=== PATIENT | male | born 1955 | race Caucasian/White ===

== ENCOUNTER 2017-06-29 06:58 | Inpatient (IN) | payer MEDICARE ==
[~2017-06-29] VITALS: Ht 180.3 cm; Wt 75.4 kg
[~2017-06-29 06:58] MED LIST: cholesterol med; htn med; thyroid med
[2017-06-29] MEDS ORDERED: SODIUM CHLORIDE FLUSH 10ML SYR IVF ONE (07:30)
[2017-06-29] MEDS ORDERED: MORPHINE SULFATE 4 MG/ML, 1ML IV PRN (07:30)
[2017-06-29] MEDS ORDERED: ONDANSETRON 2MG/ML, 2ML IVPush ONE (07:30)
[2017-06-29] MEDS ORDERED: SODIUM CHLORIDE 0.9% 1,000ML IVBOLUS ONE (07:30)
[2017-06-29 07:49] LABS: BASOPHILS # (AUTO) 0.04 x10^3/uL (0-0.1); BASOPHILS % (AUTO) 0 % (0-1); EOSINOPHILS # (AUTO) 0.16 x10^3/uL (0-0.4); EOSINOPHILS % (AUTO) 2 % (1-7); LYMPHOCYTES # (AUTO) 1.53 x10^3/uL (1-3.4); LYMPHOCYTES % (AUTO) 16 % (22-44); MD NO; MEAN CORPUSCULAR HEMOGLOBIN 30.2 pg (27.5-34.5); MEAN CORPUSCULAR HGB CONC 33.2 g/dL (33.2-36.2); MEAN CORPUSCULAR VOLUME 90.9 fL (81-97); MEAN PLATELET VOLUME 6.8 fL (7.4-10.4); MONOCYTES # (AUTO) 0.85 x10^3/uL (0.2-0.8); MONOCYTES % (AUTO) 9 % (2-9); NEUTROPHILS # (AUTO) 7.03 x10^3/uL (1.8-6.8); NEUTROPHILS % (AUTO) 73 % (42-75); PLATELET COUNT 304 x10^3/uL (130-400); RED BLOOD COUNT 4.79 x10^6/uL (4.38-5.82); RED CELL DISTRIBUTION WIDTH 15.2 % (9.4-14.8)
[2017-06-29] MEDS ORDERED: ONDANSETRON 2MG/ML, 2ML ONE (07:57)
[2017-06-29] MEDS ORDERED: CLINDAMYCIN PMX 900MG/50ML 50 ML ONE (07:57)
[2017-06-29] MEDS ORDERED: morphine SULFATE 10 MG/ML, 1ML ONE (07:57)
[2017-06-29 07:59] LABS: CHLORIDE 107 mmol/L (98-107)
[2017-06-29 08:00] LABS: ALANINE AMINOTRANSFERASE 58 U/L (12-78); ALBUMIN 3.1 g/dL (3.4-5.0); ANION GAP 4 mmol/L (5-15); CALCIUM 8.8 mg/dL (8.5-10.1)
[2017-06-29] MEDS ORDERED: CLINDAMYCIN PMX 900MG/50ML 50 ML IV ONE (08:00)
[2017-06-29 08:02] LABS: ALKALINE PHOSPHATASE 185 U/L (45-117); BILIRUBIN,TOTAL 1.2 mg/dL (0.2-1.0); CREATININE 1.11 mg/dL (0.7-1.3); TOTAL PROTEIN 8.3 g/dL (6.4-8.2)
[2017-06-29] MEDS ORDERED: SODIUM CHLORIDE 0.9% 1,000 ML IV ONE (09:06)
[2017-06-29] MEDS ORDERED: SODIUM CHLORIDE FLUSH 10ML SYR IVF PRN (09:30)
[2017-06-29] MEDS ORDERED: OXYcodone/APAP 5/325MG TABLET ONE (11:18)
[2017-06-29] MEDS ORDERED: OXYcodone/APAP 5/325MG TABLET PO ONE (11:30)
[2017-06-29] MEDS: morphine SULFATE 10 MG/ML, 1ML IVPush PRN ×4 (13:42→23:07)
[2017-06-29 14:00] VITALS: BP 124/74
[2017-06-29] MEDS ORDERED: VANCOMYCIN PMX 1GM/200ML 200 ML IV ONE (17:00)
[2017-06-29] MEDS ORDERED: BISACODYL 10 MG SUPP PR PRN (17:00)
[2017-06-29] MEDS ORDERED: hydrALAzine 20 MG/ML, 1ML IVPush PRN (17:00)
[2017-06-29] MEDS ORDERED: POLYETHYLENE GLYCOL 17 GM PACKET PO PRN (17:00)
[2017-06-29] MEDS ORDERED: ACETAMINOPHEN 325 MG TABLET PO PRN (17:00)
[2017-06-29] MEDS ORDERED: ENALAPRILAT 1.25 MG/ML, 2ML IVPush PRN (17:00)
[2017-06-29] MEDS ORDERED: VANCOMYCIN PER PHARMACY MC PRN (17:00)
[2017-06-29] MEDS ORDERED: PHARMACOKINETIC CONSULTATION MC ONE (17:30)
[2017-06-29] MEDS ORDERED: VANCOMYCIN 1,400 MG in SODIUM CHLORIDE 0.9% 250 ML IV SCH (17:30)
[2017-06-29] MEDS ORDERED: PHARMACOKINETIC MONITORING MC PRN (17:30)
[2017-06-29 17:32] LABS: HCT (SEDRATE) 44.9 % (39.2-51.8)
[2017-06-29 17:54] LABS: C-REACTIVE PROTEIN, QUANT 2.4 mg/dL (0.02-0.49); FREE T4 (FREE THYROXINE) 0.77 ng/dL (0.76-1.46); HEMOGLOBIN A1C 6.1 % (4.2-6.3); THYROID STIMULATING HORMONE 30.9 mIU/L (0.358-3.740)
[2017-06-29] MEDS: SODIUM CHLORIDE 0.9% 1,000 ML IV SCH (19:44)
[2017-06-29] MEDS: ERTAPENEM 1 GM in SODIUM CHLORIDE 0.9% 50 ML IV SCH (19:44)
[2017-06-29] MEDS: HEPARIN 5,000 UNITS/ML, 1ML SQ SCH (19:45)
[2017-06-29 19:56] VITALS: BP 129/75
[2017-06-29] MEDS: LORazepam 0.5MG TABLET PO PRN (22:55)
[2017-06-30 04:44] VITALS: BP 138/75
[2017-06-30] MEDS: morphine SULFATE 10 MG/ML, 1ML IVPush PRN ×6 (04:50→23:51)
[2017-06-30] MEDS: HEPARIN 5,000 UNITS/ML, 1ML SQ SCH ×3 (04:53→21:10)
[2017-06-30 05:37] LABS: ALBUMIN 2.4 g/dL (3.4-5.0); ANION GAP 4 mmol/L (5-15); CALCIUM 8.2 mg/dL (8.5-10.1); CHLORIDE 110 mmol/L (98-107)
[2017-06-30 05:41] LABS: ALANINE AMINOTRANSFERASE 46 U/L (12-78); ALKALINE PHOSPHATASE 144 U/L (45-117); BILIRUBIN,TOTAL 0.3 mg/dL (0.2-1.0); CHOL/HDL RATIO 3.4; CHOLESTEROL, TOTAL 100 mg/dL (140-239); CREATININE 0.98 mg/dL (0.7-1.3); HDL CHOL % 29 % (26-37); HDL CHOLESTEROL (DIRECT) 29 mg/dL (40-60); LDL CHOLESTEROL,CALCULATED 42 mg/dL (54-169); LDL/HDL RATIO 1.4 (0.5-3.0); TOTAL PROTEIN 6.9 g/dL (6.4-8.2); TRIGLYCERIDES 143 mg/dL (50-200); VLDL CHOLESTEROL 29 mg/dL (0-25)
[2017-06-30 05:43] LABS: BASOPHILS # (AUTO) 0.07 x10^3/uL (0-0.1); BASOPHILS % (AUTO) 1 % (0-1); EOSINOPHILS # (AUTO) 0.17 x10^3/uL (0-0.4); EOSINOPHILS % (AUTO) 3 % (1-7); LYMPHOCYTES # (AUTO) 1.52 x10^3/uL (1-3.4); LYMPHOCYTES % (AUTO) 23 % (22-44); MD NO; MEAN CORPUSCULAR HEMOGLOBIN 30.4 pg (27.5-34.5); MEAN CORPUSCULAR HGB CONC 33.5 g/dL (33.2-36.2); MEAN CORPUSCULAR VOLUME 90.8 fL (81-97); MEAN PLATELET VOLUME 7.2 fL (7.4-10.4); MONOCYTES % (AUTO) 11 % (2-9); NEUTROPHILS # (AUTO) 4.11 x10^3/uL (1.8-6.8); NEUTROPHILS % (AUTO) 63 % (42-75); PLATELET COUNT 231 x10^3/uL (130-400); RED BLOOD COUNT 4.16 x10^6/uL (4.38-5.82); RED CELL DISTRIBUTION WIDTH 15.2 % (9.4-14.8)
[2017-06-30] MEDS: SODIUM CHLORIDE 0.9% 1,000 ML IV SCH (06:03)
[2017-06-30 06:42] VITALS: BP 139/79
[2017-06-30 07:34] VITALS: BP 127/74
[2017-06-30 08:00] LABS: MICROSCOPIC NOT IND
[2017-06-30] MEDS: SENNA/DOCUSATE TABLET PO SCH (08:08)
[2017-06-30 08:15] LABS: CULTURE INDICATED? NO
[2017-06-30 15:38] VITALS: BP 144/75
[2017-06-30] MEDS: VANCOMYCIN 1,400 MG in SODIUM CHLORIDE 0.9% 250 ML IV SCH (17:10)
[2017-06-30 19:58] VITALS: BP 139/72
[2017-06-30] MEDS: ERTAPENEM 1 GM in SODIUM CHLORIDE 0.9% 50 ML IV SCH (20:21)
[2017-06-30] MEDS: ATORVASTATIN 20 MG TABLET PO SCH (21:10)
[2017-06-30] MEDS: LORazepam 0.5MG TABLET PO PRN (21:11)
[2017-07-01] MEDS: morphine SULFATE 10 MG/ML, 1ML IVPush PRN ×6 (02:46→20:42)
[2017-07-01 03:14] VITALS: BP 122/66
[2017-07-01] MEDS: LEVOTHYROXINE 100 MCG TABLET PO SCH (05:46)
[2017-07-01] MEDS: HEPARIN 5,000 UNITS/ML, 1ML SQ SCH ×3 (05:47→19:22)
[2017-07-01 05:51] LABS: ALBUMIN 2.6 g/dL (3.4-5.0); ANION GAP 3 mmol/L (5-15); CALCIUM 8.4 mg/dL (8.5-10.1); CHLORIDE 110 mmol/L (98-107)
[2017-07-01 05:54] LABS: ALANINE AMINOTRANSFERASE 51 U/L (12-78); ALKALINE PHOSPHATASE 166 U/L (45-117); BILIRUBIN,TOTAL 0.7 mg/dL (0.2-1.0); CREATININE 1.03 mg/dL (0.7-1.3); TOTAL PROTEIN 7.3 g/dL (6.4-8.2)
[2017-07-01 08:30] VITALS: BP 170/84
[2017-07-01] MEDS: SENNA/DOCUSATE TABLET PO SCH (08:55)
[2017-07-01] MEDS: VANCOMYCIN 1,400 MG in SODIUM CHLORIDE 0.9% 250 ML IV SCH (11:29)
[2017-07-01] MEDS: OXYcodone IR 5MG TABLET PO PRN ×2 (11:29→19:21)
[2017-07-01] MEDS: LOSARTAN 50MG TABLET PO SCH (13:13)
[2017-07-01 15:37] VITALS: BP 148/69
[2017-07-01] MEDS: ATORVASTATIN 20 MG TABLET PO SCH (19:21)
[2017-07-01] MEDS: ERTAPENEM 1 GM in SODIUM CHLORIDE 0.9% 50 ML IV SCH (19:22)
[2017-07-01 20:59] VITALS: BP 152/76
[2017-07-02] MEDS: OXYcodone IR 5MG TABLET PO PRN ×6 (01:04→21:06)
[2017-07-02 01:48] VITALS: BP 148/72
[2017-07-02] MEDS: LEVOTHYROXINE 100 MCG TABLET PO SCH (04:59)
[2017-07-02] MEDS: HEPARIN 5,000 UNITS/ML, 1ML SQ SCH ×3 (04:59→20:08)
[2017-07-02] MEDS: VANCOMYCIN 1,400 MG in SODIUM CHLORIDE 0.9% 250 ML IV SCH ×2 (05:00→23:55)
[2017-07-02 07:40] VITALS: BP 143/74
[2017-07-02] MEDS: SENNA/DOCUSATE TABLET PO SCH (08:16)
[2017-07-02] MEDS: LOSARTAN 50MG TABLET PO SCH (08:17)
[2017-07-02] MEDS: ONDANSETRON 2MG/ML, 2ML IVPush PRN (14:00)
[2017-07-02 14:52] VITALS: BP 139/81
[2017-07-02 19:12] VITALS: BP 152/78
[2017-07-02] MEDS: LORazepam 0.5MG TABLET PO PRN (20:08)
[2017-07-02] MEDS: ATORVASTATIN 20 MG TABLET PO SCH (20:08)
[2017-07-02] MEDS: ERTAPENEM 1 GM in SODIUM CHLORIDE 0.9% 50 ML IV SCH (20:08)
[2017-07-03] MEDS: morphine SULFATE 10 MG/ML, 1ML IVPush PRN (00:43)
[2017-07-03 01:22] VITALS: BP 98/56
[2017-07-03] MEDS: OXYcodone IR 5MG TABLET PO PRN ×6 (01:44→22:00)
[2017-07-03] MEDS: HEPARIN 5,000 UNITS/ML, 1ML SQ SCH ×3 (05:53→21:34)
[2017-07-03] MEDS: LEVOTHYROXINE 100 MCG TABLET PO SCH (05:53)
[2017-07-03 07:50] VITALS: BP 114/64
[2017-07-03] MEDS: LOSARTAN 50MG TABLET PO SCH (08:30)
[2017-07-03] MEDS: SENNA/DOCUSATE TABLET PO SCH (08:31)
[2017-07-03 09:54] VITALS: BP 104/59
[2017-07-03 13:45] VITALS: BP 115/68
[2017-07-03] MEDS: ONDANSETRON 2MG/ML, 2ML IVPush PRN (14:01)
[2017-07-03] MEDS: VANCOMYCIN 1,400 MG in SODIUM CHLORIDE 0.9% 250 ML IV SCH (17:14)
[2017-07-03 19:32] VITALS: BP 138/70
[2017-07-03] MEDS: ERTAPENEM 1 GM in SODIUM CHLORIDE 0.9% 50 ML IV SCH (20:10)
[2017-07-03] MEDS: LORazepam 0.5MG TABLET PO PRN (20:10)
[2017-07-03] MEDS: ATORVASTATIN 20 MG TABLET PO SCH (20:10)
[2017-07-04 02:38] VITALS: BP 119/67
[2017-07-04] MEDS: OXYcodone IR 5MG TABLET PO PRN ×4 (02:39→19:10)
[2017-07-04] MEDS: LEVOTHYROXINE 100 MCG TABLET PO SCH (05:49)
[2017-07-04] MEDS: HEPARIN 5,000 UNITS/ML, 1ML SQ SCH ×3 (05:49→21:48)
[2017-07-04 06:19] LABS: ANION GAP 6 mmol/L (5-15); BASOPHILS # (AUTO) 0.07 x10^3/uL (0-0.1); BASOPHILS % (AUTO) 1 % (0-1); CALCIUM 8.6 mg/dL (8.5-10.1); CHLORIDE 107 mmol/L (98-107); CREATININE 1.09 mg/dL (0.7-1.3); EOSINOPHILS # (AUTO) 0.24 x10^3/uL (0-0.4); EOSINOPHILS % (AUTO) 3 % (1-7); LYMPHOCYTES # (AUTO) 1.52 x10^3/uL (1-3.4); LYMPHOCYTES % (AUTO) 18 % (22-44); MD NO; MEAN CORPUSCULAR HEMOGLOBIN 30.3 pg (27.5-34.5); MEAN PLATELET VOLUME 7.1 fL (7.4-10.4); MONOCYTES # (AUTO) 0.85 x10^3/uL (0.2-0.8); MONOCYTES % (AUTO) 10 % (2-9); NEUTROPHILS # (AUTO) 5.75 x10^3/uL (1.8-6.8); NEUTROPHILS % (AUTO) 68 % (42-75); PLATELET COUNT 278 x10^3/uL (130-400); RED BLOOD COUNT 4.68 x10^6/uL (4.38-5.82); RED CELL DISTRIBUTION WIDTH 15.3 % (9.4-14.8)
[2017-07-04 07:33] VITALS: BP 130/71
[2017-07-04] MEDS: LOSARTAN 50MG TABLET PO SCH (08:10)
[2017-07-04] MEDS: SENNA/DOCUSATE TABLET PO SCH (08:10)
[2017-07-04] MEDS: VANCOMYCIN 1,400 MG in SODIUM CHLORIDE 0.9% 250 ML IV SCH (11:00)
[2017-07-04] MEDS: GABAPENTIN 100 MG CAPSULE PO SCH ×2 (19:10→20:08)
[2017-07-04] MEDS: METHOCARBAMOL 500 MG TABLET PO SCH ×2 (19:11→20:08)
[2017-07-04 19:41] VITALS: BP 118/67
[2017-07-04] MEDS: ATORVASTATIN 20 MG TABLET PO SCH (20:07)
[2017-07-04] MEDS: ERTAPENEM 1 GM in SODIUM CHLORIDE 0.9% 50 ML IV SCH (20:08)
[2017-07-04] MEDS: LORazepam 0.5MG TABLET PO PRN (21:48)
[2017-07-04 22:41] LABS: AMPHETAMINE SCREEN, URINE Negative (Negative); BARBITURATE SCREEN, URINE Negative (Negative); BENZODIAZEPINE SCREEN, URINE Negative (Negative); CANNABINOID SCREEN, URINE Negative (Negative); COCAINE SCREEN, URINE Negative (Negative); METHADONE SCREEN, URINE Negative (Negative); OPIATE SCREEN, URINE Positive (Negative)
[2017-07-05 01:17] VITALS: BP 117/67
[2017-07-05] MEDS: LEVOTHYROXINE 100 MCG TABLET PO SCH (06:01)
[2017-07-05] MEDS: HEPARIN 5,000 UNITS/ML, 1ML SQ SCH ×2 (06:01→18:10)
[2017-07-05] MEDS: METHOCARBAMOL 500 MG TABLET PO SCH ×4 (06:01→22:34)
[2017-07-05 07:42] VITALS: BP 113/62
[2017-07-05] MEDS: SENNA/DOCUSATE TABLET PO SCH (09:00)
[2017-07-05] MEDS: GABAPENTIN 100 MG CAPSULE PO SCH ×3 (09:09→22:34)
[2017-07-05] MEDS: OXYcodone IR 5MG TABLET PO PRN ×4 (09:10→22:35)
[2017-07-05] MEDS: LOSARTAN 50MG TABLET PO SCH (09:10)
[2017-07-05 13:25] VITALS: BP 102/62
[2017-07-05] MEDS: ERTAPENEM 1 GM in SODIUM CHLORIDE 0.9% 50 ML IV SCH (19:38)
[2017-07-05 19:59] VITALS: BP 102/57
[2017-07-05] MEDS: ATORVASTATIN 20 MG TABLET PO SCH (22:34)
[2017-07-05] MEDS: LORazepam 0.5MG TABLET PO PRN (22:34)
[2017-07-06 01:37] VITALS: BP 112/60
[2017-07-06] MEDS: HEPARIN 5,000 UNITS/ML, 1ML SQ SCH ×3 (02:58→18:23)
[2017-07-06] MEDS: ERTAPENEM 1 GM in SODIUM CHLORIDE 0.9% 50 ML IV SCH (03:14)
[2017-07-06] MEDS: LEVOTHYROXINE 100 MCG TABLET PO SCH (06:21)
[2017-07-06] MEDS: METHOCARBAMOL 500 MG TABLET PO SCH ×4 (06:21→21:41)
[2017-07-06] MEDS: OXYcodone IR 5MG TABLET PO PRN ×5 (06:22→23:32)
[2017-07-06 07:52] VITALS: BP 120/68
[2017-07-06] MEDS: SENNA/DOCUSATE TABLET PO SCH (09:00)
[2017-07-06] MEDS: LOSARTAN 50MG TABLET PO SCH (10:18)
[2017-07-06] MEDS: GABAPENTIN 100 MG CAPSULE PO SCH ×3 (10:18→21:41)
[2017-07-06 13:49] VITALS: BP 120/73
[2017-07-06 19:57] VITALS: BP 126/69
[2017-07-06] MEDS: ATORVASTATIN 20 MG TABLET PO SCH (21:41)
[2017-07-07] MEDS: LORazepam 0.5MG TABLET PO PRN (00:41)
[2017-07-07 01:52] VITALS: BP 148/74
[2017-07-07] MEDS: ERTAPENEM 1 GM in SODIUM CHLORIDE 0.9% 50 ML IV SCH (02:54)
[2017-07-07] MEDS: HEPARIN 5,000 UNITS/ML, 1ML SQ SCH ×3 (02:56→17:34)
[2017-07-07] MEDS: METHOCARBAMOL 500 MG TABLET PO SCH ×4 (05:53→19:59)
[2017-07-07] MEDS: LEVOTHYROXINE 100 MCG TABLET PO SCH (05:54)
[2017-07-07] MEDS: OXYcodone IR 5MG TABLET PO PRN ×3 (05:54→20:00)
[2017-07-07 07:26] VITALS: BP 112/66
[2017-07-07] MEDS: SENNA/DOCUSATE TABLET PO SCH (09:00)
[2017-07-07] MEDS: GABAPENTIN 100 MG CAPSULE PO SCH ×3 (09:22→19:59)
[2017-07-07] MEDS: LOSARTAN 50MG TABLET PO SCH (09:22)
[2017-07-07 13:40] VITALS: BP 123/69
[2017-07-07 19:35] VITALS: BP 112/61
[2017-07-07] MEDS: ATORVASTATIN 20 MG TABLET PO SCH (19:59)
[2017-07-08 00:20] VITALS: BP 119/69
[2017-07-08] MEDS: OXYcodone IR 5MG TABLET PO PRN ×4 (00:28→18:21)
[2017-07-08] MEDS: HEPARIN 5,000 UNITS/ML, 1ML SQ SCH ×3 (01:46→18:16)
[2017-07-08] MEDS: ERTAPENEM 1 GM in SODIUM CHLORIDE 0.9% 50 ML IV SCH (02:44)
[2017-07-08] MEDS: LEVOTHYROXINE 100 MCG TABLET PO SCH (05:36)
[2017-07-08] MEDS: METHOCARBAMOL 500 MG TABLET PO SCH ×4 (05:36→21:37)
[2017-07-08 07:35] VITALS: BP 108/60
[2017-07-08] MEDS: SENNA/DOCUSATE TABLET PO SCH (09:00)
[2017-07-08] MEDS: GABAPENTIN 100 MG CAPSULE PO SCH (09:19)
[2017-07-08] MEDS: LOSARTAN 50MG TABLET PO SCH (09:19)
[2017-07-08 12:48] VITALS: BP 108/63
[2017-07-08] MEDS ORDERED: methylPREDNISolone 4mg DOSE PACK PO SCH ×2 (13:00)
[2017-07-08] MEDS: GABAPENTIN 300 MG CAPSULE PO SCH ×2 (16:34→21:37)
[2017-07-08] MEDS: ATORVASTATIN 20 MG TABLET PO SCH (21:37)
[2017-07-08 21:53] VITALS: BP 128/76
[2017-07-09 01:00] VITALS: BP 110/60
[2017-07-09] MEDS: LORazepam 0.5MG TABLET PO PRN ×2 (01:15→20:42)
[2017-07-09] MEDS: OXYcodone IR 5MG TABLET PO PRN ×3 (01:15→21:58)
[2017-07-09] MEDS: ERTAPENEM 1 GM in SODIUM CHLORIDE 0.9% 50 ML IV SCH (02:42)
[2017-07-09] MEDS: HEPARIN 5,000 UNITS/ML, 1ML SQ SCH ×3 (02:42→16:51)
[2017-07-09] MEDS: LEVOTHYROXINE 100 MCG TABLET PO SCH (05:45)
[2017-07-09] MEDS: METHOCARBAMOL 500 MG TABLET PO SCH ×4 (05:45→20:43)
[2017-07-09 07:54] VITALS: BP 123/64
[2017-07-09] MEDS: SENNA/DOCUSATE TABLET PO SCH (09:00)
[2017-07-09] MEDS: GABAPENTIN 300 MG CAPSULE PO SCH ×3 (09:02→20:43)
[2017-07-09] MEDS: LOSARTAN 50MG TABLET PO SCH (09:02)
[2017-07-09 13:58] VITALS: BP 136/65
[2017-07-09] MEDS: ATORVASTATIN 20 MG TABLET PO SCH (20:43)
[2017-07-09 21:34] VITALS: BP 125/67
[2017-07-10] MEDS: HEPARIN 5,000 UNITS/ML, 1ML SQ SCH ×3 (02:29→17:38)
[2017-07-10] MEDS: OXYcodone IR 5MG TABLET PO PRN ×5 (02:29→22:00)
[2017-07-10] MEDS: ERTAPENEM 1 GM in SODIUM CHLORIDE 0.9% 50 ML IV SCH (02:29)
[2017-07-10 03:52] VITALS: BP 128/67
[2017-07-10] MEDS: LEVOTHYROXINE 100 MCG TABLET PO SCH (05:29)
[2017-07-10] MEDS: METHOCARBAMOL 500 MG TABLET PO SCH ×4 (05:29→22:00)
[2017-07-10 07:01] VITALS: BP 133/76
[2017-07-10] MEDS ORDERED: FLU VACC QS2017-18 (36MOS+) UP/PF 0.5 ML IM-VACC ONE (08:30)
[2017-07-10] MEDS: LOSARTAN 50MG TABLET PO SCH (09:20)
[2017-07-10] MEDS: GABAPENTIN 300 MG CAPSULE PO SCH ×3 (09:20→22:00)
[2017-07-10] MEDS: SENNA/DOCUSATE TABLET PO SCH (09:20)
[2017-07-10] MEDS ORDERED: GABA300C10 PO (10:55)
[2017-07-10] MEDS ORDERED: OXYC5TAB3 PO (10:55)
[2017-07-10] MEDS ORDERED: ACET325T14 PO (10:55)
[2017-07-10] MEDS ORDERED: METH4TAB2 PO (10:55)
[2017-07-10] MEDS ORDERED: CEPH-368 PO (10:55)
[2017-07-10] MEDS ORDERED: SENN1TAB7 PO (10:55)
[2017-07-10] MEDS ORDERED: METH500T7 PO (10:55)
[2017-07-10] MEDS ORDERED: ATOR20TA9 PO (10:55)
[2017-07-10] MEDS ORDERED: LEVO100T PO (10:55)
[2017-07-10] MEDS ORDERED: LOSA50TA2 PO (10:55)
[2017-07-10 13:43] VITALS: BP 130/72
[2017-07-10 21:11] VITALS: BP 108/61
[2017-07-10] MEDS: ATORVASTATIN 20 MG TABLET PO SCH (22:00)
[2017-07-10] MEDS: LORazepam 0.5MG TABLET PO PRN (22:00)
[2017-07-11] MEDS: HEPARIN 5,000 UNITS/ML, 1ML SQ SCH ×2 (02:00→08:54)
[2017-07-11 02:45] VITALS: BP 136/68
[2017-07-11] MEDS: ERTAPENEM 1 GM in SODIUM CHLORIDE 0.9% 50 ML IV SCH ×2 (02:51→02:59)
[2017-07-11 06:42] VITALS: BP 130/63
[2017-07-11] MEDS: METHOCARBAMOL 500 MG TABLET PO SCH ×2 (06:45→12:53)
[2017-07-11] MEDS: LEVOTHYROXINE 100 MCG TABLET PO SCH (06:45)
[2017-07-11] MEDS: OXYcodone IR 5MG TABLET PO PRN ×2 (08:53→15:28)
[2017-07-11] MEDS: GABAPENTIN 300 MG CAPSULE PO SCH (08:54)
[2017-07-11] MEDS: SENNA/DOCUSATE TABLET PO SCH (08:55)
[2017-07-11] MEDS: LOSARTAN 50MG TABLET PO SCH (08:55)
[2017-07-11] MEDS: CEPHALEXIN 500 MG CAPSULE PO SCH ×2 (12:52→15:28)
[2017-07-11 12:56] VITALS: BP 153/76
== END 2017-07-11 16:15 | disposition home or self-care (01) | DRG 300 ==
LOC: ED 09:05 → EDIP 09:06 → ED 09:17 → 3NW 12:30 → 3NE 14:50
PROVIDERS: ADMIT Hospitalist; ATTEND Hospitalist
DX: E11.51 Type 2 diabetes mellitus with diabetic peripheral angiopathy without gangrene (principal); L03.116 Cellulitis of left lower limb; E44.0 Moderate protein-calorie malnutrition; E03.9 Hypothyroidism, unspecified; E78.5 Hyperlipidemia, unspecified; F10.21 Alcohol dependence, in remission; I10 Essential (primary) hypertension; M25.78 Osteophyte, vertebrae; M54.16 Radiculopathy, lumbar region; Z59.0 Homelessness; Z86.73 Personal history of transient ischemic attack (TIA), and cerebral infarction without residual deficits; Z87.891 Personal history of nicotine dependence; Z88.0 Allergy status to penicillin; Z88.2 Allergy status to sulfonamides; Z68.23 Body mass index [BMI] 23.0-23.9, adult; Z23 Encounter for immunization
CPT/HCPCS: 36415; 70450; 72148; 80048; 80053; 80061; 80202; 80307; 81003; 83036; 83605; 83735; 84100; 84439; 84443; 85025; 85651; 86140; 87040; 87070; 87077; 87147; 87186; 87205; 90686; 93005; 93922; 93970; J1335; J1644; J2405; J3370; J7509; 29580-50; G0479; J2270; J7030; J7050

== ENCOUNTER 2017-08-31 10:35 | Emergency (ER) | payer MEDICARE ==
[~2017-08-31] VITALS: Ht 180.3 cm; Wt 78.3 kg
[~2017-08-31 10:35] MED LIST changes: +ACET325T14 PO; +ATOR20TA9 PO; +CEPH-368 PO; +GABA300C10 PO; +LEVO100T PO; +LOSA50TA2 PO; +METH4TAB2 PO; +METH500T7 PO; +OXYC5TAB3 PO; +SENN1TAB7 PO
[2017-08-31] MEDS ORDERED: ALBUTEROL/IPRATROPIUM 2.5MG/0.5MG, 3 ML ONE (11:15)
[2017-08-31 11:16] LABS: BASOPHILS # (AUTO) 0.04 x10^3/uL (0-0.1); BASOPHILS % (AUTO) 0 % (0-1); EOSINOPHILS # (AUTO) 0.19 x10^3/uL (0-0.4); EOSINOPHILS % (AUTO) 2 % (1-7); LYMPHOCYTES # (AUTO) 1.65 x10^3/uL (1-3.4); LYMPHOCYTES % (AUTO) 14 % (22-44); MD NO; MEAN CORPUSCULAR HEMOGLOBIN 29.5 pg (27.5-34.5); MEAN CORPUSCULAR HGB CONC 33.1 g/dL (33.2-36.2); MEAN CORPUSCULAR VOLUME 89.2 fL (81-97); MEAN PLATELET VOLUME 7.2 fL (7.4-10.4); MONOCYTES # (AUTO) 0.96 x10^3/uL (0.2-0.8); MONOCYTES % (AUTO) 8 % (2-9); NEUTROPHILS # (AUTO) 9.08 x10^3/uL (1.8-6.8); NEUTROPHILS % (AUTO) 76 % (42-75); PLATELET COUNT 307 x10^3/uL (130-400); RED BLOOD COUNT 4.36 x10^6/uL (4.38-5.82); RED CELL DISTRIBUTION WIDTH 16.6 % (9.4-14.8)
[2017-08-31 11:27] LABS: ANION GAP 6 mmol/L (5-15); CALCIUM 8.3 mg/dL (8.5-10.1); CHLORIDE 110 mmol/L (98-107); CREATININE 1.01 mg/dL (0.7-1.3)
[2017-08-31] MEDS ORDERED: ALBUTEROL/IPRATROPIUM 2.5MG/0.5MG, 3 ML NPPB ONE (11:30)
[2017-08-31 11:31] LABS: TROPONIN I < 0.015 ng/mL (0.000-0.045)
[2017-08-31] MEDS ORDERED: BENZONATATE 100 MG CAPSULE PO ONE (12:00)
[2017-08-31 12:27] VITALS: BP 136/67
== END 2017-08-31 13:01 | disposition home or self-care (01) ==
LOC: ED 11:48
DX: J44.1 Chronic obstructive pulmonary disease with (acute) exacerbation (principal); E11.9 Type 2 diabetes mellitus without complications; I10 Essential (primary) hypertension; Z86.718 Personal history of other venous thrombosis and embolism; Z87.891 Personal history of nicotine dependence
CPT/HCPCS: 36415; 71046; 80048; 82040; 84484; 85025; 93005; 94640; 99285; J7512; J7620

== ENCOUNTER 2018-05-02 19:01 | Inpatient (IN) | payer MEDICARE ==
[~2018-05-02] VITALS: Ht 162.6 cm; Wt 87.1 kg
[~2018-05-02 19:01] MED LIST changes: -SENN1TAB7 PO; +SENN1TAB8 PO
[2018-05-02] MEDS ORDERED: BISACODYL 10 MG SUPP PR PRN (23:30)
[2018-05-02] MEDS ORDERED: ONDANSETRON ODT 4 MG PO PRN (23:30)
[2018-05-02] MEDS ORDERED: CEFTRIAXONE 1,000 MG in SODIUM CHLORIDE 0.9% 50 ML IV SCH (23:30)
[2018-05-02] MEDS ORDERED: POLYETHYLENE GLYCOL 17 GM PACKET PO PRN (23:30)
[2018-05-02] MEDS: GUAIFENESIN/DM 200-20MG, 10ML UDC PO PRN (23:56)
[2018-05-02] MEDS: BUTALB/APAP/CAFFEINE 50MG/325MG/40MG PO PRN (23:56)
[2018-05-02] MEDS: ATORVASTATIN 20 MG TABLET PO SCH (23:56)
[2018-05-02] MEDS: GABAPENTIN 300 MG CAPSULE PO SCH (23:56)
[2018-05-02] MEDS: SODIUM CHLORIDE 0.9% 1,000 ML IV SCH (23:57)
[2018-05-02] MEDS: methylPREDNISolone SOD SUCC 125 MG/2 ML IVPush SCH (23:57)
[2018-05-02] MEDS: HEPARIN 5,000 UNITS/ML, 1ML SQ SCH (23:57)
[2018-05-03] MEDS: AZITHROMYCIN 500 MG in SODIUM CHLORIDE 0.9% 250 ML IV SCH (00:22)
[2018-05-03] MEDS: TEMAZEPAM 15 MG CAPSULE PO PRN ×2 (00:22→20:03)
[2018-05-03 01:00] VITALS: BP 135/70
[2018-05-03] MEDS: BUTALB/APAP/CAFFEINE 50MG/325MG/40MG PO PRN ×2 (05:10→20:03)
[2018-05-03] MEDS: LEVOTHYROXINE 100 MCG TABLET PO SCH (05:10)
[2018-05-03 05:51] LABS: MEAN CORPUSCULAR HEMOGLOBIN 29.7 pg (27.5-34.5); MEAN CORPUSCULAR HGB CONC 33.1 g/dL (33.2-36.2); MEAN CORPUSCULAR VOLUME 89.9 fL (81-97); MEAN PLATELET VOLUME 8.1 fL (7.4-10.4); PLATELET COUNT 221 x10^3/uL (130-400); RED BLOOD COUNT 4.53 x10^6/uL (4.38-5.82); RED CELL DISTRIBUTION WIDTH 15.4 % (9.4-14.8)
[2018-05-03 05:56] LABS: CULTURE INDICATED? NO; MICROSCOPIC NOT IND
[2018-05-03 05:59] LABS: CALCIUM 8.6 mg/dL (8.5-10.1); CHLORIDE 110 mmol/L (98-107)
[2018-05-03 06:05] VITALS: BP 135/70
[2018-05-03 06:05] LABS: ALANINE AMINOTRANSFERASE 24 U/L (12-78); ALBUMIN 2.8 g/dL (3.4-5.0); ALKALINE PHOSPHATASE 170 U/L (45-117); ANION GAP 11 mmol/L (5-15); BILIRUBIN,TOTAL 0.4 mg/dL (0.2-1.0); CREATININE 1.13 mg/dL (0.7-1.3); TOTAL PROTEIN 6.9 g/dL (6.4-8.2)
[2018-05-03 07:14] VITALS: BP 150/76
[2018-05-03 07:49] LABS: BASOPHILS # (AUTO) 0.02 x10^3/uL (0-0.1); BASOPHILS % (AUTO) 0 % (0-1); EOSINOPHILS % (AUTO) 0 % (1-7); LYMPHOCYTES # (AUTO) 0.84 x10^3/uL (1-3.4); LYMPHOCYTES % (AUTO) 4 % (22-44); MD SCAN; MONOCYTES # (AUTO) 0.12 x10^3/uL (0.2-0.8); MONOCYTES % (AUTO) 1 % (2-9); NEUTROPHILS # (AUTO) 17.96 x10^3/uL (1.8-6.8); NEUTROPHILS % (AUTO) 95 % (42-75)
[2018-05-03] MEDS: LOSARTAN 50MG TABLET PO SCH (09:20)
[2018-05-03] MEDS: ACETAMINOPHEN 325 MG TABLET PO PRN ×2 (09:20→21:46)
[2018-05-03] MEDS: SENNA/DOCUSATE TABLET PO SCH (09:21)
[2018-05-03] MEDS: GABAPENTIN 300 MG CAPSULE PO SCH ×3 (09:21→20:02)
[2018-05-03] MEDS: methylPREDNISolone SOD SUCC 125 MG/2 ML IVPush SCH ×3 (09:21→23:34)
[2018-05-03] MEDS: HEPARIN 5,000 UNITS/ML, 1ML SQ SCH ×3 (09:21→23:34)
[2018-05-03] MEDS: SODIUM CHLORIDE 0.9% 1,000 ML IV SCH ×2 (09:30→20:02)
[2018-05-03] MEDS: ALBUTEROL/IPRATROPIUM 2.5MG/0.5MG, 3 ML NPPB PRN ×2 (10:31→22:56)
[2018-05-03] MEDS: GUAIFENESIN/DM 200-20MG, 10ML UDC PO PRN ×2 (10:42→21:44)
[2018-05-03 12:02] VITALS: BP 143/78
[2018-05-03] MEDS: ALBUTEROL/IPRATROPIUM 2.5MG/0.5MG, 3 ML NPPB SCH ×2 (14:20→19:05)
[2018-05-03 19:30] VITALS: BP 135/62
[2018-05-03] MEDS: ATORVASTATIN 20 MG TABLET PO SCH (20:02)
[2018-05-03] MEDS: BENZONATATE 100 MG CAPSULE PO PRN (22:59)
[2018-05-03] MEDS: CEFTRIAXONE PMX 1GM/50ML 50 ML IV SCH (23:22)
[2018-05-04] MEDS: AZITHROMYCIN 500 MG in SODIUM CHLORIDE 0.9% 250 ML IV SCH (00:25)
[2018-05-04 02:12] VITALS: BP 143/74
[2018-05-04] MEDS: BUTALB/APAP/CAFFEINE 50MG/325MG/40MG PO PRN (03:19)
[2018-05-04 05:18] LABS: BASOPHILS # (AUTO) 0.01 x10^3/uL (0-0.1); BASOPHILS % (AUTO) 0 % (0-1); EOSINOPHILS % (AUTO) 0 % (1-7); LYMPHOCYTES # (AUTO) 0.52 x10^3/uL (1-3.4); LYMPHOCYTES % (AUTO) 3 % (22-44); MD NO; MEAN CORPUSCULAR HEMOGLOBIN 29.8 pg (27.5-34.5); MEAN CORPUSCULAR VOLUME 90.4 fL (81-97); MEAN PLATELET VOLUME 7.9 fL (7.4-10.4); MONOCYTES # (AUTO) 0.45 x10^3/uL (0.2-0.8); MONOCYTES % (AUTO) 3 % (2-9); NEUTROPHILS # (AUTO) 15.07 x10^3/uL (1.8-6.8); NEUTROPHILS % (AUTO) 94 % (42-75); PLATELET COUNT 220 x10^3/uL (130-400); RED BLOOD COUNT 4.06 x10^6/uL (4.38-5.82); RED CELL DISTRIBUTION WIDTH 15.6 % (9.4-14.8)
[2018-05-04 05:36] LABS: ALBUMIN 2.6 g/dL (3.4-5.0); ANION GAP 9 mmol/L (5-15); CALCIUM 8.9 mg/dL (8.5-10.1); CHLORIDE 108 mmol/L (98-107); CREATININE 1.41 mg/dL (0.7-1.3)
[2018-05-04] MEDS ORDERED: DEXTROSE 50%, 50ML SYRINGE IVPush PRN (06:00)
[2018-05-04] MEDS ORDERED: DEXTROSE 4 GM TAB.CHEW PO PRN (06:00)
[2018-05-04] MEDS ORDERED: GLUCAGON 1 MG IM PRN (06:00)
[2018-05-04] MEDS ORDERED: SODIUM CHLORIDE 0.9%, 500ML IVBOLUS ONE (06:00)
[2018-05-04] MEDS ORDERED: INSULIN REGULAR 100 UNITS/ML, 3ML VIAL SQ-INSULIN SCH ×2 (06:30)
[2018-05-04] MEDS: BENZONATATE 100 MG CAPSULE PO PRN ×2 (06:33→14:43)
[2018-05-04] MEDS: LEVOTHYROXINE 100 MCG TABLET PO SCH (06:33)
[2018-05-04 06:34] LABS: HEMOGLOBIN A1C 6.2 % (4.2-6.3)
[2018-05-04] MEDS: INSULIN LISPRO 100 UNITS/ML, PEN SQ-INSULIN SCH ×4 (07:00→20:49)
[2018-05-04 07:08] VITALS: BP 163/86
[2018-05-04] MEDS: ALBUTEROL/IPRATROPIUM 2.5MG/0.5MG, 3 ML NPPB SCH ×4 (07:28→18:35)
[2018-05-04] MEDS: methylPREDNISolone SOD SUCC 125 MG/2 ML IVPush SCH ×2 (07:47→16:31)
[2018-05-04] MEDS: HEPARIN 5,000 UNITS/ML, 1ML SQ SCH ×2 (07:48→16:31)
[2018-05-04] MEDS ORDERED: INSULIN LISPRO 100 UNITS/ML, PEN SQ-INSULIN ONE (08:00)
[2018-05-04] MEDS: GABAPENTIN 300 MG CAPSULE PO SCH ×3 (08:52→20:29)
[2018-05-04] MEDS: SENNA/DOCUSATE TABLET PO SCH (08:52)
[2018-05-04] MEDS: LOSARTAN 50MG TABLET PO SCH (08:53)
[2018-05-04] MEDS: SODIUM CHLORIDE FLUSH 10ML SYR IVF SCH ×2 (08:53→20:31)
[2018-05-04 12:57] LABS: ANION GAP 13 mmol/L (5-15); CALCIUM 8.4 mg/dL (8.5-10.1); CHLORIDE 111 mmol/L (98-107); CREATININE 1.17 mg/dL (0.7-1.3)
[2018-05-04 13:37] VITALS: BP 149/76
[2018-05-04] MEDS: SODIUM CHLORIDE 0.9% 1,000 ML IV SCH (16:31)
[2018-05-04] MEDS: GUAIFENESIN/DM 200-20MG, 10ML UDC PO PRN (18:10)
[2018-05-04 19:06] VITALS: BP 157/76
[2018-05-04] MEDS: ATORVASTATIN 20 MG TABLET PO SCH (20:29)
[2018-05-04] MEDS: TEMAZEPAM 15 MG CAPSULE PO PRN (20:30)
[2018-05-04] MEDS: CEFTRIAXONE PMX 1GM/50ML 50 ML IV SCH (23:16)
[2018-05-05] MEDS: methylPREDNISolone SOD SUCC 125 MG/2 ML IVPush SCH ×3 (00:04→17:06)
[2018-05-05] MEDS: AZITHROMYCIN 500 MG in SODIUM CHLORIDE 0.9% 250 ML IV SCH (00:04)
[2018-05-05] MEDS: HEPARIN 5,000 UNITS/ML, 1ML SQ SCH ×3 (00:04→17:06)
[2018-05-05] MEDS: BENZONATATE 100 MG CAPSULE PO PRN ×3 (00:18→19:57)
[2018-05-05] MEDS: ACETAMINOPHEN 325 MG TABLET PO PRN ×2 (00:18→10:47)
[2018-05-05 01:17] VITALS: BP 153/84
[2018-05-05 05:15] LABS: BASOPHILS # (AUTO) 0.01 x10^3/uL (0-0.1); BASOPHILS % (AUTO) 0 % (0-1); EOSINOPHILS % (AUTO) 0 % (1-7); LYMPHOCYTES # (AUTO) 0.75 x10^3/uL (1-3.4); LYMPHOCYTES % (AUTO) 5 % (22-44); MD NO; MEAN CORPUSCULAR HEMOGLOBIN 30.2 pg (27.5-34.5); MEAN CORPUSCULAR HGB CONC 33.5 g/dL (33.2-36.2); MEAN CORPUSCULAR VOLUME 90.1 fL (81-97); MEAN PLATELET VOLUME 7.7 fL (7.4-10.4); MONOCYTES % (AUTO) 4 % (2-9); NEUTROPHILS # (AUTO) 13.04 x10^3/uL (1.8-6.8); NEUTROPHILS % (AUTO) 91 % (42-75); PLATELET COUNT 218 x10^3/uL (130-400); RED BLOOD COUNT 4.13 x10^6/uL (4.38-5.82); RED CELL DISTRIBUTION WIDTH 16.1 % (9.4-14.8)
[2018-05-05 05:27] LABS: ALBUMIN 2.4 g/dL (3.4-5.0); ANION GAP 9 mmol/L (5-15); CALCIUM 8.4 mg/dL (8.5-10.1); CHLORIDE 112 mmol/L (98-107)
[2018-05-05 05:28] LABS: CREATININE 1.02 mg/dL (0.7-1.3)
[2018-05-05] MEDS: LEVOTHYROXINE 100 MCG TABLET PO SCH ×2 (05:38→05:56)
[2018-05-05] MEDS: GUAIFENESIN/DM 200-20MG, 10ML UDC PO PRN (05:56)
[2018-05-05] MEDS: ALBUTEROL/IPRATROPIUM 2.5MG/0.5MG, 3 ML NPPB SCH ×4 (07:00→18:40)
[2018-05-05 07:15] VITALS: BP 164/92
[2018-05-05] MEDS: SENNA/DOCUSATE TABLET PO SCH (07:52)
[2018-05-05] MEDS: INSULIN LISPRO 100 UNITS/ML, PEN SQ-INSULIN SCH ×4 (08:04→19:56)
[2018-05-05] MEDS: GABAPENTIN 300 MG CAPSULE PO SCH ×3 (08:06→19:57)
[2018-05-05] MEDS: SODIUM CHLORIDE FLUSH 10ML SYR IVF SCH ×2 (08:06→19:56)
[2018-05-05] MEDS: LOSARTAN 50MG TABLET PO SCH (08:06)
[2018-05-05 10:23] VITALS: BP 188/124
[2018-05-05] MEDS ORDERED: ENALAPRILAT 1.25 MG/ML, 2ML IV PRN (10:30)
[2018-05-05] MEDS ORDERED: LABETALOL 5MG/ML, 20ML IVPush PRN (10:30)
[2018-05-05] MEDS ORDERED: hydrALAzine 20 MG/ML, 1ML IV PRN (10:30)
[2018-05-05 10:40] VITALS: BP 167/87
[2018-05-05 16:45] VITALS: BP 162/86
[2018-05-05 18:48] VITALS: BP 144/74
[2018-05-05] MEDS: ATORVASTATIN 20 MG TABLET PO SCH (19:57)
[2018-05-05] MEDS: CEFTRIAXONE PMX 1GM/50ML 50 ML IV SCH (23:12)
[2018-05-06] MEDS: AZITHROMYCIN 500 MG in SODIUM CHLORIDE 0.9% 250 ML IV SCH (00:38)
[2018-05-06] MEDS: methylPREDNISolone SOD SUCC 125 MG/2 ML IVPush SCH ×3 (00:39→15:18)
[2018-05-06] MEDS: HEPARIN 5,000 UNITS/ML, 1ML SQ SCH ×3 (00:39→15:18)
[2018-05-06 02:55] VITALS: BP 147/88
[2018-05-06] MEDS: ALBUTEROL/IPRATROPIUM 2.5MG/0.5MG, 3 ML NPPB SCH ×5 (03:06→19:35)
[2018-05-06] MEDS: GUAIFENESIN/DM 200-20MG, 10ML UDC PO PRN ×2 (03:20→21:29)
[2018-05-06] MEDS: LEVOTHYROXINE 100 MCG TABLET PO SCH (05:14)
[2018-05-06 05:15] LABS: BASOPHILS # (AUTO) 0.01 x10^3/uL (0-0.1); BASOPHILS % (AUTO) 0 % (0-1); EOSINOPHILS % (AUTO) 0 % (1-7); LYMPHOCYTES # (AUTO) 0.82 x10^3/uL (1-3.4); LYMPHOCYTES % (AUTO) 8 % (22-44); MD NO; MEAN CORPUSCULAR HGB CONC 33.3 g/dL (33.2-36.2); MEAN CORPUSCULAR VOLUME 89.9 fL (81-97); MEAN PLATELET VOLUME 7.4 fL (7.4-10.4); MONOCYTES # (AUTO) 0.33 x10^3/uL (0.2-0.8); MONOCYTES % (AUTO) 3 % (2-9); NEUTROPHILS # (AUTO) 9.87 x10^3/uL (1.8-6.8); NEUTROPHILS % (AUTO) 90 % (42-75); PLATELET COUNT 211 x10^3/uL (130-400); RED BLOOD COUNT 4.18 x10^6/uL (4.38-5.82)
[2018-05-06] MEDS: ACETAMINOPHEN 325 MG TABLET PO PRN (05:18)
[2018-05-06] MEDS: BENZONATATE 100 MG CAPSULE PO PRN ×2 (05:42→15:19)
[2018-05-06 07:29] VITALS: BP 147/87
[2018-05-06] MEDS: INSULIN LISPRO 100 UNITS/ML, PEN SQ-INSULIN SCH ×4 (07:49→21:00)
[2018-05-06] MEDS: SODIUM CHLORIDE FLUSH 10ML SYR IVF SCH ×2 (07:53→21:29)
[2018-05-06] MEDS: LOSARTAN 50MG TABLET PO SCH (07:54)
[2018-05-06] MEDS: SENNA/DOCUSATE TABLET PO SCH (07:54)
[2018-05-06] MEDS: GABAPENTIN 300 MG CAPSULE PO SCH ×3 (07:54→21:28)
[2018-05-06] MEDS: BUTALB/APAP/CAFFEINE 50MG/325MG/40MG PO PRN ×2 (08:15→15:19)
[2018-05-06 14:52] VITALS: BP 137/73
[2018-05-06 19:31] VITALS: BP 164/91
[2018-05-06] MEDS: ATORVASTATIN 20 MG TABLET PO SCH (21:28)
[2018-05-06] MEDS: CEFTRIAXONE PMX 1GM/50ML 50 ML IV SCH (23:28)
[2018-05-07] MEDS: HEPARIN 5,000 UNITS/ML, 1ML SQ SCH ×3 (00:05→16:59)
[2018-05-07] MEDS: methylPREDNISolone SOD SUCC 125 MG/2 ML IVPush SCH ×3 (00:05→17:00)
[2018-05-07] MEDS: BENZONATATE 100 MG CAPSULE PO PRN (00:05)
[2018-05-07] MEDS: AZITHROMYCIN 500 MG in SODIUM CHLORIDE 0.9% 250 ML IV SCH (00:06)
[2018-05-07] MEDS: TEMAZEPAM 15 MG CAPSULE PO PRN ×2 (01:15→21:52)
[2018-05-07] MEDS: ACETAMINOPHEN 325 MG TABLET PO PRN ×2 (01:27→06:03)
[2018-05-07 02:10] VITALS: BP 153/83
[2018-05-07] MEDS: DIPHENHYDRAMINE 25 MG CAPSULE PO PRN (02:12)
[2018-05-07] MEDS ORDERED: FAMOTIDINE 20 MG TABLET PO ONE (05:30)
[2018-05-07] MEDS: LEVOTHYROXINE 100 MCG TABLET PO SCH (05:55)
[2018-05-07 07:15] VITALS: BP 153/80
[2018-05-07] MEDS: ALBUTEROL/IPRATROPIUM 2.5MG/0.5MG, 3 ML NPPB SCH ×4 (07:15→18:51)
[2018-05-07] MEDS: INSULIN LISPRO 100 UNITS/ML, PEN SQ-INSULIN SCH ×4 (07:36→21:00)
[2018-05-07] MEDS: SODIUM CHLORIDE FLUSH 10ML SYR IVF SCH ×2 (07:38→21:53)
[2018-05-07] MEDS: GABAPENTIN 300 MG CAPSULE PO SCH ×3 (08:30→21:52)
[2018-05-07] MEDS: LOSARTAN 50MG TABLET PO SCH (08:31)
[2018-05-07] MEDS: SENNA/DOCUSATE TABLET PO SCH (08:31)
[2018-05-07] MEDS: GUAIFENESIN/DM 200-20MG, 10ML UDC PO PRN (08:38)
[2018-05-07] MEDS: BUTALB/APAP/CAFFEINE 50MG/325MG/40MG PO PRN ×3 (08:49→21:52)
[2018-05-07 12:50] VITALS: BP 168/90
[2018-05-07] MEDS ORDERED: AZIT500T PO (13:46)
[2018-05-07] MEDS ORDERED: IPRA3AMP30 NPPB (13:46)
[2018-05-07] MEDS ORDERED: CEFD300C37 PO (13:46)
[2018-05-07] MEDS ORDERED: PRED5TAB PO (13:46)
[2018-05-07] MEDS ORDERED: BENZ-17 PO (13:46)
[2018-05-07] MEDS: ATORVASTATIN 20 MG TABLET PO SCH (21:52)
[2018-05-07 21:59] VITALS: BP 155/88
[2018-05-07] MEDS: CEFTRIAXONE PMX 1GM/50ML 50 ML IV SCH (22:43)
[2018-05-08] MEDS: methylPREDNISolone SOD SUCC 125 MG/2 ML IVPush SCH ×2 (00:07→07:44)
[2018-05-08] MEDS: AZITHROMYCIN 500 MG in SODIUM CHLORIDE 0.9% 250 ML IV SCH (00:07)
[2018-05-08] MEDS: HEPARIN 5,000 UNITS/ML, 1ML SQ SCH ×4 (00:07→23:41)
[2018-05-08] MEDS: GUAIFENESIN/DM 200-20MG, 10ML UDC PO PRN ×2 (00:14→07:45)
[2018-05-08 02:08] VITALS: BP 165/86
[2018-05-08] MEDS: LEVOTHYROXINE 100 MCG TABLET PO SCH (06:01)
[2018-05-08] MEDS: BUTALB/APAP/CAFFEINE 50MG/325MG/40MG PO PRN ×4 (06:01→23:41)
[2018-05-08 06:58] VITALS: BP 172/93
[2018-05-08] MEDS: ALBUTEROL/IPRATROPIUM 2.5MG/0.5MG, 3 ML NPPB SCH ×4 (07:20→19:38)
[2018-05-08] MEDS: INSULIN LISPRO 100 UNITS/ML, PEN SQ-INSULIN SCH (07:42)
[2018-05-08] MEDS: SODIUM CHLORIDE FLUSH 10ML SYR IVF SCH ×2 (07:44→20:36)
[2018-05-08] MEDS: BENZONATATE 100 MG CAPSULE PO PRN ×2 (07:44→17:22)
[2018-05-08] MEDS: GABAPENTIN 300 MG CAPSULE PO SCH ×3 (07:45→20:36)
[2018-05-08] MEDS: SENNA/DOCUSATE TABLET PO SCH (07:46)
[2018-05-08] MEDS: LOSARTAN 50MG TABLET PO SCH (07:46)
[2018-05-08 15:38] VITALS: BP 147/66
[2018-05-08 18:49] VITALS: BP 159/82
[2018-05-08] MEDS: DIPHENHYDRAMINE 25 MG CAPSULE PO PRN (20:36)
[2018-05-08] MEDS: TEMAZEPAM 15 MG CAPSULE PO PRN (20:36)
[2018-05-08] MEDS: ATORVASTATIN 20 MG TABLET PO SCH (20:36)
[2018-05-08] MEDS: CEFTRIAXONE PMX 1GM/50ML 50 ML IV SCH (23:41)
[2018-05-09 00:22] VITALS: BP 197/97
[2018-05-09 00:24] VITALS: BP 166/85
[2018-05-09] MEDS: AZITHROMYCIN 500 MG in SODIUM CHLORIDE 0.9% 250 ML IV SCH (00:32)
[2018-05-09] MEDS: GUAIFENESIN/DM 200-20MG, 10ML UDC PO PRN (00:39)
[2018-05-09 02:53] VITALS: BP 155/85
[2018-05-09] MEDS: DIPHENHYDRAMINE 25 MG CAPSULE PO PRN (03:02)
[2018-05-09] MEDS: BENZONATATE 100 MG CAPSULE PO PRN (03:02)
[2018-05-09] MEDS: BUTALB/APAP/CAFFEINE 50MG/325MG/40MG PO PRN (06:14)
[2018-05-09] MEDS: LEVOTHYROXINE 100 MCG TABLET PO SCH (06:14)
== END 2018-05-09 12:55 | disposition home or self-care (01) | DRG 871 ==
LOC: 3NE 22:51
PROVIDERS: ADMIT Family Medicine; ATTEND Family Medicine
DX: A41.9 Sepsis, unspecified organism (principal); J18.9 Pneumonia, unspecified organism; J96.00 Acute respiratory failure, unspecified whether with hypoxia or hypercapnia; J44.1 Chronic obstructive pulmonary disease with (acute) exacerbation; D68.69 Other thrombophilia; J44.0 Chronic obstructive pulmonary disease with (acute) lower respiratory infection; I10 Essential (primary) hypertension; E78.5 Hyperlipidemia, unspecified; I48.2 Chronic atrial fibrillation; S81.802A Unspecified open wound, left lower leg, initial encounter; E03.9 Hypothyroidism, unspecified; X58.XXXA Exposure to other specified factors, initial encounter; T38.0X5A Adverse effect of glucocorticoids and synthetic analogues, initial encounter; R73.9 Hyperglycemia, unspecified; F41.9 Anxiety disorder, unspecified; K59.00 Constipation, unspecified; Z87.891 Personal history of nicotine dependence; Z88.0 Allergy status to penicillin; Z88.2 Allergy status to sulfonamides; Y93.89 Activity, other specified; Y92.89 Other specified places as the place of occurrence of the external cause; Y99.8 Other external cause status
CPT/HCPCS: 36415; 71045; 80048; 80053; 81003; 82040; 82962; 83036; 85025; 87040; 87070; 87081; 87205; 87880; 90656; 93970; 94640; G0378; J0456; J0696; J1644; J1815; J7620; J0360; J2930; J7030; J7040; J7050; J7512; Q0163

== ENCOUNTER 2018-06-21 22:21 | Emergency (ER) | payer MEDICARE ==
[~2018-06-21] VITALS: Ht 180.3 cm; Wt 80.3 kg
[~2018-06-21 22:21] MED LIST changes: +ATOR20TA37 PO; -ATOR20TA9 PO; +AZIT500T PO; +BENZ-17 PO; +CEFD300C37 PO; +IPRA3AMP30 NPPB; +PRED5TAB PO
[2018-06-21] MEDS ORDERED: ACETAMINOPHEN 325 MG TABLET ONE (22:42)
[2018-06-21 23:00] LABS: BASOPHILS % (AUTO) 0 % (0-1); EOSINOPHILS # (AUTO) 0.03 x10^3/uL (0-0.4); EOSINOPHILS % (AUTO) 0 % (1-7); LYMPHOCYTES # (AUTO) 0.77 x10^3/uL (1-3.4); LYMPHOCYTES % (AUTO) 6 % (22-44); MD NO; MEAN CORPUSCULAR HEMOGLOBIN 29.8 pg (27.5-34.5); MEAN CORPUSCULAR HGB CONC 33.5 g/dL (33.2-36.2); MEAN CORPUSCULAR VOLUME 89.1 fL (81-97); MEAN PLATELET VOLUME 7.4 fL (7.4-10.4); MONOCYTES # (AUTO) 0.76 x10^3/uL (0.2-0.8); MONOCYTES % (AUTO) 6 % (2-9); NEUTROPHILS # (AUTO) 11.43 x10^3/uL (1.8-6.8); NEUTROPHILS % (AUTO) 88 % (42-75); PLATELET COUNT 256 x10^3/uL (130-400); RED BLOOD COUNT 4.71 x10^6/uL (4.38-5.82); RED CELL DISTRIBUTION WIDTH 16.5 % (9.4-14.8)
[2018-06-21] MEDS ORDERED: ACETAMINOPHEN 325 MG TABLET PO ONE (23:00)
[2018-06-21 23:12] LABS: ALANINE AMINOTRANSFERASE 38 U/L (12-78); ALBUMIN 3.3 g/dL (3.4-5.0); ANION GAP 9 mmol/L (5-15); CALCIUM 8.5 mg/dL (8.5-10.1); CHLORIDE 109 mmol/L (98-107); CREATININE 1.02 mg/dL (0.7-1.3)
[2018-06-21 23:14] LABS: ALKALINE PHOSPHATASE 213 U/L (45-117); BILIRUBIN,TOTAL 0.5 mg/dL (0.2-1.0); TOTAL PROTEIN 7.7 g/dL (6.4-8.2)
[2018-06-22 00:14] VITALS: BP 124/58
== END 2018-06-22 00:16 | disposition home or self-care (01) ==
LOC: ED 23:21
DX: J06.9 Acute upper respiratory infection, unspecified (principal); J18.9 Pneumonia, unspecified organism; M54.2 Cervicalgia; I10 Essential (primary) hypertension; E11.9 Type 2 diabetes mellitus without complications; J44.9 Chronic obstructive pulmonary disease, unspecified; R51 Headache; G89.29 Other chronic pain; Z59.0 Homelessness; Z86.73 Personal history of transient ischemic attack (TIA), and cerebral infarction without residual deficits
CPT/HCPCS: 36415; 71045; 80053; 85025; 99284

== ENCOUNTER 2018-06-27 23:27 | Inpatient (IN) | payer MEDICARE ==
[~2018-06-27] VITALS: Ht 180.3 cm; Wt 78.1 kg
[~2018-06-27 23:27] MED LIST changes: +FLUT1AER INH; +GUAI600T31 PO; +LEVO50TA PO; +LEVO750T26 PO; +PRED20TA PO
[2018-06-28] MEDS ORDERED: LEVOFLOXACIN/PMX 750MG/150ML 150 ML IV ONE
[2018-06-28] MEDS ORDERED: LEVOFLOXACIN/PMX 750MG/150ML 150 ML ONE (00:08)
[2018-06-28] MEDS ORDERED: MORPHINE SULFATE 4 MG/ML, 1ML ONE ×2 (00:08→02:40)
[2018-06-28 00:15] LABS: BASOPHILS # (AUTO) 0.06 x10^3/uL (0-0.1); BASOPHILS % (AUTO) 0 % (0-1); EOSINOPHILS # (AUTO) 0.25 x10^3/uL (0-0.4); EOSINOPHILS % (AUTO) 2 % (1-7); LYMPHOCYTES # (AUTO) 1.72 x10^3/uL (1-3.4); LYMPHOCYTES % (AUTO) 13 % (22-44); MD NO; MEAN CORPUSCULAR HEMOGLOBIN 29.1 pg (27.5-34.5); MEAN CORPUSCULAR HGB CONC 33.1 g/dL (33.2-36.2); MEAN CORPUSCULAR VOLUME 88.1 fL (81-97); MEAN PLATELET VOLUME 7.2 fL (7.4-10.4); MONOCYTES # (AUTO) 1.12 x10^3/uL (0.2-0.8); MONOCYTES % (AUTO) 8 % (2-9); NEUTROPHILS # (AUTO) 10.31 x10^3/uL (1.8-6.8); NEUTROPHILS % (AUTO) 77 % (42-75); PLATELET COUNT 293 x10^3/uL (130-400); RED BLOOD COUNT 4.04 x10^6/uL (4.38-5.82); RED CELL DISTRIBUTION WIDTH 16.4 % (9.4-14.8)
[2018-06-28] MEDS ORDERED: ALBUTEROL/IPRATROPIUM 2.5MG/0.5MG, 3 ML ONE (00:21)
[2018-06-28 00:24] LABS: ALBUMIN 2.4 g/dL (3.4-5.0); ANION GAP 8 mmol/L (5-15); CALCIUM 8.5 mg/dL (8.5-10.1); CHLORIDE 113 mmol/L (98-107); CREATININE 0.91 mg/dL (0.7-1.3)
[2018-06-28] MEDS ORDERED: ALBUTEROL/IPRATROPIUM 2.5MG/0.5MG, 3 ML NPPB ONE (00:30)
[2018-06-28] MEDS: MORPHINE SULFATE 4 MG/ML, 1ML IVPush PRN ×2 (00:30→02:46)
[2018-06-28] MEDS ORDERED: VANCOMYCIN PER PHARMACY MC PRN ×2 (01:00→04:00)
[2018-06-28] MEDS ORDERED: ACETAMINOPHEN 500 MG TABLET PO ONE (02:00)
[2018-06-28] MEDS ORDERED: ACETAMINOPHEN 500 MG TABLET ONE (02:03)
[2018-06-28] MEDS ORDERED: BISACODYL 10 MG SUPP PR PRN (04:00)
[2018-06-28] MEDS ORDERED: DOCUSATE 100 MG CAPSULE PO PRN (04:00)
[2018-06-28] MEDS ORDERED: LABETALOL 5MG/ML, 20ML IVPush PRN (04:00)
[2018-06-28] MEDS ORDERED: ONDANSETRON 2MG/ML, 2ML IVPush PRN (04:00)
[2018-06-28] MEDS ORDERED: VANCOMYCIN PMX 1GM/200ML 200 ML IV ONE (04:00)
[2018-06-28] MEDS ORDERED: ONDANSETRON ODT 4 MG PO PRN (04:00)
[2018-06-28] MEDS ORDERED: POLYETHYLENE GLYCOL 17 GM PACKET PO PRN (04:00)
[2018-06-28] MEDS ORDERED: GABAPENTIN 300 MG CAPSULE PO PRN (04:00)
[2018-06-28] MEDS: NEED HEIGHT AND WEIGHT FOR VANCO DOSING MC SCH ×2 (04:00→05:00)
[2018-06-28] MEDS ORDERED: hydrALAzine 20 MG/ML, 1ML IVPush PRN (04:00)
[2018-06-28] MEDS ORDERED: morphine SULFATE 10 MG/ML, 1ML IVPush PRN (04:00)
[2018-06-28] MEDS ORDERED: PROMETHAZINE 25 MG/ML, 1ML IM PRN (04:00)
[2018-06-28 04:20] VITALS: BP 132/84
[2018-06-28] MEDS ORDERED: PHARMACOKINETIC CONSULTATION MC ONE (05:00)
[2018-06-28] MEDS ORDERED: PHARMACOKINETIC MONITORING MC PRN (05:00)
[2018-06-28] MEDS: HEPARIN 5,000 UNITS/ML, 1ML SQ SCH ×3 (05:56→20:53)
[2018-06-28] MEDS: ERTAPENEM 1 GM in SODIUM CHLORIDE 0.9% 50 ML IV SCH (05:56)
[2018-06-28] MEDS: LEVOTHYROXINE 50 MCG TABLET PO SCH (05:57)
[2018-06-28] MEDS: ALBUTEROL SULFATE 2.5 MG/3 ML NPPB SCH ×3 (06:00→13:35)
[2018-06-28] MEDS: OXYcodone IR 5MG TABLET PO PRN ×3 (06:04→16:06)
[2018-06-28] MEDS: BUDESONIDE 0.5 MG/2 ML INHA NPPB SCH ×2 (06:41→20:31)
[2018-06-28 06:59] LABS: HCT (SEDRATE) 33.6 % (39.2-51.8)
[2018-06-28] MEDS: VANCOMYCIN 1,400 MG in SODIUM CHLORIDE 0.9% 250 ML IV SCH (07:00)
[2018-06-28 07:15] VITALS: BP 127/71
[2018-06-28 07:20] LABS: C-REACTIVE PROTEIN, QUANT 4.9 mg/dL (0.02-0.49); FREE T4 (FREE THYROXINE) 0.72 ng/dL (0.76-1.46); THYROID STIMULATING HORMONE 35.6 mIU/L (0.358-3.740)
[2018-06-28 07:34] LABS: HEMOGLOBIN A1C 6.8 % (4.2-6.3)
[2018-06-28] MEDS ORDERED: FLUTICASONE/VILANTEROL 100-25MCG/INH INH SCH (09:00)
[2018-06-28] MEDS ORDERED: OMNIPAQUE 350 MG/ML, 75ML BOTTLE ONE (10:24)
[2018-06-28 13:20] VITALS: BP 143/70
[2018-06-28 19:26] VITALS: BP 161/83
[2018-06-28] MEDS: ALBUTEROL SULFATE 2.5 MG/3 ML NPPB PRN (20:30)
[2018-06-28] MEDS: GUAIFENESIN ER 600 MG TABLET PO SCH (20:53)
[2018-06-29] MEDS: VANCOMYCIN 1,400 MG in SODIUM CHLORIDE 0.9% 250 ML IV SCH (01:15)
[2018-06-29 01:24] VITALS: BP 149/71
[2018-06-29 05:18] LABS: BASOPHILS # (AUTO) 0.11 x10^3/uL (0-0.1); BASOPHILS % (AUTO) 1 % (0-1); EOSINOPHILS % (AUTO) 0 % (1-7); LYMPHOCYTES # (AUTO) 0.95 x10^3/uL (1-3.4); LYMPHOCYTES % (AUTO) 7 % (22-44); MD NO; MEAN CORPUSCULAR HEMOGLOBIN 28.9 pg (27.5-34.5); MEAN CORPUSCULAR HGB CONC 32.4 g/dL (33.2-36.2); MEAN CORPUSCULAR VOLUME 89.3 fL (81-97); MEAN PLATELET VOLUME 7.6 fL (7.4-10.4); MONOCYTES # (AUTO) 0.67 x10^3/uL (0.2-0.8); MONOCYTES % (AUTO) 5 % (2-9); NEUTROPHILS % (AUTO) 87 % (42-75); PLATELET COUNT 271 x10^3/uL (130-400); RED BLOOD COUNT 3.81 x10^6/uL (4.38-5.82); RED CELL DISTRIBUTION WIDTH 16.5 % (9.4-14.8)
[2018-06-29] MEDS: HEPARIN 5,000 UNITS/ML, 1ML SQ SCH ×3 (05:18→22:09)
[2018-06-29] MEDS: ERTAPENEM 1 GM in SODIUM CHLORIDE 0.9% 50 ML IV SCH (05:18)
[2018-06-29] MEDS: LEVOTHYROXINE 50 MCG TABLET PO SCH (05:18)
[2018-06-29 05:30] LABS: ALANINE AMINOTRANSFERASE 22 U/L (12-78); ALBUMIN 2.6 g/dL (3.4-5.0); ANION GAP 8 mmol/L (5-15); CALCIUM 8.3 mg/dL (8.5-10.1); CHLORIDE 108 mmol/L (98-107)
[2018-06-29 05:33] LABS: ALKALINE PHOSPHATASE 145 U/L (45-117); BILIRUBIN,TOTAL 0.3 mg/dL (0.2-1.0); CHOL/HDL RATIO 2.8; CHOLESTEROL, TOTAL 113 mg/dL (140-239); CREATININE 1.06 mg/dL (0.7-1.3); HDL CHOL % 36 % (26-37); HDL CHOLESTEROL (DIRECT) 41 mg/dL (40-60); LDL CHOLESTEROL,CALCULATED 49 mg/dL (54-169); LDL/HDL RATIO 1.2 (0.5-3.0); TOTAL PROTEIN 7.1 g/dL (6.4-8.2); TRIGLYCERIDES 115 mg/dL (50-200); VLDL CHOLESTEROL 23 mg/dL (0-25)
[2018-06-29 08:00] VITALS: BP 139/78
[2018-06-29] MEDS: GUAIFENESIN ER 600 MG TABLET PO SCH ×2 (09:17→19:49)
[2018-06-29] MEDS: BUDESONIDE 0.5 MG/2 ML INHA NPPB SCH ×2 (10:33→20:02)
[2018-06-29] MEDS ORDERED: CEFTRIAXONE PMX 1GM/50ML 50 ML IV SCH (11:00)
[2018-06-29] MEDS: DOXYCYCLINE 100 MG in DEXTROSE 5% 250 ML IV SCH (12:37)
[2018-06-29 14:00] VITALS: BP 171/81
[2018-06-29 19:41] VITALS: BP 169/89
[2018-06-30] MEDS: DOXYCYCLINE 100 MG in DEXTROSE 5% 250 ML IV SCH (00:05)
[2018-06-30] MEDS: ALBUTEROL SULFATE 2.5 MG/3 ML NPPB PRN ×3 (00:28→19:53)
[2018-06-30 01:48] VITALS: BP 150/73
[2018-06-30 04:47] LABS: BASOPHILS # (AUTO) 0.03 x10^3/uL (0-0.1); BASOPHILS % (AUTO) 0 % (0-1); EOSINOPHILS # (AUTO) 0.01 x10^3/uL (0-0.4); EOSINOPHILS % (AUTO) 0 % (1-7); LYMPHOCYTES # (AUTO) 1.19 x10^3/uL (1-3.4); LYMPHOCYTES % (AUTO) 8 % (22-44); MD NO; MEAN CORPUSCULAR HEMOGLOBIN 29.1 pg (27.5-34.5); MEAN CORPUSCULAR HGB CONC 32.5 g/dL (33.2-36.2); MEAN CORPUSCULAR VOLUME 89.5 fL (81-97); MEAN PLATELET VOLUME 7.2 fL (7.4-10.4); MONOCYTES # (AUTO) 0.87 x10^3/uL (0.2-0.8); MONOCYTES % (AUTO) 6 % (2-9); NEUTROPHILS # (AUTO) 12.82 x10^3/uL (1.8-6.8); NEUTROPHILS % (AUTO) 86 % (42-75); PLATELET COUNT 284 x10^3/uL (130-400); RED BLOOD COUNT 3.85 x10^6/uL (4.38-5.82); RED CELL DISTRIBUTION WIDTH 16.5 % (9.4-14.8)
[2018-06-30 05:00] LABS: ANION GAP 8 mmol/L (5-15); CALCIUM 8.3 mg/dL (8.5-10.1); CHLORIDE 104 mmol/L (98-107)
[2018-06-30 05:03] LABS: CREATININE 1.07 mg/dL (0.7-1.3)
[2018-06-30] MEDS: LEVOTHYROXINE 50 MCG TABLET PO SCH (06:10)
[2018-06-30] MEDS: HEPARIN 5,000 UNITS/ML, 1ML SQ SCH ×3 (06:11→20:21)
[2018-06-30 07:00] VITALS: BP 175/94
[2018-06-30] MEDS: BUDESONIDE 0.5 MG/2 ML INHA NPPB SCH ×2 (08:44→19:53)
[2018-06-30] MEDS ORDERED: PRED20TA PO (09:07)
[2018-06-30] MEDS ORDERED: DOXY100T PO (09:07)
[2018-06-30] MEDS ORDERED: CEFD300C37 PO (09:07)
[2018-06-30] MEDS: GUAIFENESIN ER 600 MG TABLET PO SCH ×2 (09:14→20:17)
[2018-06-30] MEDS: KETOROLAC 30 MG/1 ML IM PRN ×2 (12:47→20:19)
[2018-06-30 14:53] VITALS: BP 157/86
[2018-06-30 20:12] VITALS: BP 148/78
[2018-06-30] MEDS: DOXYCYCLINE 100MG CAP PO SCH (20:17)
[2018-06-30] MEDS: CEFDINIR 300 MG CAPSULE PO SCH (20:17)
[2018-06-30] MEDS: ACETAMINOPHEN 325 MG TABLET PO PRN (20:18)
[2018-07-01 03:13] VITALS: BP 167/86
[2018-07-01] MEDS: KETOROLAC 30 MG/1 ML IM PRN (03:17)
[2018-07-01] MEDS: ACETAMINOPHEN 325 MG TABLET PO PRN (03:17)
[2018-07-01] MEDS: ALBUTEROL SULFATE 2.5 MG/3 ML NPPB PRN (04:12)
[2018-07-01] MEDS: LEVOTHYROXINE 50 MCG TABLET PO SCH (04:58)
[2018-07-01] MEDS: HEPARIN 5,000 UNITS/ML, 1ML SQ SCH (05:38)
[2018-07-01] MEDS: BUDESONIDE 0.5 MG/2 ML INHA NPPB SCH (06:40)
[2018-07-01 06:49] VITALS: BP 163/89
[2018-07-01] MEDS: DOXYCYCLINE 100MG CAP PO SCH (07:47)
[2018-07-01] MEDS: GUAIFENESIN ER 600 MG TABLET PO SCH (07:48)
[2018-07-01] MEDS: CEFDINIR 300 MG CAPSULE PO SCH (07:48)
== END 2018-07-01 10:41 | disposition home or self-care (01) | DRG 872 ==
LOC: ED 23:43 → EDIP 06-28 01:45 → 4NOR 06-28 03:03
PROVIDERS: ADMIT Internal Medicine; ATTEND Internal Medicine
DX: A41.9 Sepsis, unspecified organism (principal); L03.116 Cellulitis of left lower limb; E44.0 Moderate protein-calorie malnutrition; R65.20 Severe sepsis without septic shock; D64.9 Anemia, unspecified; E03.9 Hypothyroidism, unspecified; E11.9 Type 2 diabetes mellitus without complications; E78.5 Hyperlipidemia, unspecified; I10 Essential (primary) hypertension; J43.9 Emphysema, unspecified; J40 Bronchitis, not specified as acute or chronic; T38.0X5A Adverse effect of glucocorticoids and synthetic analogues, initial encounter; Y92.89 Other specified places as the place of occurrence of the external cause; Z86.73 Personal history of transient ischemic attack (TIA), and cerebral infarction without residual deficits; Z87.891 Personal history of nicotine dependence; Z91.19 Patient's noncompliance with other medical treatment and regimen; Z88.0 Allergy status to penicillin; Z68.24 Body mass index [BMI] 24.0-24.9, adult
CPT/HCPCS: 36415; 71045; 71260; 80048; 80053; 80061; 82040; 82962; 83036; 83605; 83735; 84439; 84443; 85025; 85651; 86140; 87040; 87070; 87205; 94640; 96365; 96375; G0378; J0696; J1335; J1644; J1885; J1956; J3370; J7060; J7613; J7620; J7626; Q9967; J7050; J7512

== ENCOUNTER 2018-09-14 11:13 | Emergency (ER) | payer MEDICARE ==
[~2018-09-14] VITALS: Ht 180.3 cm; Wt 73.0 kg
[~2018-09-14 11:13] MED LIST changes: +ALBU18HF INH; +ALBU2.5V NPPB; +DOXY100T PO; +SENN-177 PO; -SENN1TAB8 PO
[2018-09-14 11:58] VITALS: BP 129/79
--- NOTE | 2018-09-14 11:59 | NUR ---
pt to ed for fatigue. pt states "couldn't keep my eyes open while sitting at [employer] today." md to bedside for assessment. awaiting orders at this time. connected to all monitoers. vss. no needs at this time.
[2018-09-14] MEDS ORDERED: ALBUTEROL/IPRATROPIUM 2.5MG/0.5MG, 3 ML NPPB ONE (12:00)
--- NOTE | 2018-09-14 12:04 | NUR ---
lab and xray at bedside
[2018-09-14 12:18] LABS: BASOPHILS # (AUTO) 0.03 x10^3/uL (0-0.1); BASOPHILS % (AUTO) 0 % (0-1); EOSINOPHILS # (AUTO) 0.27 x10^3/uL (0-0.4); EOSINOPHILS % (AUTO) 2 % (1-7); LYMPHOCYTES # (AUTO) 1.22 x10^3/uL (1-3.4); LYMPHOCYTES % (AUTO) 10 % (22-44); MD NO; MEAN CORPUSCULAR HEMOGLOBIN 27.5 pg (27.5-34.5); MEAN CORPUSCULAR HGB CONC 31.9 g/dL (33.2-36.2); MEAN CORPUSCULAR VOLUME 86.2 fL (81-97); MEAN PLATELET VOLUME 7.1 fL (7.4-10.4); MONOCYTES # (AUTO) 1.36 x10^3/uL (0.2-0.8); MONOCYTES % (AUTO) 12 % (2-9); NEUTROPHILS # (AUTO) 8.98 x10^3/uL (1.8-6.8); NEUTROPHILS % (AUTO) 76 % (42-75); PLATELET COUNT 266 x10^3/uL (130-400); RED BLOOD COUNT 4.38 x10^6/uL (4.38-5.82); RED CELL DISTRIBUTION WIDTH 17.7 % (9.4-14.8)
[2018-09-14] MEDS ORDERED: ALBUTEROL/IPRATROPIUM 2.5MG/0.5MG, 3 ML ONE (12:23)
--- NOTE | 2018-09-14 12:27 | NUR ---
rt to bedside for tx.
[2018-09-14 12:30] LABS: ALANINE AMINOTRANSFERASE 28 U/L (12-78); ALBUMIN 2.4 g/dL (3.4-5.0); ANION GAP 6 mmol/L (5-15); CALCIUM 7.6 mg/dL (8.5-10.1); CHLORIDE 107 mmol/L (98-107); CREATININE 0.91 mg/dL (0.7-1.3)
[2018-09-14 12:35] LABS: ALKALINE PHOSPHATASE 166 U/L (45-117); BILIRUBIN,TOTAL 0.3 mg/dL (0.2-1.0); TOTAL PROTEIN 6.7 g/dL (6.4-8.2); TROPONIN I < 0.015 ng/mL (0.000-0.045)
== END 2018-09-14 13:40 | disposition home or self-care (01) ==
LOC: ED 12:10
DX: J43.9 Emphysema, unspecified (principal); E11.9 Type 2 diabetes mellitus without complications; I11.0 Hypertensive heart disease with heart failure; I50.9 Heart failure, unspecified; I48.91 Unspecified atrial fibrillation; Z86.73 Personal history of transient ischemic attack (TIA), and cerebral infarction without residual deficits; Z72.9 Problem related to lifestyle, unspecified
CPT/HCPCS: 36415; 71045; 80053; 84484; 85025; 93005; 94640; 99284; J7512; J7620

== ENCOUNTER 2019-03-02 21:28 | Emergency (ER) | payer MEDICARE ==
[~2019-03-02] VITALS: Ht 180.3 cm; Wt 75.0 kg
[2019-03-03 01:37] VITALS: BP 130/65
== END 2019-03-03 01:41 | disposition home or self-care (01) ==
LOC: ED 23:59
DX: G89.29 Other chronic pain (principal); M54.2 Cervicalgia; R42 Dizziness and giddiness; R07.9 Chest pain, unspecified; R05 Cough; I11.0 Hypertensive heart disease with heart failure; I50.9 Heart failure, unspecified; E11.9 Type 2 diabetes mellitus without complications; E07.9 Disorder of thyroid, unspecified; I48.91 Unspecified atrial fibrillation; Z72.9 Problem related to lifestyle, unspecified; Z86.73 Personal history of transient ischemic attack (TIA), and cerebral infarction without residual deficits; Z87.891 Personal history of nicotine dependence
CPT/HCPCS: 36415; 80048; 82040; 84484; 85025; 99283

== ENCOUNTER 2019-05-11 09:41 | Outpatient (CLI) | payer MEDICARE | END 2019-05-11 23:59 | disposition home or self-care (01) | LOC: WOUND 09:41 | PROVIDERS: ATTEND Internal Medicine | DX: E11.622 Type 2 diabetes mellitus with other skin ulcer (principal); L97.222 Non-pressure chronic ulcer of left calf with fat layer exposed; I10 Essential (primary) hypertension; E78.5 Hyperlipidemia, unspecified; E03.9 Hypothyroidism, unspecified; Z86.73 Personal history of transient ischemic attack (TIA), and cerebral infarction without residual deficits; J44.9 Chronic obstructive pulmonary disease, unspecified; B19.20 Unspecified viral hepatitis C without hepatic coma; Z87.891 Personal history of nicotine dependence | CPT/HCPCS: 97597; 97598; G0463 ==

== ENCOUNTER 2019-08-03 16:35 | Emergency (ER) | payer MEDICARE ==
[~2019-08-03] VITALS: Ht 180.3 cm; Wt 79.5 kg
[2019-08-03 16:42] VITALS: BP 107/62
[2019-08-03 17:10] LABS: BASOPHILS # (AUTO) 0.06 x10^3/uL (0-0.1); BASOPHILS % (AUTO) 1 % (0-1); EOSINOPHILS # (AUTO) 0.44 x10^3/uL (0-0.4); EOSINOPHILS % (AUTO) 4 % (1-7); LYMPHOCYTES # (AUTO) 1.92 x10^3/uL (1-3.4); LYMPHOCYTES % (AUTO) 17 % (22-44); MD NO; MEAN CORPUSCULAR HEMOGLOBIN 28.5 pg (27.5-34.5); MEAN CORPUSCULAR HGB CONC 32.4 g/dL (33.2-36.2); MEAN CORPUSCULAR VOLUME 87.9 fL (81-97); MONOCYTES # (AUTO) 1.12 x10^3/uL (0.2-0.8); MONOCYTES % (AUTO) 10 % (2-9); NEUTROPHILS # (AUTO) 8.06 x10^3/uL (1.8-6.8); NEUTROPHILS % (AUTO) 70 % (42-75); PLATELET COUNT 346 x10^3/uL (130-400); RED CELL DISTRIBUTION WIDTH 16.5 % (9.4-14.8)
[2019-08-03 17:21] LABS: ALBUMIN 3.8 g/dL (3.4-5.0); ANION GAP 7 mmol/L (5-15); CALCIUM 9.5 mg/dL (8.5-10.1); CHLORIDE 107 mmol/L (98-107)
[2019-08-03 17:24] LABS: ALANINE AMINOTRANSFERASE 35 U/L (12-78); ALKALINE PHOSPHATASE 200 U/L (45-117); BILIRUBIN,TOTAL 0.5 mg/dL (0.2-1.0); CREATININE 1.35 mg/dL (0.7-1.3); TOTAL PROTEIN 8.7 g/dL (6.4-8.2)
[2019-08-03] MEDS ORDERED: CEPHALEXIN 500 MG CAPSULE PO ONE (19:30)
[2019-08-03] MEDS ORDERED: CEPHALEXIN 500 MG CAPSULE ONE (19:32)
[2019-08-03] MEDS ORDERED: NEOSPORIN OINT. PKT 1 PACKET ONE (19:32)
== END 2019-08-03 19:56 | disposition home or self-care (01) ==
LOC: ED 19:35
DX: L03.116 Cellulitis of left lower limb (principal); I10 Essential (primary) hypertension; I48.91 Unspecified atrial fibrillation; J43.9 Emphysema, unspecified; Z86.39 Personal history of other endocrine, nutritional and metabolic disease
CPT/HCPCS: 36415; 80053; 85025; 87040; 99283

== ENCOUNTER 2019-08-18 13:43 | Emergency (ER) | payer MEDICARE ==
[~2019-08-18] VITALS: Ht 180.3 cm; Wt 75.0 kg
--- NOTE | 2019-08-18 13:58 | NUR ---
BIB EMS [facility], PT C/O PAIN AT LISA SITE OF HEAD LAC. (LISA PLACED 08/17 2/ HEAD TRAUMA) PT C/O COUGH X 1 WEEK AND EPIGASTRIC PAIN WHEN COUGHING. MASK PLACED ON PT AND MONITORS BP, SP02 IN PLACE. CALL LIGHT W/I REACH. PROVIDER EVAL PENDING
[2019-08-18] MEDS ORDERED: LORazepam 1MG TABLET PO ONE (14:30)
[2019-08-18] MEDS ORDERED: LORazepam 1MG TABLET ONE (14:48)
[2019-08-18 14:59] VITALS: BP 139/73
--- NOTE | 2019-08-18 15:02 | NUR ---
LUNCH RN: PT SLEEPING IN ROOM, VSS. BEJARANO. PT EASILY AROUSABLE TO VERBAL STIMULI. AWAITING CT AT THIS TIME. CALL LIGHT WITHIN REACH.
--- NOTE | 2019-08-18 15:12 | NUR ---
LUNCH RN: PT TAKEN TO CT
[2019-08-18] MEDS ORDERED: L.E.T SOLUTION TP ONE ×2 (16:00→16:21)
--- NOTE | 2019-08-18 17:19 | NUR ---
Patient/Caregiver given discharge instructions and they have confirmed that they understand the instructions. PATIENT REFUSED TEACHING FOR INCENTIVE SPIROMETER. VERBALIZED, "YOU THINK THIS IS MY FIRST FUCKING RODEO" SECURITY CALLED TO ASSIST PT OUT OF THE ED. Patient ambulatory with steady gait.
[2019-08-19] MEDS ORDERED: OMEP-110 PO (08:59)
[2019-08-19] MEDS ORDERED: TRAZ50TA66 PO (08:59)
[2019-08-19] MEDS ORDERED: LISI-167 PO (08:59)
== END 2019-08-18 17:55 | disposition home or self-care (01) ==
LOC: ED 14:56
DX: S09.90XA Unspecified injury of head, initial encounter (principal); J42 Unspecified chronic bronchitis; I10 Essential (primary) hypertension; E11.9 Type 2 diabetes mellitus without complications; X58.XXXA Exposure to other specified factors, initial encounter; Y93.89 Activity, other specified; Y92.89 Other specified places as the place of occurrence of the external cause; Y99.8 Other external cause status
CPT/HCPCS: 70450; 71045; 99284

== ENCOUNTER 2019-08-19 07:17 | Emergency (ER) | payer MEDICARE ==
[~2019-08-19] VITALS: Ht 180.3 cm; Wt 77.0 kg
--- NOTE | 2019-08-19 07:52 | NUR ---
assumed care of pt. pt here c/o productive cough that makes his chest hurt for a few days. pt is coughing intermittently, but not coughing anything up. speaking full sentences without difficulty. no respiratory distress. no family at bedside. lab has been to bedside to draw, EKG at bedside
[2019-08-19 08:10] LABS: INTERNATIONAL NORMALIZED RATIO 0.92 (0.93-1.1); PROTHROMBIN TIME 9.7 Seconds (9.6-11.5)
--- NOTE | 2019-08-19 08:23 | NUR ---
pt placed on equipment monitor phototypesetting. lab at bedside for additional draw
[2019-08-19] MEDS ORDERED: ALBUTEROL SULFATE 2.5 MG/3 ML NPPB ONE (08:30)
[2019-08-19] MEDS ORDERED: SODIUM CHLORIDE FLUSH 10ML SYR IVF ONE (08:30)
[2019-08-19] MEDS ORDERED: IPRATROPIUM 0.5 MG/2.5 ML INHA NPPB ONE (08:30)
--- NOTE | 2019-08-19 08:41 | NUR ---
lab at bedside again for redraw
[2019-08-19 08:46] LABS: BASOPHILS # (AUTO) 0.07 x10^3/uL (0-0.1); BASOPHILS % (AUTO) 1 % (0-1); EOSINOPHILS # (AUTO) 0.46 x10^3/uL (0-0.4); EOSINOPHILS % (AUTO) 5 % (1-7); LYMPHOCYTES # (AUTO) 1.12 x10^3/uL (1-3.4); LYMPHOCYTES % (AUTO) 12 % (22-44); MD NO; MEAN CORPUSCULAR HGB CONC 32.7 g/dL (33.2-36.2); MEAN CORPUSCULAR VOLUME 88.7 fL (81-97); MEAN PLATELET VOLUME 7.3 fL (7.4-10.4); MONOCYTES # (AUTO) 1.26 x10^3/uL (0.2-0.8); MONOCYTES % (AUTO) 13 % (2-9); NEUTROPHILS # (AUTO) 6.54 x10^3/uL (1.8-6.8); NEUTROPHILS % (AUTO) 69 % (42-75); PLATELET COUNT 284 x10^3/uL (130-400); RED CELL DISTRIBUTION WIDTH 17.3 % (9.4-14.8)
--- NOTE | 2019-08-19 08:48 | NUR ---
CXR has been to bedside
[2019-08-19 08:53] LABS: ALANINE AMINOTRANSFERASE 36 U/L (12-78); ALBUMIN 3.3 g/dL (3.4-5.0); ANION GAP 5 mmol/L (5-15); CALCIUM 8.5 mg/dL (8.5-10.1); CHLORIDE 112 mmol/L (98-107)
[2019-08-19 08:57] LABS: ALKALINE PHOSPHATASE 168 U/L (45-117); BILIRUBIN,TOTAL 0.5 mg/dL (0.2-1.0); TOTAL PROTEIN 7.8 g/dL (6.4-8.2); TROPONIN I < 0.015 ng/mL (0.000-0.045)
[2019-08-19] MEDS ORDERED: ALBUTEROL/IPRATROPIUM 2.5MG/0.5MG, 3 ML ONE (08:57)
[2019-08-19] MEDS ORDERED: OMEP-110 PO (08:59)
[2019-08-19] MEDS ORDERED: TRAZ50TA66 PO (08:59)
[2019-08-19] MEDS ORDERED: LISI-167 PO (08:59)
--- NOTE | 2019-08-19 09:00 | NUR ---
RT at bedside for breathing tx. med rec completed
--- NOTE | 2019-08-19 09:12 | NUR ---
pt reports minimal improvement after breathing tx
--- NOTE | 2019-08-19 09:27 | NUR ---
pt positioning lights dimmed and warm blankets given for comfort. no family at bedside. awatiting test results. updated on POC
--- NOTE | 2019-08-19 09:50 | NUR ---
Dr Zarate at bedside for recheck
--- NOTE | 2019-08-19 10:24 | NUR ---
PO snacks fluids and cab voucher given per pt request. pt to be D/C
--- NOTE | 2019-08-19 10:35 | NUR ---
attempted to enter room to complete D/C, pt in BR
[2019-08-19 11:17] VITALS: BP 140/79
== END 2019-08-19 11:21 | disposition home or self-care (01) ==
LOC: ED 10:40
DX: J45.41 Moderate persistent asthma with (acute) exacerbation (principal); J00 Acute nasopharyngitis [common cold]; E11.9 Type 2 diabetes mellitus without complications; I48.91 Unspecified atrial fibrillation; I11.0 Hypertensive heart disease with heart failure; I50.9 Heart failure, unspecified; Z86.73 Personal history of transient ischemic attack (TIA), and cerebral infarction without residual deficits; Z87.891 Personal history of nicotine dependence
CPT/HCPCS: 36415; 71045; 80053; 83605; 83880; 84484; 85025; 85610; 93005; 99284; J7512; J7613; J7644

== ENCOUNTER 2019-08-20 18:07 | Emergency (ER) | payer MEDICARE ==
[~2019-08-20] VITALS: Ht 180.3 cm; Wt 78.2 kg
[~2019-08-20 18:07] MED LIST changes: +LISI-167 PO; +OMEP-110 PO; +TRAZ50TA66 PO
[2019-08-20 18:10] VITALS: BP 140/74
--- NOTE | 2019-08-20 18:42 | NUR ---
PT HERE WITH C/O COUGH, SEEN DAILY X 3 DAYS. PT STATES HE WANTS TO BE ADMITTED BUT REFUSES BREATHING TX.
[2019-08-20] MEDS ORDERED: DEXAMETHASONE 4 MG TABLET PO ONE (19:00)
[2019-08-20] MEDS ORDERED: ALBUTEROL/IPRATROPIUM 2.5MG/0.5MG, 3 ML NPPB ONE (19:00)
--- NOTE | 2019-08-20 19:00 | NUR ---
EKG COMPLETED. RT AT BEDSIDE.
[2019-08-20] MEDS ORDERED: DEXAMETHASONE 4 MG TABLET ONE ×3 (19:03)
--- NOTE | 2019-08-20 19:05 | NUR ---
PT MEDICATED PER ORDERS.
[2019-08-20] MEDS ORDERED: ALBUTEROL/IPRATROPIUM 2.5MG/0.5MG, 3 ML ONE (19:07)
--- NOTE | 2019-08-20 19:31 | NUR ---
Patient/Caregiver given discharge instructions and they have confirmed that they understand the instructions. Patient ambulatory with steady gait.
== END 2019-08-20 19:44 | disposition home or self-care (01) ==
LOC: ED 18:42
DX: J45.41 Moderate persistent asthma with (acute) exacerbation (principal); B34.9 Viral infection, unspecified; I11.0 Hypertensive heart disease with heart failure; I50.9 Heart failure, unspecified; E11.9 Type 2 diabetes mellitus without complications; I48.91 Unspecified atrial fibrillation; J44.9 Chronic obstructive pulmonary disease, unspecified; F17.200 Nicotine dependence, unspecified, uncomplicated; Z87.01 Personal history of pneumonia (recurrent); Z86.73 Personal history of transient ischemic attack (TIA), and cerebral infarction without residual deficits; Z86.19 Personal history of other infectious and parasitic diseases
CPT/HCPCS: 93005; 94640; 99283; J7620

== ENCOUNTER 2019-09-26 06:09 | Emergency (ER) | payer MEDICARE ==
[~2019-09-26] VITALS: Ht 177.8 cm; Wt 80.0 kg
[2019-09-26 06:10] VITALS: BP 115/80
--- NOTE | 2019-09-26 06:15 | NUR ---
ASSESSMENT MADE. ERP AT BEDSIDE.
--- NOTE | 2019-09-26 06:20 | NUR ---
PATIENT DISCHARGED WITH INSTRUCTION. UPSET AND WALKED OUT.
== END 2019-09-26 06:23 | disposition home or self-care (01) ==
LOC: ED 06:15
DX: L30.9 Dermatitis, unspecified (principal); I11.0 Hypertensive heart disease with heart failure; I50.9 Heart failure, unspecified; E11.9 Type 2 diabetes mellitus without complications; I48.91 Unspecified atrial fibrillation; Z86.73 Personal history of transient ischemic attack (TIA), and cerebral infarction without residual deficits; J44.9 Chronic obstructive pulmonary disease, unspecified; Z87.891 Personal history of nicotine dependence
CPT/HCPCS: 99283

== ENCOUNTER 2019-10-03 13:53 | Emergency (ER) | payer MEDICARE ==
[~2019-10-03] VITALS: Ht 180.3 cm; Wt 75.0 kg
[2019-10-03] MEDS ORDERED: SODIUM CHLORIDE FLUSH 10ML SYR IVF ONE (14:00)
[2019-10-03] MEDS ORDERED: SODIUM CHLORIDE 0.9% 1,000ML IVBOLUS ONE (14:00)
[2019-10-03] MEDS ORDERED: ONDANSETRON 2MG/ML, 2ML IVPush ONE (14:00)
--- NOTE | 2019-10-03 14:26 | NUR ---
THIS IS A 64 YO M BIB EMS W/ C/O PRODUCTIVE [id number], SOB, DIARRHEA SINCE THIS MORNING, N/V, ABD PAIN, AND ITCHY RASH COVERING NECK, BACK, CHEST AND ARMS. RESP EVEN AND UNLABORED. VS STABLE. PT CONVERSING IN FULL SENTENCES W/O DIFFICULTY. PT RESTING ON GURNEY W/ CALL LIGHT IN REACH. PIV STARTED, LABS DRAWN AND 1L NS BOLUS STARTED.
[2019-10-03] MEDS ORDERED: PLEASE ENTER HEIGHT AND WEIGHT MC SCH (14:30)
[2019-10-03 14:32] LABS: MEAN CORPUSCULAR HEMOGLOBIN 28.2 pg (27.5-34.5); MEAN CORPUSCULAR HGB CONC 32.6 g/dL (33.2-36.2); MEAN CORPUSCULAR VOLUME 86.5 fL (81-97); MEAN PLATELET VOLUME 7.2 fL (7.4-10.4); PLATELET COUNT 330 x10^3/uL (130-400); RED BLOOD COUNT 4.88 x10^6/uL (4.38-5.82)
[2019-10-03 14:38] LABS: ALANINE AMINOTRANSFERASE 53 U/L (12-78); ALBUMIN 3.5 g/dL (3.4-5.0); ANION GAP 6 mmol/L (5-15); CALCIUM 9.2 mg/dL (8.5-10.1); CHLORIDE 102 mmol/L (98-107); CREATININE 1.31 mg/dL (0.7-1.3)
[2019-10-03 14:40] LABS: ALKALINE PHOSPHATASE 232 U/L (45-117); BILIRUBIN,TOTAL 0.8 mg/dL (0.2-1.0); TOTAL PROTEIN 8.3 g/dL (6.4-8.2)
[2019-10-03] MEDS ORDERED: ONDANSETRON 2MG/ML, 2ML ONE (14:51)
[2019-10-03 14:55] VITALS: BP 131/62
--- NOTE | 2019-10-03 15:11 | NUR ---
PT REPORTS LT LEG PAIN, REDNESS AND SWELLING. NOTIFIED.
[2019-10-03 15:21] LABS: BASOPHILS # (AUTO) 0.03 x10^3/uL (0-0.1); BASOPHILS % (AUTO) 0 % (0-1); EOSINOPHILS # (AUTO) 0.16 x10^3/uL (0-0.4); EOSINOPHILS % (AUTO) 1 % (1-7); LYMPHOCYTES # (AUTO) 1.17 x10^3/uL (1-3.4); LYMPHOCYTES % (AUTO) 7 % (22-44); MD SCAN; MONOCYTES # (AUTO) 1.12 x10^3/uL (0.2-0.8); MONOCYTES % (AUTO) 7 % (2-9); NEUTROPHILS # (AUTO) 13.26 x10^3/uL (1.8-6.8); NEUTROPHILS % (AUTO) 84 % (42-75)
--- NOTE | 2019-10-03 15:41 | NUR ---
PT AMBULATED TO THE BR W/ A STEADY GAIT.
--- NOTE | 2019-10-03 15:49 | NUR ---
Patient given discharge instructions and they have confirmed that they understand the instructions. Patient ambulatory with steady gait.
--- NOTE | 2019-10-03 15:57 | NUR ---
PT VERBALIZED UNDERSTANDING OF DC INSTRUCTIONS. PROVIDED W/ TAXI VOUCHER TO MEN'S RETIREMENT. AMBULATED TO DC DESK W/ A STEADY GAIT.
[2019-10-03] MEDS ORDERED: MUPIROCIN OINT 2%, 22GM TP SCH (18:00)
[2019-10-19] MEDS ORDERED: QUET25TA7 PO (10:16)
[2019-10-19] MEDS ORDERED: LOPE2CAP PO (10:17)
== END 2019-10-03 15:59 | disposition home or self-care (01) ==
LOC: ED 15:10
DX: L03.116 Cellulitis of left lower limb (principal); K52.9 Noninfective gastroenteritis and colitis, unspecified; E86.0 Dehydration; E11.9 Type 2 diabetes mellitus without complications; I11.0 Hypertensive heart disease with heart failure; I50.9 Heart failure, unspecified; J43.9 Emphysema, unspecified; I48.91 Unspecified atrial fibrillation; Z86.73 Personal history of transient ischemic attack (TIA), and cerebral infarction without residual deficits; Z87.891 Personal history of nicotine dependence
CPT/HCPCS: 36415; 71045; 80053; 85025; 96361; 96374; 99284; J2405; J7030; 86900

== ENCOUNTER 2019-10-04 17:57 | Inpatient (IN) | payer MEDICARE ==
[~2019-10-04] VITALS: Ht 180.3 cm; Wt 79.1 kg
--- NOTE | 2019-10-04 18:05 | NUR ---
PT STATES DIZZINESS AND PASSED BLOOD RECTALLY TODAY. STATES THE CREAM HE GOT YESTERDAY FOR RASH AND WOUND ON LLE FROM THE ER GOT STOLEN. CONTINUES TO HAVE A COUGH, STARTED TWO DAYS AGO
[2019-10-04 18:30] LABS: BASOPHILS # (AUTO) 0.01 x10^3/uL (0-0.1); BASOPHILS % (AUTO) 0 % (0-1); EOSINOPHILS # (AUTO) 0.01 x10^3/uL (0-0.4); EOSINOPHILS % (AUTO) 0 % (1-7); LYMPHOCYTES # (AUTO) 0.98 x10^3/uL (1-3.4); LYMPHOCYTES % (AUTO) 8 % (22-44); MD NO; MEAN CORPUSCULAR HEMOGLOBIN 28.4 pg (27.5-34.5); MEAN CORPUSCULAR HGB CONC 32.8 g/dL (33.2-36.2); MEAN CORPUSCULAR VOLUME 86.5 fL (81-97); MEAN PLATELET VOLUME 7.5 fL (7.4-10.4); MONOCYTES # (AUTO) 0.98 x10^3/uL (0.2-0.8); MONOCYTES % (AUTO) 8 % (2-9); NEUTROPHILS # (AUTO) 9.75 x10^3/uL (1.8-6.8); NEUTROPHILS % (AUTO) 83 % (42-75); PLATELET COUNT 261 x10^3/uL (130-400); RED BLOOD COUNT 3.82 x10^6/uL (4.38-5.82); RED CELL DISTRIBUTION WIDTH 16.4 % (9.4-14.8)
[2019-10-04 18:38] LABS: ALBUMIN 2.8 g/dL (3.4-5.0); ANION GAP 10 mmol/L (5-15); CALCIUM 8.1 mg/dL (8.5-10.1); CHLORIDE 109 mmol/L (98-107); CREATININE 1.45 mg/dL (0.7-1.3)
[2019-10-04 19:19] LABS: INTERNATIONAL NORMALIZED RATIO 0.86 (0.93-1.1); PROTHROMBIN TIME 9.1 Seconds (9.6-11.5)
--- NOTE | 2019-10-04 19:45 | NUR ---
PT RESTING CALMLY IN BED WATCHING TV. PT UNABLE TO RECALL HIS HOME MEDS AT THIS TIME. STATED HE, "TAKES 3 PILLS, A BLOOD PRESSURE ONE AND 2 OTHERS". UNABLE TO UPDATE MED REQ AT THIS TIME. CALL LIGHT WITHIN REACH. WILL CONTINUE TO MONITOR. PT AWARE HE WILL BE ADMITTED TO HOSPITAL. AWAITING ROOM ASSIGNMENT.
--- NOTE | 2019-10-04 21:27 | NUR ---
PT TO US VIA TrelliseJACQUI AT THIS TIME.
[2019-10-04] MEDS ORDERED: ONDANSETRON 2MG/ML, 2ML IVPush PRN (21:30)
[2019-10-04] MEDS ORDERED: PHARMACY MAY ADJ FOR RENAL FX MC PRN (21:30)
[2019-10-04] MEDS ORDERED: GLUCAGON 1 MG IM PRN (21:30)
[2019-10-04] MEDS ORDERED: DEXTROSE 4 GM TAB.CHEW PO PRN (21:30)
[2019-10-04] MEDS ORDERED: PROMETHAZINE 25 MG/ML, 1ML IM PRN (21:30)
[2019-10-04] MEDS ORDERED: CEFAZOLIN 2,000 MG in SODIUM CHLORIDE 0.9% 50 ML IV SCH (21:30)
[2019-10-04] MEDS ORDERED: DEXTROSE 50%, 50ML SYRINGE IVPush PRN (21:30)
[2019-10-04] MEDS ORDERED: CEFAZOLIN PMX 1GM/50ML 50 ML ONE (22:17)
[2019-10-04] MEDS ORDERED: PANTOPRAZOLE 40 MG IV ONE (22:18)
[2019-10-04] MEDS: PANTOPRAZOLE 40 MG IV IVPush SCH (22:22)
[2019-10-04] MEDS: D5%-0.45NACL+KCL 20MEQ 1,000 ML IV SCH (22:22)
[2019-10-04] MEDS: TRAZODONE 50MG TABLET PO PRN (23:31)
[2019-10-04] MEDS: morphine SULFATE 10 MG/ML, 1ML IVPush PRN (23:32)
[2019-10-04 23:39] VITALS: BP 156/78
[2019-10-05 00:18] VITALS: BP 150/78
[2019-10-05] MEDS: CEFAZOLIN PMX 2GM/50ML 50 ML IVPB SCH ×3 (00:51→19:35)
[2019-10-05] MEDS: morphine SULFATE 10 MG/ML, 1ML IVPush PRN (04:00)
[2019-10-05] MEDS: OXYcodone IR 5MG TABLET PO PRN ×4 (04:25→23:14)
[2019-10-05] MEDS: INSULIN LISPRO 100 UNITS/ML, PEN SQ-INSULIN SCH ×4 (07:00→20:52)
[2019-10-05 07:12] VITALS: BP 123/71
[2019-10-05 08:01] LABS: BASOPHILS # (AUTO) 0.06 x10^3/uL (0-0.1); BASOPHILS % (AUTO) 1 % (0-1); EOSINOPHILS # (AUTO) 0.14 x10^3/uL (0-0.4); EOSINOPHILS % (AUTO) 1 % (1-7); LYMPHOCYTES # (AUTO) 1.15 x10^3/uL (1-3.4); LYMPHOCYTES % (AUTO) 12 % (22-44); MD NO; MEAN CORPUSCULAR HEMOGLOBIN 28.5 pg (27.5-34.5); MEAN CORPUSCULAR HGB CONC 32.2 g/dL (33.2-36.2); MEAN CORPUSCULAR VOLUME 88.4 fL (81-97); MONOCYTES # (AUTO) 0.82 x10^3/uL (0.2-0.8); MONOCYTES % (AUTO) 8 % (2-9); NEUTROPHILS # (AUTO) 7.56 x10^3/uL (1.8-6.8); NEUTROPHILS % (AUTO) 78 % (42-75); PLATELET COUNT 240 x10^3/uL (130-400); RED BLOOD COUNT 4.22 x10^6/uL (4.38-5.82); RED CELL DISTRIBUTION WIDTH 16.8 % (9.4-14.8)
[2019-10-05 08:09] LABS: ALANINE AMINOTRANSFERASE 31 U/L (12-78); ALBUMIN 2.7 g/dL (3.4-5.0); CALCIUM 7.9 mg/dL (8.5-10.1); CREATININE 1.09 mg/dL (0.7-1.3)
[2019-10-05 08:19] LABS: ALKALINE PHOSPHATASE 169 U/L (45-117); BILIRUBIN,TOTAL 0.2 mg/dL (0.2-1.0); TOTAL PROTEIN 6.6 g/dL (6.4-8.2)
[2019-10-05 08:21] LABS: ANION GAP 8 mmol/L (5-15); CHLORIDE 116 mmol/L (98-107)
[2019-10-05] MEDS: AZITHROMYCIN 500 MG TABLET PO SCH (10:34)
[2019-10-05] MEDS: LISINOPRIL 10 MG TABLET PO SCH (10:35)
[2019-10-05] MEDS: LACTOBACILLUS CHEW TABLET PO SCH ×3 (10:35→20:24)
[2019-10-05] MEDS: SODIUM CHLORIDE FLUSH 10ML SYR IVF SCH ×2 (10:36→20:24)
[2019-10-05] MEDS: PANTOPRAZOLE 40 MG IV IVPush SCH ×2 (10:36→20:24)
[2019-10-05] MEDS: D5%-0.45NACL+KCL 20MEQ 1,000 ML IV SCH (12:00)
[2019-10-05] MEDS ORDERED: HYDROCORTISONE CRM 1%, 30GM TP PRN (12:30)
[2019-10-05 14:01] VITALS: BP 144/80
[2019-10-05] MEDS ORDERED: GOLYTELY 4,000ML ORAL.SOL PO ONE (18:00)
[2019-10-05 19:15] VITALS: BP 171/92
[2019-10-05 21:30] LABS: CLOSTRIDIUM DIFFICILE ANTIGEN NEGATIVE; CLOSTRIDIUM DIFFICILE TOXIN NEGATIVE (Negative)
[2019-10-05] MEDS: TRAZODONE 50MG TABLET PO PRN (23:14)
[2019-10-05 23:56] VITALS: BP 144/77
[2019-10-06] MEDS: CEFAZOLIN PMX 2GM/50ML 50 ML IVPB SCH ×3 (03:00→20:09)
[2019-10-06 06:25] LABS: BASOPHILS # (AUTO) 0.02 x10^3/uL (0-0.1); BASOPHILS % (AUTO) 0 % (0-1); EOSINOPHILS # (AUTO) 0.02 x10^3/uL (0-0.4); EOSINOPHILS % (AUTO) 0 % (1-7); LYMPHOCYTES # (AUTO) 1.21 x10^3/uL (1-3.4); LYMPHOCYTES % (AUTO) 14 % (22-44); MD NO; MEAN CORPUSCULAR HEMOGLOBIN 28.7 pg (27.5-34.5); MEAN CORPUSCULAR VOLUME 86.9 fL (81-97); MEAN PLATELET VOLUME 7.5 fL (7.4-10.4); MONOCYTES # (AUTO) 0.69 x10^3/uL (0.2-0.8); MONOCYTES % (AUTO) 8 % (2-9); NEUTROPHILS # (AUTO) 6.48 x10^3/uL (1.8-6.8); NEUTROPHILS % (AUTO) 77 % (42-75); PLATELET COUNT 240 x10^3/uL (130-400); RED BLOOD COUNT 3.59 x10^6/uL (4.38-5.82); RED CELL DISTRIBUTION WIDTH 16.5 % (9.4-14.8)
[2019-10-06 06:28] LABS: ANION GAP 5 mmol/L (5-15); CALCIUM 7.8 mg/dL (8.5-10.1); CHLORIDE 115 mmol/L (98-107)
[2019-10-06 06:30] LABS: CREATININE 0.85 mg/dL (0.7-1.3)
[2019-10-06] MEDS: INSULIN LISPRO 100 UNITS/ML, PEN SQ-INSULIN SCH ×4 (08:20→20:45)
[2019-10-06] MEDS: PANTOPRAZOLE 40 MG IV IVPush SCH ×2 (08:53→20:07)
[2019-10-06 08:57] VITALS: BP 155/74
[2019-10-06] MEDS: LEVOTHYROXINE 50 MCG TABLET PO SCH (12:06)
[2019-10-06] MEDS: LISINOPRIL 10 MG TABLET PO SCH (12:06)
[2019-10-06] MEDS: AZITHROMYCIN 500 MG TABLET PO SCH (12:06)
[2019-10-06] MEDS: LACTOBACILLUS CHEW TABLET PO SCH ×3 (12:07→20:08)
[2019-10-06] MEDS: OXYcodone IR 5MG TABLET PO PRN ×2 (12:07→20:07)
[2019-10-06] MEDS: SODIUM CHLORIDE FLUSH 10ML SYR IVF SCH ×2 (12:08→20:08)
[2019-10-06 12:50] VITALS: BP 156/80
[2019-10-06] MEDS: GUAIFENESIN/DM 100-10MG, 5ML UDC PO PRN (15:22)
[2019-10-06] MEDS: TRAZODONE 50MG TABLET PO PRN (21:34)
[2019-10-06] MEDS ORDERED: ALBUTEROL SULFATE 2.5 MG/3 ML ONE (23:08)
[2019-10-06] MEDS ORDERED: ALBUTEROL SULFATE 2.5 MG/3 ML NPPB PRN (23:30)
[2019-10-07] MEDS: CEFAZOLIN PMX 2GM/50ML 50 ML IVPB SCH ×3 (03:12→22:28)
[2019-10-07 05:08] LABS: BASOPHILS # (AUTO) 0.02 x10^3/uL (0-0.1); BASOPHILS % (AUTO) 0 % (0-1); EOSINOPHILS % (AUTO) 0 % (1-7); LYMPHOCYTES # (AUTO) 1.19 x10^3/uL (1-3.4); LYMPHOCYTES % (AUTO) 15 % (22-44); MD NO; MEAN CORPUSCULAR HEMOGLOBIN 28.7 pg (27.5-34.5); MEAN CORPUSCULAR HGB CONC 33.1 g/dL (33.2-36.2); MEAN CORPUSCULAR VOLUME 86.9 fL (81-97); MEAN PLATELET VOLUME 7.4 fL (7.4-10.4); MONOCYTES # (AUTO) 0.65 x10^3/uL (0.2-0.8); MONOCYTES % (AUTO) 8 % (2-9); NEUTROPHILS # (AUTO) 5.94 x10^3/uL (1.8-6.8); NEUTROPHILS % (AUTO) 76 % (42-75); PLATELET COUNT 229 x10^3/uL (130-400); RED CELL DISTRIBUTION WIDTH 15.8 % (9.4-14.8)
[2019-10-07 05:17] LABS: ALBUMIN 2.3 g/dL (3.4-5.0); ANION GAP 5 mmol/L (5-15); CALCIUM 7.9 mg/dL (8.5-10.1); CHLORIDE 114 mmol/L (98-107)
[2019-10-07 05:22] LABS: ALANINE AMINOTRANSFERASE 12 U/L (12-78); ALKALINE PHOSPHATASE 131 U/L (45-117); BILIRUBIN,TOTAL 0.4 mg/dL (0.2-1.0); CREATININE 0.85 mg/dL (0.7-1.3); TOTAL PROTEIN 5.8 g/dL (6.4-8.2)
[2019-10-07] MEDS: LEVOTHYROXINE 50 MCG TABLET PO SCH (05:36)
[2019-10-07] MEDS: OXYcodone IR 5MG TABLET PO PRN ×3 (05:37→22:32)
[2019-10-07] MEDS: INSULIN LISPRO 100 UNITS/ML, PEN SQ-INSULIN SCH ×2 (07:00→11:00)
[2019-10-07 07:17] VITALS: BP 152/76
[2019-10-07] MEDS ORDERED: LISINOPRIL 20 MG TABLET PO SCH (09:00)
[2019-10-07] MEDS ORDERED: MIDAZOLAM 1 MG/ML, 2ML ONE (09:20)
[2019-10-07] MEDS ORDERED: PROPOFOL 10 MG/ML, 20ML ONE ×2 (09:21)
[2019-10-07] MEDS ORDERED: PROPOFOL 10 MG/ML, 50ML ONE (10:16)
[2019-10-07] MEDS: LACTOBACILLUS CHEW TABLET PO SCH ×3 (11:50→22:31)
[2019-10-07] MEDS: PANTOPRAZOLE 40 MG IV IVPush SCH (11:50)
[2019-10-07] MEDS: AZITHROMYCIN 500 MG TABLET PO SCH (11:50)
[2019-10-07] MEDS: SODIUM CHLORIDE FLUSH 10ML SYR IVF SCH ×2 (11:51→21:00)
[2019-10-07] MEDS: CARVEDILOL 6.25 MG TABLET PO SCH ×2 (11:58→16:43)
[2019-10-07] MEDS: GUAIFENESIN/DM 100-10MG, 5ML UDC PO PRN ×2 (13:58→22:32)
[2019-10-07 14:00] VITALS: BP 162/79
[2019-10-07] MEDS: PANTOPRAZOLE 40MG TABLET PO SCH (16:44)
[2019-10-07 17:29] LABS: RAPID INFLUENZA A Negative (Negative); RAPID INFLUENZA B Negative (Negative)
[2019-10-07 21:30] VITALS: BP 167/86
[2019-10-07] MEDS: ATORVASTATIN 40 MG TABLET PO SCH (22:31)
[2019-10-07] MEDS: TRAZODONE 50MG TABLET PO PRN (22:32)
[2019-10-08 02:00] VITALS: BP 169/88
[2019-10-08] MEDS: OXYcodone IR 5MG TABLET PO PRN ×3 (04:27→18:38)
[2019-10-08] MEDS: GUAIFENESIN/DM 100-10MG, 5ML UDC PO PRN (05:25)
[2019-10-08] MEDS: PANTOPRAZOLE 40MG TABLET PO SCH ×2 (05:25→16:23)
[2019-10-08] MEDS: CARVEDILOL 6.25 MG TABLET PO SCH ×2 (05:25→16:24)
[2019-10-08] MEDS: LEVOTHYROXINE 50 MCG TABLET PO SCH (05:25)
[2019-10-08] MEDS: CEFAZOLIN PMX 2GM/50ML 50 ML IVPB SCH ×4 (05:34→22:40)
[2019-10-08 05:58] LABS: ANION GAP 6 mmol/L (5-15); CALCIUM 8.3 mg/dL (8.5-10.1); CHLORIDE 108 mmol/L (98-107); CREATININE 1.06 mg/dL (0.7-1.3)
[2019-10-08 06:04] LABS: BASOPHILS # (AUTO) 0.04 x10^3/uL (0-0.1); BASOPHILS % (AUTO) 1 % (0-1); EOSINOPHILS % (AUTO) 0 % (1-7); LYMPHOCYTES # (AUTO) 0.97 x10^3/uL (1-3.4); LYMPHOCYTES % (AUTO) 10 % (22-44); MD NO; MEAN CORPUSCULAR HEMOGLOBIN 28.5 pg (27.5-34.5); MEAN CORPUSCULAR HGB CONC 32.9 g/dL (33.2-36.2); MEAN CORPUSCULAR VOLUME 86.7 fL (81-97); MEAN PLATELET VOLUME 7.6 fL (7.4-10.4); MONOCYTES # (AUTO) 0.52 x10^3/uL (0.2-0.8); MONOCYTES % (AUTO) 5 % (2-9); NEUTROPHILS # (AUTO) 8.17 x10^3/uL (1.8-6.8); NEUTROPHILS % (AUTO) 84 % (42-75); PLATELET COUNT 267 x10^3/uL (130-400); RED BLOOD COUNT 3.85 x10^6/uL (4.38-5.82); RED CELL DISTRIBUTION WIDTH 16.2 % (9.4-14.8)
[2019-10-08] MEDS: AZITHROMYCIN 500 MG TABLET PO SCH (08:59)
[2019-10-08] MEDS: LISINOPRIL 20 MG TABLET PO SCH (08:59)
[2019-10-08] MEDS: LACTOBACILLUS CHEW TABLET PO SCH ×3 (08:59→20:39)
[2019-10-08] MEDS: SODIUM CHLORIDE FLUSH 10ML SYR IVF SCH ×2 (08:59→20:39)
[2019-10-08 09:31] VITALS: BP 181/88
[2019-10-08 10:54] VITALS: BP 161/81
[2019-10-08 14:00] VITALS: BP 164/77
[2019-10-08 20:11] VITALS: BP 187/96
[2019-10-08] MEDS: TRAZODONE 50MG TABLET PO PRN (20:39)
[2019-10-08] MEDS: ATORVASTATIN 40 MG TABLET PO SCH (20:39)
[2019-10-09 00:23] VITALS: BP 146/77
[2019-10-09] MEDS: OXYcodone IR 5MG TABLET PO PRN ×4 (01:10→23:59)
[2019-10-09] MEDS: LEVOTHYROXINE 50 MCG TABLET PO SCH (05:53)
[2019-10-09] MEDS: CEFAZOLIN PMX 2GM/50ML 50 ML IVPB SCH (05:53)
[2019-10-09] MEDS: CARVEDILOL 6.25 MG TABLET PO SCH ×2 (05:54→16:10)
[2019-10-09] MEDS: PANTOPRAZOLE 40MG TABLET PO SCH ×2 (05:54→16:10)
[2019-10-09] MEDS: LACTOBACILLUS CHEW TABLET PO SCH ×3 (09:28→20:05)
[2019-10-09] MEDS: AZITHROMYCIN 500 MG TABLET PO SCH (09:28)
[2019-10-09] MEDS: LISINOPRIL 20 MG TABLET PO SCH (09:29)
[2019-10-09] MEDS: SODIUM CHLORIDE FLUSH 10ML SYR IVF SCH ×2 (09:30→20:06)
[2019-10-09] MEDS ORDERED: PANT40TA5 PO (09:38)
[2019-10-09 13:02] VITALS: BP 168/74
[2019-10-09] MEDS: ATORVASTATIN 40 MG TABLET PO SCH (20:05)
[2019-10-09] MEDS: GUAIFENESIN/DM 100-10MG, 5ML UDC PO PRN (20:05)
[2019-10-09] MEDS: TRAZODONE 50MG TABLET PO PRN (20:05)
[2019-10-09 20:32] VITALS: BP 165/76
[2019-10-10 01:27] VITALS: BP 174/82
[2019-10-10] MEDS: PANTOPRAZOLE 40MG TABLET PO SCH ×2 (06:27→16:44)
[2019-10-10] MEDS: LEVOTHYROXINE 50 MCG TABLET PO SCH (06:27)
[2019-10-10] MEDS: CARVEDILOL 6.25 MG TABLET PO SCH (06:27)
[2019-10-10] MEDS: GUAIFENESIN/DM 100-10MG, 5ML UDC PO PRN ×2 (06:29→12:46)
[2019-10-10 07:33] VITALS: BP 185/84
[2019-10-10] MEDS: SODIUM CHLORIDE FLUSH 10ML SYR IVF SCH (07:56)
[2019-10-10] MEDS: LACTOBACILLUS CHEW TABLET PO SCH ×3 (07:56→20:42)
[2019-10-10] MEDS: LISINOPRIL 20 MG TABLET PO SCH (07:57)
[2019-10-10] MEDS ORDERED: hydrALAzine 20 MG/ML, 1ML IV PRN (08:00)
[2019-10-10] MEDS: OXYcodone IR 5MG TABLET PO PRN ×3 (09:09→22:41)
[2019-10-10 09:19] VITALS: BP 156/72
[2019-10-10 13:38] VITALS: BP 127/54
[2019-10-10] MEDS: CARVEDILOL 12.5 MG TABLET PO SCH (16:44)
[2019-10-10 19:27] VITALS: BP 132/65
[2019-10-10] MEDS: ATORVASTATIN 40 MG TABLET PO SCH (20:42)
[2019-10-11 01:27] VITALS: BP 152/68
[2019-10-11 01:55] VITALS: BP 156/72
[2019-10-11 04:05] VITALS: BP 149/70
[2019-10-11 05:54] VITALS: BP 152/81
[2019-10-11] MEDS: CARVEDILOL 12.5 MG TABLET PO SCH (05:59)
[2019-10-11] MEDS: LEVOTHYROXINE 50 MCG TABLET PO SCH (05:59)
[2019-10-11] MEDS: OXYcodone IR 5MG TABLET PO PRN (06:03)
[2019-10-11] MEDS: SODIUM CHLORIDE FLUSH 10ML SYR IVF SCH ×2 (06:04→08:22)
[2019-10-11] MEDS: PANTOPRAZOLE 40MG TABLET PO SCH (06:05)
[2019-10-11 07:28] VITALS: BP 167/83
[2019-10-11] MEDS: LISINOPRIL 20 MG TABLET PO SCH (08:20)
[2019-10-11] MEDS: LACTOBACILLUS CHEW TABLET PO SCH (08:20)
[2019-10-11] MEDS ORDERED: LEVO50TA PO (09:44)
[2019-10-11] MEDS ORDERED: AMLO-150 PO (09:44)
[2019-10-11] MEDS ORDERED: ATOR40TA78 PO (09:44)
[2019-10-11] MEDS ORDERED: LISI-170 PO (09:44)
[2019-10-11] MEDS ORDERED: BENZ100C PO (09:44)
[2019-10-11] MEDS ORDERED: ASPI81TA45 PO (09:44)
== END 2019-10-11 12:06 | disposition home or self-care (01) | DRG 377 ==
LOC: ED 19:22 → SUATTDRO 20:14 → EDIP 23:18 → 4EST 23:19 → ICU 10-07 20:51 → 3N 10-08 17:51
PROVIDERS: ADMIT Internal Medicine; ATTEND Internal Medicine Infectious Disease
PROC: 0DBN8ZZ Excision of Sigmoid Colon, Via Natural or Artificial Opening Endoscopic (ICD-10-PCS; principal; 2019-10-07 09:00)
DX: K92.1 Melena (principal); N17.0 Acute kidney failure with tubular necrosis; E43 Unspecified severe protein-calorie malnutrition; D62 Acute posthemorrhagic anemia; L03.116 Cellulitis of left lower limb; L03.115 Cellulitis of right lower limb; D68.69 Other thrombophilia; I50.32 Chronic diastolic (congestive) heart failure; D12.5 Benign neoplasm of sigmoid colon; E03.9 Hypothyroidism, unspecified; E11.21 Type 2 diabetes mellitus with diabetic nephropathy; E11.65 Type 2 diabetes mellitus with hyperglycemia; Z68.24 Body mass index [BMI] 24.0-24.9, adult; F41.9 Anxiety disorder, unspecified; I11.0 Hypertensive heart disease with heart failure; I27.20 Pulmonary hypertension, unspecified; I48.0 Paroxysmal atrial fibrillation; I69.320 Aphasia following cerebral infarction; I87.8 Other specified disorders of veins; J43.9 Emphysema, unspecified; K21.9 Gastro-esophageal reflux disease without esophagitis; T38.0X5A Adverse effect of glucocorticoids and synthetic analogues, initial encounter; Z79.82 Long term (current) use of aspirin; Z59.0 Homelessness; Z87.891 Personal history of nicotine dependence; Z91.19 Patient's noncompliance with other medical treatment and regimen; Y92.89 Other specified places as the place of occurrence of the external cause; E88.09 Other disorders of plasma-protein metabolism, not elsewhere classified; M79.10 Myalgia, unspecified site; I08.3 Combined rheumatic disorders of mitral, aortic and tricuspid valves
CPT/HCPCS: 36415; 80048; 80053; 82040; 82962; 83036; 84145; 84443; 85014; 85018; 85025; 85610; 85730; 86850; 86900; 86923; 87081; 87324; 87400; 87486; 87581; 87633; 87798; 88305; 93970; 96365; G0378; J0690; J2250; J2704; C9113; J0360; J1815; J2270; J3480; J7512; Q0177

== ENCOUNTER 2019-11-07 06:51 | Emergency (ER) | payer MEDICARE ==
[~2019-11-07] VITALS: Ht 180.3 cm; Wt 65.8 kg
[~2019-11-07 06:51] MED LIST changes: +AMLO-150 PO; +ASPI81TA45 PO; +ATOR40TA78 PO; +BENZ100C PO; +LISI-170 PO; +LOPE2CAP PO; +PANT40TA5 PO; +QUET25TA7 PO
--- NOTE | 2019-11-07 07:05 | NUR ---
PT CARLENE RUBI HAS C/O DIAREHA, DOWNING FOR 2 DAYS, L LEG PAIN AND HANDS AND FEET SWELLING FOR 3 DAYS. PT CHANGED INTO GOWN, RESTING IN DIANN GOETZ MD AT FOR EVAL AND POC. PT P/W/D, NAD, RESP WNL, WCTM.
[2019-11-07 07:45] VITALS: BP 140/74
--- NOTE | 2019-11-07 07:46 | NUR ---
Patient given discharge instructions and they have confirmed that they understand the instructions. Patient ambulatory. NAD, P/W/D, RESP INTACT, given taxi slip.
--- NOTE | 2019-11-07 07:47 | NUR ---
all questions answered. pt denies additional needs at this time.
== END 2019-11-07 08:08 | disposition home or self-care (01) ==
LOC: ED 07:04
DX: E11.42 Type 2 diabetes mellitus with diabetic polyneuropathy (principal); R20.2 Paresthesia of skin; J44.9 Chronic obstructive pulmonary disease, unspecified; I48.91 Unspecified atrial fibrillation; I11.0 Hypertensive heart disease with heart failure; I50.9 Heart failure, unspecified; Z86.73 Personal history of transient ischemic attack (TIA), and cerebral infarction without residual deficits
CPT/HCPCS: 99283

== ENCOUNTER 2020-02-26 09:34 | Emergency (ER) | payer MEDICARE ==
[~2020-02-26] VITALS: Ht 180.3 cm; Wt 73.0 kg
--- NOTE | 2020-02-26 09:40 | NUR ---
64 Y/O MALE PRESENTS TO ED WITH C/O "I WAS AT [employer] AND GOT MY FOOT CAUGHT WHILE CHARGING MY PHONE. I PULLED AWAY AND I HAD A BIG WATER BLISTER ON MY KNEE. AND IT POPPED FINALLY. I WENT TO [facility] A WEEK AND A HALF AGO AND GOT AN RX. I THREW IT AWAY. THE DR DISCHARGED ME BEFORE HE EVEN SAW ME. IT HURTS REALLY BAD TODAY." PT PLACED ON CONT PULSE OX,NIBP. NO C/O N/V/D, TRAUMA, CP, SOB, SSYNCOPE
--- NOTE | 2020-02-26 10:20 | NUR ---
PIV ESTABLISHED. PT TOLERATED WITH NO COMPLICATIONS. NADN. AWAITING ORDERS.
[2020-02-26] MEDS ORDERED: CLINDAMYCIN PMX 900MG/50ML 50 ML ONE (10:28)
[2020-02-26] MEDS ORDERED: MORPHINE SULFATE 4 MG/ML, 1ML ONE (10:28)
[2020-02-26] MEDS ORDERED: ONDANSETRON 2MG/ML, 2ML ONE (10:28)
[2020-02-26 10:33] LABS: BASOPHILS # (AUTO) 0.06 x10^3/uL (0-0.1); BASOPHILS % (AUTO) 1 % (0-1); EOSINOPHILS # (AUTO) 0.22 x10^3/uL (0-0.4); EOSINOPHILS % (AUTO) 3 % (1-7); LYMPHOCYTES # (AUTO) 1.19 x10^3/uL (1-3.4); LYMPHOCYTES % (AUTO) 15 % (22-44); MD NO; MEAN CORPUSCULAR HEMOGLOBIN 27.8 pg (27.5-34.5); MEAN CORPUSCULAR HGB CONC 32.8 g/dL (33.2-36.2); MEAN CORPUSCULAR VOLUME 84.5 fL (81-97); MEAN PLATELET VOLUME 7.3 fL (7.4-10.4); MONOCYTES # (AUTO) 0.93 x10^3/uL (0.2-0.8); MONOCYTES % (AUTO) 11 % (2-9); NEUTROPHILS # (AUTO) 5.75 x10^3/uL (1.8-6.8); NEUTROPHILS % (AUTO) 71 % (42-75); PLATELET COUNT 266 x10^3/uL (130-400); RED BLOOD COUNT 4.25 x10^6/uL (4.38-5.82); RED CELL DISTRIBUTION WIDTH 17.1 % (9.4-14.8)
[2020-02-26 10:41] LABS: C-REACTIVE PROTEIN, QUANT 0.73 mg/dL (0.02-0.49); CALCIUM 8.3 mg/dL (8.5-10.1); CREATININE 1.08 mg/dL (0.7-1.3)
[2020-02-26 10:48] LABS: HCT (SEDRATE) 35.9 % (39.2-51.8)
[2020-02-26 10:49] LABS: ANION GAP 5 mmol/L (5-15); CHLORIDE 111 mmol/L (98-107)
--- NOTE | 2020-02-26 10:51 | NUR ---
PT BACK FROM IMAGING.
[2020-02-26] MEDS ORDERED: ONDANSETRON 2MG/ML, 2ML IVPush ONE (11:00)
[2020-02-26] MEDS ORDERED: SODIUM CHLORIDE 0.9% 1,000ML IVBOLUS ONE (11:00)
[2020-02-26] MEDS ORDERED: MORPHINE SULFATE 4 MG/ML, 1ML IVPush PRN (11:00)
[2020-02-26] MEDS ORDERED: SODIUM CHLORIDE FLUSH 10ML SYR IVF ONE (11:00)
[2020-02-26] MEDS ORDERED: CLINDAMYCIN PMX 900MG/50ML 50 ML IV ONE (11:00)
--- NOTE | 2020-02-26 11:01 | NUR ---
PT SLEEPING ON GURNEY. BARGER VSS. WILL CONTINUE TO MONITOR.
--- NOTE | 2020-02-26 11:33 | NUR ---
PT RESTING ON GURGERONIMO. ABX INFUSING AT THIS TIME. WHEN ABX COMPLETED, PT READY FOR D/C. NADN. NO NEEDS REQUESTED AT THIS TIME.
[2020-02-26 11:42] VITALS: BP 144/73
--- NOTE | 2020-02-26 12:57 | NUR ---
LATE ENTRY FOR 1237 RECEIVED BEDSIDE REPORT FROM CELESTINO DIAZ.
--- NOTE | 2020-02-26 12:57 | NUR ---
ABX COMPLETED. PT GETTING DRESSED.
--- NOTE | 2020-02-26 13:05 | NUR ---
Patient/Caregiver given discharge instructions and they have confirmed that they understand the instructions. Patient ambulatory with steady gait. PT LEFT WITH ALL PERSONAL BELONGINGS. PIV D/C WITH TIP INTACT. PRESSURE DRESSING APPLIED.
[2020-02-27] MEDS ORDERED: ciprofloxacin PO (10:45)
== END 2020-02-26 13:07 | disposition home or self-care (01) ==
LOC: ED 10:29
DX: L03.116 Cellulitis of left lower limb (principal); J44.9 Chronic obstructive pulmonary disease, unspecified; E11.9 Type 2 diabetes mellitus without complications; I48.91 Unspecified atrial fibrillation; I11.0 Hypertensive heart disease with heart failure; I50.9 Heart failure, unspecified; Z86.73 Personal history of transient ischemic attack (TIA), and cerebral infarction without residual deficits
CPT/HCPCS: 36415; 73564; 80048; 85025; 85651; 86140; 96365; 96366; 96375; 99284; J2270; J2405; J7030

== ENCOUNTER 2020-02-26 15:07 | Emergency (ER) | payer MEDICARE ==
[~2020-02-26] VITALS: Ht 180.3 cm; Wt 74.0 kg
[2020-02-26 15:22] VITALS: BP 127/60
[2020-02-26] MEDS ORDERED: HYDROcodone/APAP 5/325 TABLET PO STA (17:10)
--- NOTE | 2020-02-26 17:11 | NUR ---
BREAK RN: THIS IS A 64 YEAR OLD WHO WAS IN THE ED THIS AM FOR SAME OF RIGHT SIDED LEG PAIN.
[2020-02-26] MEDS ORDERED: HYDROcodone/APAP 5/325 TABLET ONE (17:18)
--- NOTE | 2020-02-26 18:24 | NUR ---
PT BECAME VERY DISGRUNTLED WHEN HE REALIZED HE WAS GETTING SCRIPT FOR NORCO AND OT MEOPHINE. PT DEMANADED MORPHINE AND WAS SHOUTING EXPLETEIVES AT THIS RN AND CALL DR. YUAN AN "ASSHOLE." PT GIVEN DC INSTRUCTIONS AND RX FOR NORCO WITH REFERALL FOR MEDICATION ASSISTANCE.
[2020-02-27] MEDS ORDERED: ciprofloxacin PO (10:45)
== END 2020-02-26 18:27 | disposition home or self-care (01) ==
LOC: ED 16:48
DX: L97.821 Non-pressure chronic ulcer of other part of left lower leg limited to breakdown of skin (principal); E11.622 Type 2 diabetes mellitus with other skin ulcer; L03.116 Cellulitis of left lower limb; J44.9 Chronic obstructive pulmonary disease, unspecified; I11.0 Hypertensive heart disease with heart failure; I50.9 Heart failure, unspecified; I48.91 Unspecified atrial fibrillation; Z86.39 Personal history of other endocrine, nutritional and metabolic disease; Z86.73 Personal history of transient ischemic attack (TIA), and cerebral infarction without residual deficits
CPT/HCPCS: 99283

== ENCOUNTER 2020-02-27 10:06 | Emergency (ER) | payer MEDICARE ==
[~2020-02-27] VITALS: Ht 180.3 cm; Wt 76.8 kg
[2020-02-27 10:09] VITALS: BP 128/70
--- NOTE | 2020-02-27 10:37 | NUR ---
TASK RN: FIRST CONTACT WITH PT. PT RESTING ON GUNREY WITH C/O LEFT KNEE WOUND FOR "2-3 WEEKS". PT REPORTS PUTTING A "CREAM ON IT" THAT IS OTC. HE REPORTS MORPHINE AND NORCO AREN'T HELPING WITH THE PAIN. CALL LIGHT WITHIN REACH.
[2020-02-27] MEDS ORDERED: ciprofloxacin PO (10:45)
[2020-02-27] MEDS ORDERED: OXYcodone/APAP 5/325MG TABLET ONE (10:55)
[2020-02-27] MEDS ORDERED: OXYcodone/APAP 5/325MG TABLET PO ONE (11:00)
== END 2020-02-27 11:15 | disposition home or self-care (01) ==
LOC: ED 10:42
DX: L98.499 Non-pressure chronic ulcer of skin of other sites with unspecified severity (principal); I11.0 Hypertensive heart disease with heart failure; I50.9 Heart failure, unspecified; E11.9 Type 2 diabetes mellitus without complications; I48.91 Unspecified atrial fibrillation; J44.9 Chronic obstructive pulmonary disease, unspecified; Z86.73 Personal history of transient ischemic attack (TIA), and cerebral infarction without residual deficits; Z87.891 Personal history of nicotine dependence
CPT/HCPCS: 99283; 99406

== ENCOUNTER 2020-03-15 14:27 | Emergency (ER) | payer MEDICARE ==
[~2020-03-15] VITALS: Ht 180.3 cm; Wt 73.0 kg
[~2020-03-15 14:27] MED LIST changes: +ciprofloxacin PO
--- NOTE | 2020-03-15 14:50 | NUR ---
biba for dyspnea and cough x 1.5 weeks ; left knee wound , left leg pain x 1.5 weeks tested negative for covid approx [address] [facility]. report received from ems. pt attached to all monitors, EKG taken on arrival by EDT. pt undressed completely, pt in gown. EDMD Sahm at bedside to assess. call light in reach.
[2020-03-15] MEDS ORDERED: ALBUTEROL/IPRATROPIUM 2.5MG/0.5MG, 3 ML NPPB ONE (15:00)
--- NOTE | 2020-03-15 15:00 | NUR ---
REPORT GIVEN TO RN'S NIKOLE WHO ARE ASSUMING CARE.
[2020-03-15 15:14] LABS: BASOPHILS # (AUTO) 0.04 x10^3/uL (0-0.1); BASOPHILS % (AUTO) 1 % (0-1); EOSINOPHILS # (AUTO) 0.22 x10^3/uL (0-0.4); EOSINOPHILS % (AUTO) 3 % (1-7); LYMPHOCYTES # (AUTO) 1.55 x10^3/uL (1-3.4); LYMPHOCYTES % (AUTO) 22 % (22-44); MD NO; MEAN CORPUSCULAR HEMOGLOBIN 27.8 pg (27.5-34.5); MEAN CORPUSCULAR HGB CONC 32.7 g/dL (33.2-36.2); MEAN CORPUSCULAR VOLUME 85.1 fL (81-97); MONOCYTES # (AUTO) 0.99 x10^3/uL (0.2-0.8); MONOCYTES % (AUTO) 14 % (2-9); NEUTROPHILS # (AUTO) 4.14 x10^3/uL (1.8-6.8); NEUTROPHILS % (AUTO) 60 % (42-75); PLATELET COUNT 241 x10^3/uL (130-400); RED BLOOD COUNT 4.01 x10^6/uL (4.38-5.82); RED CELL DISTRIBUTION WIDTH 17.8 % (9.4-14.8)
[2020-03-15] MEDS ORDERED: ALBUTEROL/IPRATROPIUM 2.5MG/0.5MG, 3 ML ONE (15:22)
[2020-03-15 15:26] LABS: ALANINE AMINOTRANSFERASE 35 U/L (12-78); ALBUMIN 3.4 g/dL (3.4-5.0); ANION GAP 7 mmol/L (5-15); CALCIUM 8.9 mg/dL (8.5-10.1); CHLORIDE 113 mmol/L (98-107); CREATININE 0.93 mg/dL (0.7-1.3)
[2020-03-15] MEDS ORDERED: HYDROcodone/APAP 5/325 TABLET PO ONE (15:30)
[2020-03-15 15:31] LABS: ALKALINE PHOSPHATASE 175 U/L (45-117); BILIRUBIN,TOTAL 0.4 mg/dL (0.2-1.0); TOTAL PROTEIN 8.2 g/dL (6.4-8.2); TROPONIN I < 0.015 ng/mL (0.000-0.045)
[2020-03-15] MEDS ORDERED: HYDROcodone/APAP 5/325 TABLET ONE (15:33)
[2020-03-15 18:35] VITALS: BP 164/85
--- NOTE | 2020-03-15 18:36 | NUR ---
Patient given discharge instructions and they have confirmed that they understand the instructions. Patient ambulatory with steady gait.
== END 2020-03-15 18:37 | disposition home or self-care (01) ==
LOC: ED 16:00
DX: J43.9 Emphysema, unspecified (principal); L50.9 Urticaria, unspecified; R06.02 Shortness of breath; R94.31 Abnormal electrocardiogram [ECG] [EKG]; E11.9 Type 2 diabetes mellitus without complications; I48.91 Unspecified atrial fibrillation; I11.0 Hypertensive heart disease with heart failure; I50.9 Heart failure, unspecified; Z86.73 Personal history of transient ischemic attack (TIA), and cerebral infarction without residual deficits; Z87.891 Personal history of nicotine dependence
CPT/HCPCS: 36415; 71045; 80053; 84484; 85025; 93005; 94640; 99285; J7512

== ENCOUNTER 2020-03-30 20:01 | Emergency (ER) | payer MEDICARE ==
[~2020-03-30] VITALS: Ht 180.3 cm; Wt 74.0 kg
[~2020-03-30 20:01] MED LIST changes: -PANT40TA5 PO; +PANT40TA6 PO
--- NOTE | 2020-03-30 20:57 | NUR ---
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 TO ROOM FROM LOBBY AT THIS TIME.
--- NOTE | 2020-03-30 21:07 | NUR ---
ERP AT BS.
[2020-03-30] MEDS ORDERED: CEFTRIAXONE 1,000 MG IM ONE (21:30)
[2020-03-30] MEDS ORDERED: DOXYCYCLINE 100MG TABLET PO ONE (21:30)
[2020-03-30] MEDS ORDERED: CEFTRIAXONE 1,000 MG ONE (22:06)
[2020-03-30] MEDS ORDERED: LIDOCAINE-MPF 1%, 5ML ONE ×2 (22:20→22:39)
[2020-03-30] MEDS ORDERED: DOXYCYCLINE 100MG TABLET ONE (22:20)
--- NOTE | 2020-03-30 22:43 | NUR ---
WHILE PREPARING TO DISCHARGE PT, PT STARTED SWEARING AND YELLING AT THIS RN, STATING, "I WANT TO BE ADMITTED! THIS IS JUST GOING TO COME BACK. I WANT THE WOUND DRAINED AND THEN I WANT TO BE ADMITTED." ERP NOTIFIED. GERRI BAUTISTA AT NOW FOR I&D OF LLE WOUND.
[2020-03-30] MEDS ORDERED: NEOSPORIN OINT. PKT 1 PACKET ONE (22:49)
[2020-03-30 22:52] VITALS: BP 164/86
--- NOTE | 2020-03-30 23:20 | NUR ---
LLE WOUND DRESSED WITH ABX OINTMENT, ADAPTIC, GAUZE, KERLIX WRAP. EXTRA WOUND CARE SUPPLIES PROVIDED TO PT. D/C INSTRUCTIONS, MEDS & F/U APPT RV'WD WITH PT. RX GIVEN X1. PT AMBULATED OUT OF ED WITHOUT DIFFICULTY. CAB VOUCHER PROVIDED.
== END 2020-03-30 21:16 ==
LOC: ED 21:15
DX: L03.116 Cellulitis of left lower limb (principal); I11.0 Hypertensive heart disease with heart failure; I50.9 Heart failure, unspecified; R94.31 Abnormal electrocardiogram [ECG] [EKG]; E11.9 Type 2 diabetes mellitus without complications; I48.91 Unspecified atrial fibrillation; G89.29 Other chronic pain; J43.9 Emphysema, unspecified; Z86.73 Personal history of transient ischemic attack (TIA), and cerebral infarction without residual deficits; Z87.891 Personal history of nicotine dependence
CPT/HCPCS: 10060; 93005; 96372; 99283; J0696

== ENCOUNTER 2020-04-21 22:09 | Emergency (ER) | payer MEDICARE ==
[~2020-04-21] VITALS: Ht 180.3 cm; Wt 73.0 kg
[2020-04-21] MEDS ORDERED: IBUPROFEN 800 MG TABLET ONE (22:34)
[2020-04-21] MEDS ORDERED: ACETAMINOPHEN 500 MG TABLET ONE (22:35)
[2020-04-21] MEDS ORDERED: IBUPROFEN 800 MG TABLET PO STA (22:35)
[2020-04-21 22:41] VITALS: BP 159/87
--- NOTE | 2020-04-21 22:46 | NUR ---
PT MEDICATED FOR FEVER. SHOUTING AT RN TO TAKE HIS PANTS OFF HE HAS TO "PEE PEE" PT PROVIDED URINAL. WHEN RN INSTRUCTED PT TO REMOVE OWN PANTS PT BEGAN GROWLING AT RN. PT INFORMED RN WILL RETURN FOR BREATHING TX SHORTLY
[2020-04-21] MEDS ORDERED: ACETAMINOPHEN 500 MG TABLET PO ONE (23:00)
[2020-04-21] MEDS ORDERED: SODIUM CHLORIDE FLUSH 10ML SYR IVF ONE (23:00)
[2020-04-21] MEDS ORDERED: SODIUM CHLORIDE 0.9% 1,000ML IVBOLUS ONE (23:00)
[2020-04-21] MEDS ORDERED: ALBUTEROL/IPRATROPIUM 2.5MG/0.5MG, 3 ML NPPB ONE (23:00)
[2020-04-21 23:28] LABS: ALANINE AMINOTRANSFERASE 35 U/L (12-78); ALBUMIN 3.7 g/dL (3.4-5.0); ANION GAP 6 mmol/L (5-15); CALCIUM 8.3 mg/dL (8.5-10.1); CHLORIDE 108 mmol/L (98-107); CREATININE 1.19 mg/dL (0.7-1.3)
[2020-04-21 23:30] LABS: ALKALINE PHOSPHATASE 160 U/L (45-117); BILIRUBIN,TOTAL 0.5 mg/dL (0.2-1.0); TOTAL PROTEIN 8.6 g/dL (6.4-8.2)
[2020-04-21 23:36] LABS: BASOPHILS % (AUTO) 0 % (0-1); EOSINOPHILS # (AUTO) 0.01 x10^3/uL (0-0.4); EOSINOPHILS % (AUTO) 0 % (1-7); LYMPHOCYTES # (AUTO) 0.78 x10^3/uL (1-3.4); LYMPHOCYTES % (AUTO) 12 % (22-44); MD NO; MEAN CORPUSCULAR HEMOGLOBIN 27.6 pg (27.5-34.5); MEAN CORPUSCULAR HGB CONC 32.7 g/dL (33.2-36.2); MEAN PLATELET VOLUME 7.7 fL (7.4-10.4); MONOCYTES # (AUTO) 0.73 x10^3/uL (0.2-0.8); MONOCYTES % (AUTO) 12 % (2-9); NEUTROPHILS # (AUTO) 4.79 x10^3/uL (1.8-6.8); NEUTROPHILS % (AUTO) 76 % (42-75); PLATELET COUNT 173 x10^3/uL (130-400); RED BLOOD COUNT 4.57 x10^6/uL (4.38-5.82); RED CELL DISTRIBUTION WIDTH 17.2 % (9.4-14.8)
[2020-04-21] MEDS ORDERED: ALBUTEROL/IPRATROPIUM 2.5MG/0.5MG, 3 ML ONE (23:36)
[2020-04-22] MEDS ORDERED: AZITHROMYCIN 250 MG TABLET ONE (00:16)
[2020-04-22] MEDS ORDERED: AZITHROMYCIN 500 MG TABLET PO ONE (00:30)
== END 2020-04-22 00:42 | disposition home or self-care (01) ==
LOC: ED 04-22
DX: U07.1 COVID-19 (principal); J44.1 Chronic obstructive pulmonary disease with (acute) exacerbation; J15.9 Unspecified bacterial pneumonia; F15.20 Other stimulant dependence, uncomplicated; M79.10 Myalgia, unspecified site; R50.9 Fever, unspecified; R05 Cough; E11.9 Type 2 diabetes mellitus without complications; I50.9 Heart failure, unspecified; I11.0 Hypertensive heart disease with heart failure; I48.91 Unspecified atrial fibrillation; F17.210 Nicotine dependence, cigarettes, uncomplicated; Z86.39 Personal history of other endocrine, nutritional and metabolic disease; Z86.73 Personal history of transient ischemic attack (TIA), and cerebral infarction without residual deficits; Z72.9 Problem related to lifestyle, unspecified
CPT/HCPCS: 36415; 71045; 80053; 83605; 84145; 85025; 87040; 87635; 93005; 94640; 99285; 99406; J7030

== ENCOUNTER 2020-04-27 11:49 | Emergency (ER) | payer MEDICARE ==
[~2020-04-27] VITALS: Ht 175.3 cm; Wt 72.9 kg
--- NOTE | 2020-04-27 12:10 | NUR ---
PT BIB EMS C/O LEFT LEG PAIN. PT DENIES TRAUMA. PT TOLD EMS ITS BEEN GOING ON FOR MONTHS. PROVIDER BEDSIDE
--- NOTE | 2020-04-27 12:11 | NUR ---
PT HAS RANDOM JERKING MOVEMENTS THROUGHOUT THE BODY THAT THE PT STATES IS NORMAL FOR HIM.
[2020-04-27] MEDS ORDERED: KETOROLAC 30 MG/1 ML IVPush ONE (12:30)
[2020-04-27 12:34] LABS: BASOPHILS % (AUTO) 0 % (0-1); EOSINOPHILS % (AUTO) 0 % (1-7); LYMPHOCYTES % (AUTO) 11 % (22-44); MEAN CORPUSCULAR HEMOGLOBIN 27.1 pg (27.5-34.5); MEAN CORPUSCULAR HGB CONC 32.1 g/dL (33.2-36.2); MEAN PLATELET VOLUME 7.2 fL (7.4-10.4); MONOCYTES % (AUTO) 17 % (2-9); NEUTROPHILS % (AUTO) 71 % (42-75); PLATELET COUNT 228 x10^3/uL (130-400); RED BLOOD COUNT 4.07 x10^6/uL (4.38-5.82); RED CELL DISTRIBUTION WIDTH 16.7 % (9.4-14.8)
[2020-04-27 12:40] LABS: ALBUMIN 2.9 g/dL (3.4-5.0); ANION GAP 9 mmol/L (5-15); CALCIUM 8.4 mg/dL (8.5-10.1); CHLORIDE 108 mmol/L (98-107); CREATININE 1.68 mg/dL (0.7-1.3)
[2020-04-27 13:03] LABS: ANISOCYTOSIS 1+; HYPOCHROMIA 1+; MD MORPH REVIEW ONLY
[2020-04-27 13:04] LABS: <PLATELET ESTIMATE> ADEQUATE; <PLT MORPHOLOGY> NORMAL PLT MORPH; POLYCHROMASIA 1+
--- NOTE | 2020-04-27 13:41 | NUR ---
STRAIGHT CATH DONE FOR URINE SAMPLE COLLECTION.
[2020-04-27] MEDS ORDERED: KETOROLAC 30 MG/1 ML ONE (13:53)
[2020-04-27] MEDS ORDERED: KETOROLAC 30 MG/1 ML IM ONE (14:00)
--- NOTE | 2020-04-27 14:10 | NUR ---
PT MEDICATED FOR LEG PAIN DUE TO CRAMPING. PT CURRENTLY 04/30 PRIOR TO ADMINISTRATION.
[2020-04-27 14:43] LABS: AMPHETAMINE SCREEN, URINE Positive (Negative); BARBITURATE SCREEN, URINE Negative (Negative); BENZODIAZEPINE SCREEN, URINE Negative (Negative); CANNABINOID SCREEN, URINE Negative (Negative); COCAINE SCREEN, URINE Negative (Negative); METHADONE SCREEN, URINE Negative (Negative); OPIATE SCREEN, URINE Negative (Negative)
[2020-04-27 14:56] VITALS: BP 115/50
--- NOTE | 2020-04-27 14:57 | NUR ---
PT STATES PAIN WENT AWAY INITIALLY AFTER MED ADMINISTRATION, HOWEVER THE PAIN HAS COME BACK
--- NOTE | 2020-04-27 15:43 | NUR ---
OPT RECEIVED DC INSTRUCTINS AND EDUCATIO. PT AMBULATED TO DC DESK, STEADY GAIT.
== END 2020-04-27 15:45 | disposition home or self-care (01) ==
LOC: ED 14:23
DX: M79.662 Pain in left lower leg (principal); G89.29 Other chronic pain; F15.129 Other stimulant abuse with intoxication, unspecified; I11.0 Hypertensive heart disease with heart failure; I50.9 Heart failure, unspecified; E11.9 Type 2 diabetes mellitus without complications; J44.9 Chronic obstructive pulmonary disease, unspecified; I48.91 Unspecified atrial fibrillation; Z86.73 Personal history of transient ischemic attack (TIA), and cerebral infarction without residual deficits
CPT/HCPCS: 36415; 80048; 80307; 82040; 83735; 85025; 93971; 96372; 99284; J1885

== ENCOUNTER 2020-04-29 15:02 | Emergency (ER) | payer MEDICARE ==
[~2020-04-29] VITALS: Ht 180.3 cm; Wt 75.0 kg
[2020-04-29] MEDS ORDERED: SODIUM CHLORIDE FLUSH 10ML SYR IVF ONE (15:30)
[2020-04-29] MEDS ORDERED: ACETAMINOPHEN 500 MG TABLET ONE (15:44)
[2020-04-29 15:47] LABS: ALBUMIN 2.7 g/dL (3.4-5.0); ANION GAP 3 mmol/L (5-15); CALCIUM 8.6 mg/dL (8.5-10.1); CHLORIDE 114 mmol/L (98-107)
[2020-04-29 15:48] LABS: CREATININE 1.06 mg/dL (0.7-1.3)
[2020-04-29 15:50] LABS: BASOPHILS % (AUTO) 0 % (0-1); EOSINOPHILS % (AUTO) 0 % (1-7); LYMPHOCYTES % (AUTO) 10 % (22-44); MEAN CORPUSCULAR HEMOGLOBIN 27.2 pg (27.5-34.5); MEAN CORPUSCULAR HGB CONC 32.4 g/dL (33.2-36.2); MEAN PLATELET VOLUME 7.4 fL (7.4-10.4); MONOCYTES % (AUTO) 9 % (2-9); NEUTROPHILS % (AUTO) 81 % (42-75); PLATELET COUNT 264 x10^3/uL (130-400); RED BLOOD COUNT 4.15 x10^6/uL (4.38-5.82); RED CELL DISTRIBUTION WIDTH 16.8 % (9.4-14.8)
[2020-04-29 15:59] LABS: MD NO
[2020-04-29] MEDS ORDERED: ACETAMINOPHEN 500 MG TABLET PO ONE (16:00)
[2020-04-29] MEDS ORDERED: ALBUTEROL/IPRATROPIUM 2.5MG/0.5MG, 3 ML NPPB ONE (16:30)
--- NOTE | 2020-04-29 16:38 | NUR ---
DR POND HAS UPDATED PATIENT. PATIENT RESTING IN ROOM. VS STABLE. NO ACUTE DISTRESS NOTED. WILL COTNINUE TO MONITOR.
[2020-04-29] MEDS ORDERED: CEFTRIAXONE PMX 1GM/50ML 50 ML ONE (16:40)
[2020-04-29] MEDS ORDERED: ALBUTEROL/IPRATROPIUM 2.5MG/0.5MG, 3 ML ONE (16:40)
--- NOTE | 2020-04-29 16:47 | NUR ---
BOTH BLOOD CULTURES DRAWN BEFORE ABX GIVEN
[2020-04-29] MEDS ORDERED: SODIUM CHLORIDE 0.9% 1,000ML IVBOLUS ONE (17:00)
[2020-04-29] MEDS ORDERED: CEFTRIAXONE PMX 1GM/50ML 50 ML IVPB ONE (17:00)
--- NOTE | 2020-04-29 17:13 | NUR ---
PT RESTING IN ROOM. VS STABLE. PHYSICIST SOLID EARTH ON. NSR NOTED. CALL LIGHT IN PLACE. WILL CONTINUE TO MONITOR.
[2020-04-29 18:15] VITALS: BP 123/62
--- NOTE | 2020-04-29 18:16 | NUR ---
PATIENT RESTING IN ROOM. VS STABLE. NO ACUTE DISTRESS NOTED. WILL CONTINUE TO MONITOR.
--- NOTE | 2020-04-29 18:53 | NUR ---
PT ABLE TO SAFELY AMBLUATE AROUND ROOM AND GET SELF DRESSED. VS STABLE. PT GIVEN A TAXI VOUCHER. PT CALLING THIS RN PROFANITY NAMES. SECURITY CALLED. PT ESCORTED OUT BY SECURITY.
== END 2020-04-29 18:55 | disposition home or self-care (01) ==
LOC: ED 15:12
DX: J18.9 Pneumonia, unspecified organism (principal); R50.9 Fever, unspecified; M79.662 Pain in left lower leg; I11.0 Hypertensive heart disease with heart failure; I50.9 Heart failure, unspecified; E11.40 Type 2 diabetes mellitus with diabetic neuropathy, unspecified; J44.9 Chronic obstructive pulmonary disease, unspecified; I48.91 Unspecified atrial fibrillation; Z86.73 Personal history of transient ischemic attack (TIA), and cerebral infarction without residual deficits
CPT/HCPCS: 36415; 71045; 80048; 82040; 83605; 84145; 85025; 87040; 94640; 96365; 99284; J0696; J7030; 87181

== ENCOUNTER 2020-06-03 02:12 | Emergency (ER) | payer MEDICARE ==
[~2020-06-03] VITALS: Ht 180.3 cm; Wt 71.9 kg
[2020-06-03 02:16] VITALS: BP 138/72
[2020-06-03] MEDS ORDERED: HYDROcodone/APAP 5/325 TABLET ONE (02:56)
[2020-06-03] MEDS ORDERED: HYDROcodone/APAP 5/325 TABLET PO ONE (03:00)
[2020-06-03 03:27] LABS: BASOPHILS % (AUTO) 1 % (0-1); EOSINOPHILS % (AUTO) 2 % (1-7); LYMPHOCYTES % (AUTO) 20 % (22-44); MEAN CORPUSCULAR HEMOGLOBIN 27.2 pg (27.5-34.5); MEAN CORPUSCULAR HGB CONC 32.4 g/dL (33.2-36.2); MEAN PLATELET VOLUME 7.2 fL (7.4-10.4); MONOCYTES % (AUTO) 8 % (2-9); NEUTROPHILS % (AUTO) 68 % (42-75); PLATELET COUNT 303 x10^3/uL (130-400); RED BLOOD COUNT 4.41 x10^6/uL (4.38-5.82); RED CELL DISTRIBUTION WIDTH 17.6 % (9.4-14.8)
[2020-06-03 03:36] LABS: ALANINE AMINOTRANSFERASE 26 U/L (12-78); ALBUMIN 3.3 g/dL (3.4-5.0); ANION GAP 7 mmol/L (5-15); CALCIUM 8.9 mg/dL (8.5-10.1); CHLORIDE 110 mmol/L (98-107); CREATININE 1.99 mg/dL (0.7-1.3)
[2020-06-03 03:38] LABS: ALKALINE PHOSPHATASE 176 U/L (45-117); BILIRUBIN,TOTAL 0.4 mg/dL (0.2-1.0); CREATINE KINASE, TOTAL 192 U/L (39-308); TOTAL PROTEIN 8.2 g/dL (6.4-8.2)
[2020-06-03 03:40] LABS: MD NO
[2020-06-03] MEDS ORDERED: SODIUM CHLORIDE FLUSH 10ML SYR IVF ONE (04:00)
[2020-06-03] MEDS ORDERED: SODIUM CHLORIDE 0.9% 1,000ML IVBOLUS ONE (04:00)
--- NOTE | 2020-06-03 04:18 | NUR ---
Patient refused IV attempts, provider aware. PO fluids given
--- NOTE | 2020-06-03 05:10 | NUR ---
PATIENT REFUSED D/C VITALS, DEMANDED HE GOT AN OJ BEFORE HE LEFT WELL A BUS PASS. PATIENT AMBULATED OUT OF THE ER WITH BUS PASS
== END 2020-06-03 05:13 | disposition home or self-care (01) ==
LOC: ED 02:47
DX: M79.10 Myalgia, unspecified site (principal); E86.0 Dehydration; R94.4 Abnormal results of kidney function studies; E11.9 Type 2 diabetes mellitus without complications; I48.91 Unspecified atrial fibrillation; J44.9 Chronic obstructive pulmonary disease, unspecified; I50.9 Heart failure, unspecified; I11.0 Hypertensive heart disease with heart failure; Z72.9 Problem related to lifestyle, unspecified; Z86.39 Personal history of other endocrine, nutritional and metabolic disease; Z86.73 Personal history of transient ischemic attack (TIA), and cerebral infarction without residual deficits
CPT/HCPCS: 36415; 80053; 82550; 85025; 99283

== ENCOUNTER 2020-08-02 12:27 | Emergency (ER) | payer MEDICARE ==
[~2020-08-02] VITALS: Ht 180.3 cm; Wt 73.0 kg
[~2020-08-02 12:27] MED LIST changes: +CARV12.52 PO; +CLON-364 PO; +FLUT1BLS INH; +FURO20TA3 PO; +FURO40TA6 PO; +LEVO750T6 PO; +METF10007 PO; +SPIR100T4 PO; +WARF-36 PO
--- NOTE | 2020-08-02 12:30 | NUR ---
[facility] c/o bilat leg swelling. pt has been seen here previously for same pt is anxious and yelling. when attemtped to calm pt, pt yelling at this RN "don't you tell me to stop, I will walk right out of here!" pt is agitated and making multiple c/o. pt uncooperative with assessment. warm blankets given per request. pt has trace edema to bilat LE. pt reports that he was given a Rx from here for same, but didn't fill it and doesn't know what it is. no family at bedside
--- NOTE | 2020-08-02 12:41 | NUR ---
awaiting MD to see. report to Claudio TIRADO for lunch
--- NOTE | 2020-08-02 13:15 | NUR ---
lab at bedside to draw
[2020-08-02 13:32] LABS: BASOPHILS % (AUTO) 0 % (0-1); EOSINOPHILS % (AUTO) 1 % (1-7); LYMPHOCYTES % (AUTO) 10 % (22-44); MEAN CORPUSCULAR HEMOGLOBIN 28.3 pg (27.5-34.5); MEAN CORPUSCULAR HGB CONC 32.4 g/dL (33.2-36.2); MEAN PLATELET VOLUME 7.5 fL (7.4-10.4); MONOCYTES % (AUTO) 12 % (2-9); NEUTROPHILS % (AUTO) 77 % (42-75); PLATELET COUNT 156 x10^3/uL (130-400); RED BLOOD COUNT 4.36 x10^6/uL (4.38-5.82); RED CELL DISTRIBUTION WIDTH 20.5 % (9.4-14.8)
[2020-08-02 13:33] LABS: MD NO
[2020-08-02 13:40] LABS: ALANINE AMINOTRANSFERASE 32 U/L (12-78); ALBUMIN 2.6 g/dL (3.4-5.0); ANION GAP 5 mmol/L (5-15); CALCIUM 8.5 mg/dL (8.5-10.1); CHLORIDE 111 mmol/L (98-107); CREATININE 1.12 mg/dL (0.7-1.3)
[2020-08-02 13:45] LABS: ALKALINE PHOSPHATASE 157 U/L (45-117); BILIRUBIN,TOTAL 0.4 mg/dL (0.2-1.0); TOTAL PROTEIN 6.2 g/dL (6.4-8.2); TROPONIN I < 0.015 ng/mL (0.000-0.045)
[2020-08-02 14:00] VITALS: BP 140/69
--- NOTE | 2020-08-02 14:20 | NUR ---
lab at bedside for redraw
--- NOTE | 2020-08-02 14:33 | NUR ---
pt has refused re-draw
--- NOTE | 2020-08-02 14:43 | NUR ---
Dr. Leigh at bedside for recheck
--- NOTE | 2020-08-02 15:03 | NUR ---
no changes. awaiting D/C order
--- NOTE | 2020-08-02 15:29 | NUR ---
have attempted to enter room to give pt D/C instructions. pt states "you're a moron" pt agiatated and uncooperative. pt becoming verbally aggressive. pt has swung his wrist at this RN. security contacted and to bedside to assist with D/C
== END 2020-08-02 16:04 | disposition home or self-care (01) ==
LOC: ED 13:08
DX: J15.9 Unspecified bacterial pneumonia (principal); R07.89 Other chest pain; R06.02 Shortness of breath; M79.89 Other specified soft tissue disorders; E11.9 Type 2 diabetes mellitus without complications; I48.91 Unspecified atrial fibrillation; I11.0 Hypertensive heart disease with heart failure; I50.9 Heart failure, unspecified; Z86.39 Personal history of other endocrine, nutritional and metabolic disease; Z86.73 Personal history of transient ischemic attack (TIA), and cerebral infarction without residual deficits
CPT/HCPCS: 36415; 71045; 80053; 83880; 84484; 85025; 93005; 99285

== ENCOUNTER 2020-08-14 20:01 | Emergency (ER) | payer MEDICARE ==
[~2020-08-14] VITALS: Ht 180.3 cm; Wt 76.8 kg
[~2020-08-14 20:01] MED LIST changes: -OXYC5TAB3 PO; +OXYC5TAB98 PO
--- NOTE | 2020-08-14 20:09 | NUR ---
[place] Patient [place] no home. Patient c/o SOB and cough x1 week. Patient states he has been seen for these symtpoms and was dx with pna. Patient has not got his meds filled. Also c/o swollen hands and feet with discomfort. States he has slight CP but "it's not bad." Patient is in NAD. Respirations even and unlabored. Patient coughing on arrival. Skin PWD.
--- NOTE | 2020-08-14 20:45 | NUR ---
LABS DRAWN AND IV PLACED. PATIENT REPORTS BEING DC WITH PNEUMONIA LAST WEEK BUT DID NOT TAKE THE REST OF HIS ABX HE WAS PRESCRIBED. CALL POLLARD IN REACH. SAFETY MAINTAINED. WILL CONTINUE TO MONITOR.
[2020-08-14 21:17] LABS: BASOPHILS % (AUTO) 1 % (0-1); EOSINOPHILS % (AUTO) 3 % (1-7); LYMPHOCYTES % (AUTO) 27 % (22-44); MEAN CORPUSCULAR HEMOGLOBIN 28.8 pg (27.5-34.5); MEAN CORPUSCULAR HGB CONC 33.2 g/dL (33.2-36.2); MEAN PLATELET VOLUME 6.7 fL (7.4-10.4); MONOCYTES % (AUTO) 12 % (2-9); NEUTROPHILS % (AUTO) 58 % (42-75); PLATELET COUNT 366 x10^3/uL (130-400); RED BLOOD COUNT 4.26 x10^6/uL (4.38-5.82); RED CELL DISTRIBUTION WIDTH 19.5 % (9.4-14.8)
[2020-08-14 21:22] LABS: MD NO
[2020-08-14 21:26] LABS: ALANINE AMINOTRANSFERASE 31 U/L (12-78); ALBUMIN 3.1 g/dL (3.4-5.0); ANION GAP 7 mmol/L (5-15); CALCIUM 8.5 mg/dL (8.5-10.1); CHLORIDE 113 mmol/L (98-107); CREATININE 1.37 mg/dL (0.7-1.3)
[2020-08-14 21:30] LABS: ALKALINE PHOSPHATASE 191 U/L (45-117); BILIRUBIN,TOTAL 0.3 mg/dL (0.2-1.0); TOTAL PROTEIN 7.7 g/dL (6.4-8.2); TROPONIN I < 0.015 ng/mL (0.000-0.045)
--- NOTE | 2020-08-14 21:53 | NUR ---
PATIENT RESTING IN BED IN NAD. SAFETY MAINTAINED. WILL CONTINUE TO MONITOR.
--- NOTE | 2020-08-14 22:20 | NUR ---
RN WALKED BY PATIENT'S ROOM AND SAW PATIENT'S O2 SAT WAS 72% WITH PERFECT WAVE FORM/PLETH. RN WOKE PATIENT UP AND O2 SAT INCREASED TO 90% ON RA. RN PLACED 2L VIA NC ON PATIENT. WILL CONTINUE TO REASSESS THIS. PATIENT IRRITATED WITH NEEDING O2. I ASKED HIM IF HE REQUIRES O2 AT HOME WHILE SLEEPING AND HE SAID NO. SAFETY MAINTAINED. CALL PLOLARD IN REACH.
--- NOTE | 2020-08-14 23:15 | NUR ---
PATIENT RESTING IN BED WITH EYES CLOSED. RN ENETERED ROOM AND PLACED ICE CHIPS ON MAY STAND AT BEDSIDE. PATIENT NOW ON RA AT 91-93% O2 SAT. CALL POLLARD IN REACH. WILL CONTINUE TO MONITOR.
--- NOTE | 2020-08-14 23:35 | NUR ---
PATIENT HAVING EPISODES OF APNEA DURING SLEEP. HIS O2 SATURATION WILL ALARM AT 76% WITH GREAT WAVE FORM AND PLETH, RN IN TO ROOM AND IT REMAINS THIS LOW. RN ASSESSED PATIENT FOR 3 MINUTES AND HE WAS HAVING PERIODIC EPISODES OF APNEA CAUSING HIS O2 SAT TO DECREASE DRAMATICALLY. IN NAD. SNORING AT TIMES/HEAVY BREATHING DURING SLEEP. PATIENT HAD DECREASED O2 SAT'S NUMEROUS TIMES DURING THIS ASSESSMENT. I PLACED PATIENT ON 2L VIA NC DURING REST. WILL CONTINUE TO MONITOR.
[2020-08-15 01:44] VITALS: BP 134/74
--- NOTE | 2020-08-15 01:45 | NUR ---
DISCHARGE INSTRUCTIONS REVIEWED WITH PATIENT. PATIENT STATED HE HAD NO FURTHER QUESTIONS. HE KEPT ASKING WHY HIS FEET HURT SO MUCH. HE REPORTED TO ME THAT HE WALKS "A LOT" DURING THE DAY. AMBULATED WITH STEADY GAIT JUST SMALL SHUFFLES. NO SOB ON EXERTION. IN NAD. ALL PERSONAL BELONGINGS WITH PATIENT. IV DC'D PER PROTOCOL. TAXI VOUCHER GIVEN TO DESK FOR PATIENT.
== END 2020-08-15 02:22 | disposition home or self-care (01) ==
LOC: ED 20:52 → UNDOADMIN 08-15 00:10 → EDIP 08-15 00:10 → ED 08-15 02:16
DX: R06.00 Dyspnea, unspecified (principal); R05 Cough; I50.9 Heart failure, unspecified; Z86.73 Personal history of transient ischemic attack (TIA), and cerebral infarction without residual deficits; Z59.0 Homelessness
CPT/HCPCS: 36415; 71045; 80053; 83605; 83880; 84484; 85025; 87040; 93005; 99285

== ENCOUNTER 2020-10-02 16:55 | Emergency (ER) | payer MEDICARE ==
[~2020-10-02] VITALS: Ht 165.1 cm; Wt 72.0 kg
[~2020-10-02 16:55] MED LIST changes: +METH-639 PO; -METH500T7 PO
--- NOTE | 2020-10-02 17:00 | NUR ---
pt BIB [facility] c/o pain and swelling to R groin x2 days. pt denies trauma pt has a systemic rash and reports that his groin is itchy
[2020-10-02] MEDS ORDERED: LIDOCAINE-MPF 1%, 5ML ONE (17:27)
[2020-10-02] MEDS ORDERED: LIDOCAINE-MPF 1%, 5ML INFIL ONE (17:30)
--- NOTE | 2020-10-02 17:38 | NUR ---
Vincent BAUTISTA at bedside for I&D. lidocaine administered by MICHELE
[2020-10-02] MEDS ORDERED: NEOSPORIN OINT. PKT 1 PACKET ONE (18:00)
[2020-10-02 18:15] VITALS: BP 160/80
== END 2020-10-02 18:20 | disposition home or self-care (01) ==
LOC: ED 17:06
DX: L02.214 Cutaneous abscess of groin (principal); E11.9 Type 2 diabetes mellitus without complications; J44.9 Chronic obstructive pulmonary disease, unspecified; I11.0 Hypertensive heart disease with heart failure; I50.9 Heart failure, unspecified; F17.210 Nicotine dependence, cigarettes, uncomplicated; Z86.73 Personal history of transient ischemic attack (TIA), and cerebral infarction without residual deficits; Z86.39 Personal history of other endocrine, nutritional and metabolic disease
CPT/HCPCS: 99283

== ENCOUNTER 2020-10-18 02:42 | Emergency (ER) | payer MEDICARE ==
[~2020-10-18] VITALS: Ht 180.3 cm; Wt 72.7 kg
--- NOTE | 2020-10-18 02:54 | NUR ---
DR. BALLARD IN TO EVAL PT. AND DISCUSS POC.
--- NOTE | 2020-10-18 03:09 | NUR ---
BIB EMS ON A LEGAL 2K BY RPCarol FOR INABILITY TO CARE FOR SELF. PT. WAS FOUND DOWN ON A SIDEWALK NEAR [facility]. PT. VERY DIFFICULT TO UNDERSTAND UPON ARRIVAL R/T LOOSE DENTURES; DENTURES REMOVED. A&O X 4 ON ARRIVAL TO ED. PT. REPORTS HX OF STROKE IN 2008, DM, AND COPD. PT. CONTINUALLY STATES "MY LEGS HURT". PT. REQUESTING PAIN MEDS FOR LEG PAIN AND STATES "THEY SAY MY LEGS HURT BECAUSE OF MY DIABETES", STATES CHRONIC PAIN "TONIGHT I JUMPED OFF THE CURB AND NOW THEY HURT EVEN WORSE". PT. STATES "I TRIPED OFF THE CURB BECAUSE OF MY STROKE". ASSESSMENT DIFFICULT R/T PT. RAMBLED SPEECH AND CONTINUOUS FLAILING MOVEMENTS. PERRL. NO SIGNS OF TRAUMA NOTED. PT. DENIES DRUGS/ETOH. DENIES SI/HI. ALL CLOTHING REMOVED AND PLACED INTO 1 BAG. WARM BLANKETS AND KECIA PAW WARMER IN USE. 2L O2 VIA NC PLACED FOR DESAT TO 82% ON ARRIVAL WITH IMMEDIATE INCREASE TO >94%. SPO2 AND B/P MONITORS IN PLACE. CALL LIGHT IN REACH AND PT. EDUCATED ON USE. ALL SAFETY MEASURES OBSERVED.
[2020-10-18] MEDS ORDERED: ACETAMINOPHEN 325 MG TABLET ONE (03:26)
[2020-10-18] MEDS ORDERED: ACETAMINOPHEN 325 MG TABLET PO ONE (03:30)
--- NOTE | 2020-10-18 03:30 | NUR ---
PT DIFFICULT TO UNDERSTAND, APPEARS ANXIOUS AND PULLING AWAY FROM VITALS PULSE OXIMITER AND NASAL CANNULA.
--- NOTE | 2020-10-18 03:34 | NUR ---
PT. HAD REQUESTED TYLENOL; ADMIN PER SEP AFTER DISCUSSION WITH DR. BALLARD.
[2020-10-18 03:38] LABS: BASOPHILS % (AUTO) 1 % (0-1); EOSINOPHILS % (AUTO) 1 % (1-7); LYMPHOCYTES % (AUTO) 6 % (22-44); MEAN CORPUSCULAR HEMOGLOBIN 28.5 pg (27.5-34.5); MEAN CORPUSCULAR HGB CONC 32.1 g/dL (33.2-36.2); MEAN PLATELET VOLUME 7.2 fL (7.4-10.4); MONOCYTES % (AUTO) 10 % (2-9); NEUTROPHILS % (AUTO) 83 % (42-75); PLATELET COUNT 343 x10^3/uL (130-400); RED BLOOD COUNT 4.85 x10^6/uL (4.38-5.82); RED CELL DISTRIBUTION WIDTH 17.5 % (9.4-14.8)
[2020-10-18 03:47] LABS: ALANINE AMINOTRANSFERASE 46 U/L (12-78); ALBUMIN 3.6 g/dL (3.4-5.0); ANION GAP 13 mmol/L (5-15); CALCIUM 9.6 mg/dL (8.5-10.1); CHLORIDE 107 mmol/L (98-107); CREATININE 3.56 mg/dL (0.7-1.3)
[2020-10-18 03:48] LABS: SALICYLATE LEVEL < 1.7 mg/dL (2.8-20.0)
[2020-10-18 03:49] LABS: ALKALINE PHOSPHATASE 190 U/L (45-117); BILIRUBIN,TOTAL 0.8 mg/dL (0.2-1.0); TOTAL PROTEIN 8.9 g/dL (6.4-8.2)
[2020-10-18 03:59] LABS: MD SCAN
[2020-10-18] MEDS ORDERED: SODIUM CHLORIDE 0.9% 1,000ML IVBOLUS ONE ×2 (04:00→04:30)
--- NOTE | 2020-10-18 05:24 | NUR ---
PT IN GURNEY UPRIGHT RECEIVING IV NS BOLUS. NO SIGNS OF INFILTRATION.
--- NOTE | 2020-10-18 05:29 | NUR ---
PT HAS HAD X10 8/OZ CUPS OF WATER OVER THE LAST COUPLE HOURS KEEPS REQUESTING MORE.
--- NOTE | 2020-10-18 07:11 | NUR ---
REPORT FROM AMY TIRADO
[2020-10-18 07:46] LABS: CREATININE 2.99 mg/dL (0.7-1.3)
[2020-10-18 08:18] VITALS: BP 139/70
--- NOTE | 2020-10-18 08:18 | NUR ---
MD AWARE PT C/O NO BM FOR 2 DAYS AND ABDOMINAL CRAMPING. PER MD PT TO BE DISCHARGED WITH SUGGESTION TO GET OTC SUPPOSITORY
--- NOTE | 2020-10-18 08:46 | NUR ---
UOB TO BATHROOM WHERE HE HAD A BM, INCONTINENCE OF STOOL. PT CLEANED HIMSELF UP AND BACK TO ROOM TO GET DRESSED AFTER D/C PAPERS GIVEN. PT USES BUSH TO HELP WALK WITH WHAT APPEARS TO ALLEVIATE FOOT PAIN AND PROVIDE BALANCE
== END 2020-10-18 09:15 | disposition home or self-care (01) ==
LOC: MERGE 02:42 → EDBD 02:42 → ED 07:47
DX: N18.9 Chronic kidney disease, unspecified (principal); F15.129 Other stimulant abuse with intoxication, unspecified; R94.31 Abnormal electrocardiogram [ECG] [EKG]
CPT/HCPCS: 36415; 80053; 80143; 80179; 80320; 82550; 82565; 84520; 85025; 93005; 96360; 99285; J7030; G0480

== ENCOUNTER 2020-11-03 20:01 | Emergency (ER) | payer MEDICARE ==
[~2020-11-03] VITALS: Ht 182.9 cm; Wt 80.0 kg
[~2020-11-03 20:01] MED LIST changes: +IBUP-1902 PO
[2020-11-03 20:19] VITALS: BP 153/93
--- NOTE | 2020-11-03 20:25 | NUR ---
Patient presents to ER c/o bilat foot swelling with redness to the left foot. Patient states it started about a week ago. He also fx his right foot a week ago. Patient is in NAD. Respirations even and unlabored.
[2020-11-03 22:18] LABS: BASOPHILS % (AUTO) 1 % (0-1); EOSINOPHILS % (AUTO) 5 % (1-7); LYMPHOCYTES % (AUTO) 21 % (22-44); MEAN CORPUSCULAR HEMOGLOBIN 28.7 pg (27.5-34.5); MEAN CORPUSCULAR HGB CONC 32.2 g/dL (33.2-36.2); MEAN PLATELET VOLUME 6.9 fL (7.4-10.4); MONOCYTES % (AUTO) 11 % (2-9); NEUTROPHILS % (AUTO) 62 % (42-75); PLATELET COUNT 316 x10^3/uL (130-400); RED BLOOD COUNT 4.43 x10^6/uL (4.38-5.82); RED CELL DISTRIBUTION WIDTH 19.3 % (9.4-14.8)
[2020-11-03 22:20] LABS: MD NO
[2020-11-03 22:29] LABS: ALANINE AMINOTRANSFERASE 23 U/L (12-78); ALBUMIN 2.7 g/dL (3.4-5.0); ANION GAP 6 mmol/L (5-15); CALCIUM 8.4 mg/dL (8.5-10.1); CHLORIDE 116 mmol/L (98-107)
[2020-11-03 22:32] LABS: ALKALINE PHOSPHATASE 134 U/L (45-117); BILIRUBIN,TOTAL 0.3 mg/dL (0.2-1.0); CREATININE 1.29 mg/dL (0.7-1.3); TOTAL PROTEIN 6.7 g/dL (6.4-8.2)
[2020-11-03] MEDS ORDERED: KETOROLAC 60 MG/2 ML ONE (23:13)
--- NOTE | 2020-11-03 23:15 | NUR ---
US in room. They advised they are unable to complete exam because patient is moving around; c/o pain. Admin meds per mar.
[2020-11-04] MEDS ORDERED: KETOROLAC 60 MG/2 ML IM ONE
--- NOTE | 2020-11-04 00:10 | NUR ---
Patient's pain improved. US to be attempted again.
--- NOTE | 2020-11-04 02:04 | NUR ---
Patient d/c instructions given. All questions and concerns attempted to be addressed. Patient unwilling to be educated. Patient able to stand without assistance but refused to cooperate. Wheeled patient out and taxi voucher provided. Belongings with patient.
== END 2020-11-04 02:03 | disposition home or self-care (01) ==
LOC: ED 11-04 01:55
DX: I70.223 Atherosclerosis of native arteries of extremities with rest pain, bilateral legs (principal); F15.129 Other stimulant abuse with intoxication, unspecified; Z72.9 Problem related to lifestyle, unspecified; I10 Essential (primary) hypertension; E11.9 Type 2 diabetes mellitus without complications; J44.9 Chronic obstructive pulmonary disease, unspecified; I48.91 Unspecified atrial fibrillation; Z86.73 Personal history of transient ischemic attack (TIA), and cerebral infarction without residual deficits
CPT/HCPCS: 36415; 80053; 85025; 93970; 96372; 99284; J1885

== ENCOUNTER 2020-11-07 13:58 | Emergency (ER) | payer MEDICARE ==
[~2020-11-07] VITALS: Ht 180.3 cm; Wt 79.0 kg
--- NOTE | 2020-11-07 14:00 | NUR ---
PT BIB BY EMS FOR BILATERAL FOOT PAIN R>L. PT STATES HE FRACTURED R. FOOT 2 WEEKS AGO AND WAS SUPPOSED TO BE WEARING A BOOT BUT HASN'T. PT'S R. ANKLE HAS STICHES AND SWELLING PRESENT IN R. FOOT AND ANKLE. CMS INTACT IN BOTH FEET +PEDAL PULSES. PT ATTACHED TO MONITORS. VSS. BEJARANO.
[2020-11-07 15:39] VITALS: BP 155/72
--- NOTE | 2020-11-07 15:39 | NUR ---
ERIN BAUTISTA TO BEDSIDE TO DISCUSS RESULTS. VSS. BEJARANO.
[2020-11-07] MEDS ORDERED: ACETAMINOPHEN 500 MG TABLET ONE (16:49)
[2020-11-07] MEDS ORDERED: ACETAMINOPHEN 500 MG TABLET PO ONE (17:00)
--- NOTE | 2020-11-07 17:29 | NUR ---
Patient given discharge instructions and they have confirmed that they understand the instructions. Patient ambulatory with steady gait with walker instead of crutches.
== END 2020-11-07 17:30 | disposition home or self-care (01) ==
LOC: ED 16:24
DX: S82.434A Nondisplaced oblique fracture of shaft of right fibula, initial encounter for closed fracture (principal); E11.9 Type 2 diabetes mellitus without complications; I48.91 Unspecified atrial fibrillation; I11.0 Hypertensive heart disease with heart failure; I50.9 Heart failure, unspecified; J43.9 Emphysema, unspecified; Z86.73 Personal history of transient ischemic attack (TIA), and cerebral infarction without residual deficits; Z86.39 Personal history of other endocrine, nutritional and metabolic disease; Z91.19 Patient's noncompliance with other medical treatment and regimen; W01.0XXA Fall on same level from slipping, tripping and stumbling without subsequent striking against object, initial encounter; Y93.89 Activity, other specified; Y92.009 Unspecified place in unspecified non-institutional (private) residence as the place of occurrence of the external cause; Y99.8 Other external cause status
CPT/HCPCS: 99284

== ENCOUNTER 2021-01-11 11:14 | Emergency (ER) | payer MEDICARE ==
[~2021-01-11] VITALS: Ht 180.3 cm; Wt 71.1 kg
[2021-01-11 12:21] LABS: BASOPHILS % (AUTO) 1 % (0-1); EOSINOPHILS % (AUTO) 3 % (1-7); LYMPHOCYTES % (AUTO) 10 % (22-44); MEAN CORPUSCULAR HGB CONC 32.6 g/dL (33.2-36.2); MEAN PLATELET VOLUME 7.5 fL (7.4-10.4); MONOCYTES % (AUTO) 11 % (2-9); NEUTROPHILS % (AUTO) 76 % (42-75); PLATELET COUNT 307 x10^3/uL (130-400); RED BLOOD COUNT 4.83 x10^6/uL (4.38-5.82)
[2021-01-11 12:31] LABS: ALBUMIN 3.1 g/dL (3.4-5.0); ANION GAP 9 mmol/L (5-15); CALCIUM 8.6 mg/dL (8.5-10.1); CHLORIDE 108 mmol/L (98-107); CREATININE 1.02 mg/dL (0.7-1.3)
[2021-01-11 13:18] LABS: HCT (SEDRATE) 41.2 % (39.2-51.8)
--- NOTE | 2021-01-11 14:13 | NUR ---
supervisor core drilling: Pt to room from lobby at this time.
--- NOTE | 2021-01-11 14:13 | NUR ---
PT FROM LOBBY TO ROOM VIA WC.
[2021-01-11 14:30] VITALS: BP 153/72
--- NOTE | 2021-01-11 14:30 | NUR ---
PT UNDRESSED, GOWN IN PLACE, WARM BLANKET PROVIDED. CALL LIGHT WITHIN REACH. VS UPDATED. ERP IN TO SEE PT.
== END 2021-01-11 14:58 | disposition home or self-care (01) ==
LOC: ED 14:55
DX: M25.571 Pain in right ankle and joints of right foot (principal); G89.29 Other chronic pain; I10 Essential (primary) hypertension; E11.9 Type 2 diabetes mellitus without complications; J44.9 Chronic obstructive pulmonary disease, unspecified; I48.91 Unspecified atrial fibrillation; Z86.73 Personal history of transient ischemic attack (TIA), and cerebral infarction without residual deficits
CPT/HCPCS: 36415; 80048; 82040; 85025; 85651; 86140; 99285

== ENCOUNTER 2021-01-15 16:21 | Emergency (ER) | payer MEDICARE ==
[~2021-01-15] VITALS: Ht 180.3 cm; Wt 73.0 kg
[2021-01-15 17:45] VITALS: BP 109/84
--- NOTE | 2021-01-15 18:50 | NUR ---
REPORT TO CELESTINO HUYNH
--- NOTE | 2021-01-15 18:55 | NUR ---
REPORT FROM NEMESIO RN
[2021-01-15] MEDS ORDERED: ACETAMINOPHEN 500 MG TABLET PO ONE (19:00)
[2021-01-15] MEDS ORDERED: DEXAMETHASONE 4 MG TABLET PO ONE (19:00)
[2021-01-15] MEDS ORDERED: ACETAMINOPHEN 500 MG TABLET ONE (19:16)
[2021-01-15] MEDS ORDERED: DEXAMETHASONE 4 MG TABLET ONE (19:16)
[2021-01-18] MEDS ORDERED: HYDROcodone/APAP 5/325 TABLET PO ONE (21:30)
[2021-01-18] MEDS ORDERED: CEPHALEXIN 500 MG CAPSULE PO ONE (21:30)
== END 2021-01-15 19:23 | disposition home or self-care (01) ==
LOC: ED 19:17
DX: R21 Rash and other nonspecific skin eruption (principal); Z72.9 Problem related to lifestyle, unspecified; I10 Essential (primary) hypertension; Z87.891 Personal history of nicotine dependence
CPT/HCPCS: 99283

== ENCOUNTER 2021-01-18 18:50 | Emergency (ER) | payer MEDICARE ==
[~2021-01-18] VITALS: Ht 180.3 cm; Wt 75.0 kg
--- NOTE | 2021-01-18 20:39 | NUR ---
PT WHEELED TO ROOM AT THIS TIME.
--- NOTE | 2021-01-18 20:53 | NUR ---
PT. TO ED WITH C/O WOUNDS TO BILAT LOWER EXTREMITIES. PT. STATES THEY HAVE BEEN THERE FOR 2 WEEKS AND NOT IMPROVING. PT. NOTED TO HAVE MULTIPLE OPEN WOUND FROM LYONS TO ANKLE ON BOTH LEGS. REDNESS AND SWELLING NOTED. PT. REPORTS HE IS DAIBETIC AND DOESN'T TAKE ANY MEDS FOR THIS. PT. POOR HISTORIAN. SPO2 AND B/P MONITORS PLACED.
--- NOTE | 2021-01-18 21:08 | NUR ---
DR. MOE TO BS FOR EVAL.
--- NOTE | 2021-01-18 21:50 | NUR ---
PT VERBALLY AGGRESSIVE AT TIME OF DC. PT UPSET ABOUT BEING DISCHARGED. UPON ATTEMPTING TO PROVIDE DC INSTRUCTIONS PT STATES, "FUCK YOU MOTHER FUCKER!" TO THIS RN. PT ABLE TO PERFORM ADL'S APPROPRIATELY DRESSING SELF. DC INSTRUCTIONS PROVIDED. PT REMAINED VERBALLY AGGRESSIVE THROUGHOUT DC PROCESS. AMBULATORY TO CHECKOUT C STEADY GAIT.
[2021-01-18 21:52] VITALS: BP 156/70
--- NOTE | 2021-01-18 21:53 | NUR ---
BUS PASS PROVIDED TO PT UPON DC PER PT REQUEST.
== END 2021-01-18 21:54 | disposition home or self-care (01) ==
LOC: ED 21:44
DX: G89.29 Other chronic pain (principal); M79.661 Pain in right lower leg; M79.662 Pain in left lower leg; L89.899 Pressure ulcer of other site, unspecified stage; L53.9 Erythematous condition, unspecified; L03.116 Cellulitis of left lower limb; L03.115 Cellulitis of right lower limb; I11.0 Hypertensive heart disease with heart failure; I50.9 Heart failure, unspecified; E11.9 Type 2 diabetes mellitus without complications; J43.9 Emphysema, unspecified; I48.91 Unspecified atrial fibrillation; Z86.73 Personal history of transient ischemic attack (TIA), and cerebral infarction without residual deficits; Z87.891 Personal history of nicotine dependence
CPT/HCPCS: 99283

== ENCOUNTER 2021-01-22 10:23 | Emergency (ER) | payer MEDICARE ==
[~2021-01-22] VITALS: Ht 167.6 cm; Wt 72.8 kg
[2021-01-22] MEDS ORDERED: MUPIROCIN OINT 2%, 22GM TP SCH (10:48)
[2021-01-22] MEDS ORDERED: HYDROCORTISONE CRM 2.5%, 20GM TP SCH (10:59)
[2021-01-22] MEDS ORDERED: OXYcodone/APAP 5/325MG TABLET PO ONE (11:00)
[2021-01-22] MEDS ORDERED: CEPHALEXIN 500 MG CAPSULE PO ONE (11:00)
[2021-01-22] MEDS ORDERED: CEPHALEXIN 500 MG CAPSULE ONE (11:37)
[2021-01-22] MEDS ORDERED: OXYcodone/APAP 5/325MG TABLET ONE (11:38)
[2021-01-22 11:44] VITALS: BP 134/59
--- NOTE | 2021-01-22 11:52 | NUR ---
bekah was in room. legs wrapped w/ ointment by [employer] per sep. pt tbdc. vss. as
== END 2021-01-22 12:54 | disposition home or self-care (01) ==
LOC: ED 11:02
DX: M79.661 Pain in right lower leg (principal); I11.0 Hypertensive heart disease with heart failure; I50.9 Heart failure, unspecified; E11.9 Type 2 diabetes mellitus without complications; J44.9 Chronic obstructive pulmonary disease, unspecified; I48.91 Unspecified atrial fibrillation; Z86.73 Personal history of transient ischemic attack (TIA), and cerebral infarction without residual deficits
CPT/HCPCS: 99284

== ENCOUNTER 2021-01-26 04:25 | Emergency (ER) | payer MEDICARE ==
[~2021-01-26] VITALS: Ht 180.3 cm; Wt 75.0 kg
[2021-01-26 04:29] VITALS: BP 125/83
--- NOTE | 2021-01-26 05:15 | NUR ---
ERP TO BEDSIDE FOR EVAL
--- NOTE | 2021-01-26 05:52 | NUR ---
pt given dc inst. demanding to see the doctor again, demanding his legs be wrapped and he needs something for pain. pt informed that the md has deemed him safe for dc home, and he needs to f/u for pain mgmt.
[2021-01-26] MEDS ORDERED: MUPIROCIN OINT 2%, 1 GM APPL. TP SCH (09:00)
== END 2021-01-26 05:55 ==
LOC: ED 05:40
DX: L03.116 Cellulitis of left lower limb (principal); G89.29 Other chronic pain; E11.9 Type 2 diabetes mellitus without complications; I11.0 Hypertensive heart disease with heart failure; I50.9 Heart failure, unspecified; Z86.39 Personal history of other endocrine, nutritional and metabolic disease; Z87.891 Personal history of nicotine dependence
CPT/HCPCS: 99283

== ENCOUNTER 2021-03-09 16:38 | Emergency (ER) | payer MEDICARE ==
[~2021-03-09] VITALS: Ht 180.3 cm; Wt 74.8 kg
[2021-03-09 17:12] VITALS: BP 146/68
[2021-03-09] MEDS ORDERED: LIDOCAINE-MPF 1%, 5ML ONE (17:38)
--- NOTE | 2021-03-09 17:44 | NUR ---
abscess to right lower back where waistband is. large quarter size circular wound with black in the middle surronded by blanchable redness.
--- NOTE | 2021-03-09 17:52 | NUR ---
dr barry at bedside for IND
[2021-03-09] MEDS ORDERED: LIDOCAINE 1%-EPI 1:100K, 20ML INFIL ONE (18:00)
--- NOTE | 2021-03-09 18:33 | NUR ---
Patient given discharge instructions and they have confirmed that they understand the instructions and follow up care. Patient ambulatory with cane. NAD, all questions answered appropriately, denies additional needs at this time. No personal belongings left in room after discharge.
== END 2021-03-09 18:34 | disposition home or self-care (01) ==
LOC: ED 18:10
DX: L02.212 Cutaneous abscess of back [any part, except buttock and flank] (principal); L03.312 Cellulitis of back [any part except buttock and flank]; E11.9 Type 2 diabetes mellitus without complications; I11.0 Hypertensive heart disease with heart failure; I50.9 Heart failure, unspecified; I48.91 Unspecified atrial fibrillation; Z86.73 Personal history of transient ischemic attack (TIA), and cerebral infarction without residual deficits; Z86.39 Personal history of other endocrine, nutritional and metabolic disease; Z87.891 Personal history of nicotine dependence
CPT/HCPCS: 10060; 99284

== ENCOUNTER 2021-03-10 13:21 | Emergency (ER) | payer MEDICARE ==
[~2021-03-10] VITALS: Ht 180.3 cm; Wt 75.0 kg
[2021-03-10 14:01] VITALS: BP 136/70
--- NOTE | 2021-03-10 15:27 | NUR ---
elementary spanish teacher note: No answer from lobby when called for room. Registration tech states "He said he was going to come back tomorrow"
== END 2021-03-10 15:29 | disposition left against medical advice (07) ==
LOC: ED 15:23
DX: Z48.01 Encounter for change or removal of surgical wound dressing (principal)
CPT/HCPCS: 99281

== ENCOUNTER 2021-03-11 09:23 | Emergency (ER) | payer MEDICARE ==
[~2021-03-11] VITALS: Ht 180.3 cm; Wt 76.6 kg
[2021-03-11 09:25] VITALS: BP 122/62
--- NOTE | 2021-03-11 09:44 | NUR ---
in tube conversion technician note: Pt to room from lobby.
--- NOTE | 2021-03-11 09:53 | NUR ---
Pt to demond removed top and exposed lower back wound. Removed dressing, pt has packing to lower back, serous drainage with redness. Pt reports he was supposed to return yesterday but wait was too long. Pt says he wants it repacked.
--- NOTE | 2021-03-11 10:18 | NUR ---
PA-C at bedside for repacking of lower back abscess. Pt to be dispo after
== END 2021-03-11 10:37 | disposition home or self-care (01) ==
LOC: ED 10:00
DX: L02.212 Cutaneous abscess of back [any part, except buttock and flank] (principal); I50.9 Heart failure, unspecified; I11.0 Hypertensive heart disease with heart failure; J44.9 Chronic obstructive pulmonary disease, unspecified; E11.9 Type 2 diabetes mellitus without complications; Z88.8 Allergy status to other drugs, medicaments and biological substances; Z88.2 Allergy status to sulfonamides; Z86.73 Personal history of transient ischemic attack (TIA), and cerebral infarction without residual deficits
CPT/HCPCS: 99281

== ENCOUNTER 2021-03-11 15:49 | Emergency (ER) | payer MEDICARE ==
[~2021-03-11] VITALS: Ht 180.3 cm; Wt 76.4 kg
[2021-03-11 16:16] VITALS: BP 140/93
--- NOTE | 2021-03-11 16:25 | NUR ---
pt seen in ED this morning, had wound packed, pt states packing came out today. pt has no other s/sx, a&o, resps even and unlabored, vss, nadn.
--- NOTE | 2021-03-11 16:58 | NUR ---
wound re-packed and dressed by ERMCarol, pt educated on dc instructions, verbalized understanding. ambulatory to dc desk with steady gait, nadn.
== END 2021-03-11 17:01 | disposition home or self-care (01) ==
LOC: ED 16:00
DX: Z48.01 Encounter for change or removal of surgical wound dressing (principal); M54.9 Dorsalgia, unspecified; I11.0 Hypertensive heart disease with heart failure; I50.9 Heart failure, unspecified; E11.9 Type 2 diabetes mellitus without complications; J44.9 Chronic obstructive pulmonary disease, unspecified; Z87.891 Personal history of nicotine dependence; Z86.19 Personal history of other infectious and parasitic diseases
CPT/HCPCS: 99282

== ENCOUNTER 2021-03-30 19:49 | Inpatient (IN) | payer MEDICARE ==
[~2021-03-30] VITALS: Ht 180.3 cm; Wt 80.9 kg
--- NOTE | 2021-03-30 20:21 | NUR ---
PT TO ED VIA EMS FOR L SIDED CP X 2 DAYS, NOW STATES PAIN IS R SIDED. PT C/O COUGH C WHEEZING X 2 DAYS ALSO. RBS 316, STATES HE HAS NEVER BEEN ON INSULIN. PT ALSO C/O L KNEE PAIN, STATES HE FELL WHEN THE BUS STOPPED. SMALL ABRASION NOTED.
[2021-03-30] MEDS ORDERED: ALBUTEROL/IPRATROPIUM 2.5MG/0.5MG, 3 ML NPPB ONE (20:30)
[2021-03-30] MEDS ORDERED: SODIUM CHLORIDE 0.9% 1,000ML IVBOLUS ONE ×2 (20:30→22:00)
[2021-03-30] MEDS ORDERED: SODIUM CHLORIDE FLUSH 10ML SYR IVF ONE (20:30)
[2021-03-30] MEDS ORDERED: ALBUTEROL/IPRATROPIUM 2.5MG/0.5MG, 3 ML ONE (20:39)
[2021-03-30] MEDS ORDERED: NEOSPORIN OINT. PKT 1 PACKET ONE (20:40)
[2021-03-30 20:59] LABS: BASOPHILS % (AUTO) 0 % (0-1); EOSINOPHILS % (AUTO) 0 % (1-7); LYMPHOCYTES % (AUTO) 6 % (22-44); MEAN CORPUSCULAR HEMOGLOBIN 28.1 pg (27.5-34.5); MEAN CORPUSCULAR HGB CONC 32.2 g/dL (33.2-36.2); MEAN PLATELET VOLUME 7.6 fL (7.4-10.4); MONOCYTES % (AUTO) 9 % (2-9); NEUTROPHILS % (AUTO) 85 % (42-75); PLATELET COUNT 246 x10^3/uL (130-400); RED BLOOD COUNT 4.03 x10^6/uL (4.38-5.82); RED CELL DISTRIBUTION WIDTH 15.8 % (9.4-14.8)
[2021-03-30 21:10] LABS: ALANINE AMINOTRANSFERASE 25 U/L (12-78); ALBUMIN 2.6 g/dL (3.4-5.0); ANION GAP 5 mmol/L (5-15); CALCIUM 8.8 mg/dL (8.5-10.1); CHLORIDE 111 mmol/L (98-107); CREATININE 1.22 mg/dL (0.7-1.3)
[2021-03-30 21:14] LABS: ALKALINE PHOSPHATASE 127 U/L (45-117); BILIRUBIN,TOTAL 0.2 mg/dL (0.2-1.0); TOTAL PROTEIN 6.9 g/dL (6.4-8.2); TROPONIN I < 0.015 ng/mL (0.000-0.045)
[2021-03-30] MEDS ORDERED: AZITHROMYCIN 500 MG in SODIUM CHLORIDE 0.9% 250 ML IV ONE (22:00)
--- NOTE | 2021-03-30 22:19 | NUR ---
PHLEB AT BS FOR B/C X 2.
[2021-03-30] MEDS ORDERED: ACETAMINOPHEN 325 MG TABLET ONE (22:59)
[2021-03-30] MEDS ORDERED: ONDANSETRON ODT 4 MG PO PRN (23:00)
[2021-03-30] MEDS: AZITHROMYCIN 500 MG in SODIUM CHLORIDE 0.9% 250 ML IV SCH (23:00)
[2021-03-30] MEDS ORDERED: ACETAMINOPHEN 325 MG TABLET PO ONE (23:00)
[2021-03-30] MEDS ORDERED: POLYETHYLENE GLYCOL 17 GM PACKET PO PRN (23:00)
[2021-03-30] MEDS ORDERED: metFORMIN 500 MG TABLET PO SCH (23:00)
[2021-03-30] MEDS ORDERED: BISACODYL 10 MG SUPP PR PRN (23:00)
[2021-03-30] MEDS ORDERED: SODIUM CHLORIDE 0.9% 1,000 ML IV SCH (23:00)
[2021-03-30] MEDS ORDERED: CEFTRIAXONE 1,000 MG in DEXTROSE 5% 50 ML IVPB ONE (23:00)
[2021-03-30] MEDS ORDERED: KETOROLAC 30 MG/1 ML IV PRN (23:00)
--- NOTE | 2021-03-30 23:22 | NUR ---
COVID SWAB OBTAINED & WALKED TO LAB
--- NOTE | 2021-03-31 00:21 | NUR ---
PT AMBULATORY TO RESTROOM C STEADY GAIT C CANE. PT GIVEN SANDWICH. TRANSFERED TO FLOOR AT THIS TIME.
[2021-03-31 00:36] VITALS: BP 168/82
[2021-03-31] MEDS ORDERED: HEPARIN 5,000 UNITS/ML, 1ML SQ SCH (01:00)
[2021-03-31] MEDS: CEFTRIAXONE 1,000 MG in DEXTROSE 5% 50 ML IVPB SCH (01:33)
[2021-03-31] MEDS: ACETAMINOPHEN 325 MG TABLET PO PRN (02:39)
[2021-03-31] MEDS: MELATONIN 5 MG TABLET PO PRN ×2 (02:40→22:49)
[2021-03-31 02:53] LABS: ANION GAP 4 mmol/L (5-15); BASOPHILS % (AUTO) 1 % (0-1); CALCIUM 8.5 mg/dL (8.5-10.1); CHLORIDE 112 mmol/L (98-107); CREATININE 1.17 mg/dL (0.7-1.3); EOSINOPHILS % (AUTO) 0 % (1-7); LYMPHOCYTES % (AUTO) 3 % (22-44); MEAN CORPUSCULAR HEMOGLOBIN 28.5 pg (27.5-34.5); MEAN CORPUSCULAR HGB CONC 32.2 g/dL (33.2-36.2); MEAN PLATELET VOLUME 7.7 fL (7.4-10.4); MONOCYTES % (AUTO) 5 % (2-9); NEUTROPHILS % (AUTO) 92 % (42-75); PLATELET COUNT 221 x10^3/uL (130-400); RED BLOOD COUNT 4.13 x10^6/uL (4.38-5.82); RED CELL DISTRIBUTION WIDTH 16.1 % (9.4-14.8)
[2021-03-31] MEDS ORDERED: GLUCAGON 1 MG IM PRN (07:30)
[2021-03-31] MEDS ORDERED: DEXTROSE 50%, 50ML SYRINGE IVPush PRN (07:30)
[2021-03-31] MEDS ORDERED: DEXTROSE 4 GM TAB.CHEW PO PRN (07:30)
[2021-03-31] MEDS: ASPIRIN 81 MG TABLET EC PO SCH (08:03)
[2021-03-31] MEDS: SODIUM CHLORIDE FLUSH 10ML SYR IVF SCH ×2 (08:04→20:39)
[2021-03-31] MEDS: SENNA/DOCUSATE TABLET PO SCH (08:04)
[2021-03-31 08:16] VITALS: BP 191/99
[2021-03-31] MEDS: ENOXAPARIN 40 MG/0.4 ML SQ SCH (08:20)
[2021-03-31] MEDS: LISINOPRIL 10 MG TABLET PO SCH ×2 (09:46→20:39)
[2021-03-31] MEDS: INSULIN GLARGINE 100 UNITS/ML, PEN SQ-INSULIN SCH ×2 (09:47→21:15)
[2021-03-31] MEDS: INSULIN LISPRO 100 UNITS/ML, PEN SQ-INSULIN SCH ×4 (09:48→21:14)
[2021-03-31 14:56] VITALS: BP 196/90
[2021-03-31] MEDS: LABETALOL 5MG/ML, 20ML IVPush PRN (15:31)
[2021-03-31 17:17] VITALS: BP 180/82
[2021-03-31] MEDS ORDERED: ALPRazolam 1MG TAB ONE (18:10)
[2021-03-31 19:54] VITALS: BP 170/84
[2021-03-31] MEDS: AZITHROMYCIN 500 MG in SODIUM CHLORIDE 0.9% 250 ML IV SCH (23:33)
[2021-04-01] MEDS: CEFTRIAXONE 1,000 MG in DEXTROSE 5% 50 ML IVPB SCH (00:31)
[2021-04-01 00:47] VITALS: BP 158/86
[2021-04-01] MEDS: GUAIFENESIN/DM 200-20MG, 10ML UDC PO PRN (00:52)
[2021-04-01] MEDS: INSULIN LISPRO 100 UNITS/ML, PEN SQ-INSULIN SCH ×4 (07:00→20:18)
[2021-04-01] MEDS: SENNA/DOCUSATE TABLET PO SCH (09:00)
[2021-04-01] MEDS: SODIUM CHLORIDE FLUSH 10ML SYR IVF SCH ×2 (09:00→19:46)
[2021-04-01 09:10] LABS: MEAN CORPUSCULAR HEMOGLOBIN 28.7 pg (27.5-34.5); MEAN CORPUSCULAR HGB CONC 32.5 g/dL (33.2-36.2); MEAN PLATELET VOLUME 7.6 fL (7.4-10.4); PLATELET COUNT 238 x10^3/uL (130-400); RED CELL DISTRIBUTION WIDTH 16.5 % (9.4-14.8)
[2021-04-01 09:22] LABS: ANION GAP 9 mmol/L (5-15); CALCIUM 8.7 mg/dL (8.5-10.1); CHLORIDE 107 mmol/L (98-107); CREATININE 0.79 mg/dL (0.7-1.3)
[2021-04-01 10:17] LABS: EOS#(MANUAL) 0.21 x10^3/uL (0.0-0.4); EOS% (MANUAL) 1 % (1-7); LYMPH#(MANUAL) 2.53 x10^3/uL (1-3.4); LYMPHS% (MANUAL) 12 % (22-44); MONOS#(MANUAL) 2.74 x10^3/uL (0.3-2.7); MONOS% (MANUAL) 13 % (2-9); SEG#(MANUAL) 15.61 x10^3/uL (1.8-6.8); SEGS% (MANUAL) 74 % (42-75)
[2021-04-01 10:19] LABS: <PLATELET ESTIMATE> ADEQUATE; <PLT MORPHOLOGY> NORMAL PLT MORPH; <RBC MORPHOLOGY> NORMAL
[2021-04-01] MEDS: ENOXAPARIN 40 MG/0.4 ML SQ SCH (10:40)
[2021-04-01] MEDS: ASPIRIN 81 MG TABLET EC PO SCH (10:40)
[2021-04-01] MEDS: LISINOPRIL 10 MG TABLET PO SCH ×2 (10:41→20:15)
[2021-04-01 10:47] VITALS: BP 194/100
[2021-04-01] MEDS: LABETALOL 5MG/ML, 20ML IVPush PRN ×2 (10:49→15:58)
[2021-04-01] MEDS: INSULIN GLARGINE 100 UNITS/ML, PEN SQ-INSULIN SCH ×2 (10:54→20:22)
[2021-04-01] MEDS: ACETAMINOPHEN 325 MG TABLET PO PRN (11:27)
[2021-04-01 11:28] VITALS: BP 171/80
[2021-04-01] MEDS ORDERED: PINK BISMUTH 87.33 MG/5 ML ORAL SUSP PO PRN (12:30)
[2021-04-01 15:55] VITALS: BP 184/96
[2021-04-01 19:50] VITALS: BP 157/75
[2021-04-01] MEDS: TRAZODONE 50MG TABLET PO PRN (20:43)
[2021-04-01] MEDS: AZITHROMYCIN 500 MG in SODIUM CHLORIDE 0.9% 250 ML IV SCH (23:28)
[2021-04-02] MEDS: CEFTRIAXONE 1,000 MG in DEXTROSE 5% 50 ML IVPB SCH (00:30)
[2021-04-02 00:32] VITALS: BP 155/77
[2021-04-02] MEDS: GUAIFENESIN/DM 200-20MG, 10ML UDC PO PRN (00:55)
[2021-04-02] MEDS: ACETAMINOPHEN 325 MG TABLET PO PRN ×2 (05:01→15:30)
[2021-04-02 07:38] VITALS: BP 170/77
[2021-04-02] MEDS: ENOXAPARIN 40 MG/0.4 ML SQ SCH (07:43)
[2021-04-02] MEDS: ASPIRIN 81 MG TABLET EC PO SCH (07:43)
[2021-04-02] MEDS: SENNA/DOCUSATE TABLET PO SCH (07:44)
[2021-04-02] MEDS: SODIUM CHLORIDE FLUSH 10ML SYR IVF SCH ×2 (07:44→21:10)
[2021-04-02] MEDS: LISINOPRIL 10 MG TABLET PO SCH ×2 (07:44→21:10)
[2021-04-02] MEDS: INSULIN GLARGINE 100 UNITS/ML, PEN SQ-INSULIN SCH ×2 (07:50→21:10)
[2021-04-02] MEDS: INSULIN LISPRO 100 UNITS/ML, PEN SQ-INSULIN SCH ×4 (07:50→21:00)
[2021-04-02] MEDS ORDERED: BUDESONIDE 0.5 MG/2 ML INHA INH SCH (12:00)
[2021-04-02 15:35] VITALS: BP 192/87
[2021-04-02] MEDS: LABETALOL 5MG/ML, 20ML IVPush PRN (15:37)
[2021-04-02 16:29] VITALS: BP 177/77
[2021-04-02] MEDS: FUROSEMIDE 20 MG TABLET PO SCH (16:50)
[2021-04-02] MEDS: POTASSIUM CHLORIDE 20 MEQ TAB.ER.PRT PO SCH (16:50)
[2021-04-02] MEDS ORDERED: LABETALOL 5MG/ML, 20ML IVPush PRN (17:00)
[2021-04-02] MEDS ORDERED: LABETALOL 5MG/ML, 20ML IVPush ONE (17:00)
[2021-04-02 19:14] VITALS: BP 154/77
[2021-04-02] MEDS: GUAIFENESIN ER 600 MG TABLET PO SCH (21:10)
[2021-04-02] MEDS: AZITHROMYCIN 500 MG in SODIUM CHLORIDE 0.9% 250 ML IV SCH (23:21)
[2021-04-03] MEDS: CEFTRIAXONE 1,000 MG in DEXTROSE 5% 50 ML IVPB SCH (00:47)
[2021-04-03 02:14] VITALS: BP 153/83
[2021-04-03] MEDS: ACETAMINOPHEN 325 MG TABLET PO PRN (04:17)
[2021-04-03 05:21] LABS: BASOPHILS % (AUTO) 1 % (0-1); EOSINOPHILS % (AUTO) 2 % (1-7); LYMPHOCYTES % (AUTO) 11 % (22-44); MEAN CORPUSCULAR HGB CONC 33.1 g/dL (33.2-36.2); MEAN PLATELET VOLUME 7.7 fL (7.4-10.4); MONOCYTES % (AUTO) 8 % (2-9); NEUTROPHILS % (AUTO) 79 % (42-75); PLATELET COUNT 198 x10^3/uL (130-400); RED BLOOD COUNT 3.54 x10^6/uL (4.38-5.82); RED CELL DISTRIBUTION WIDTH 16.4 % (9.4-14.8)
[2021-04-03 05:32] LABS: ANION GAP 6 mmol/L (5-15); CALCIUM 8.4 mg/dL (8.5-10.1); CHLORIDE 110 mmol/L (98-107); CREATININE 0.82 mg/dL (0.7-1.3)
[2021-04-03 07:34] VITALS: BP 177/88
[2021-04-03] MEDS: INSULIN LISPRO 100 UNITS/ML, PEN SQ-INSULIN SCH ×4 (07:38→20:01)
[2021-04-03] MEDS: INSULIN GLARGINE 100 UNITS/ML, PEN SQ-INSULIN SCH ×2 (07:39→20:00)
[2021-04-03] MEDS: LISINOPRIL 10 MG TABLET PO SCH ×2 (07:40→20:00)
[2021-04-03] MEDS: FUROSEMIDE 20 MG TABLET PO SCH ×2 (07:40→17:38)
[2021-04-03] MEDS: ASPIRIN 81 MG TABLET EC PO SCH (07:40)
[2021-04-03] MEDS: POTASSIUM CHLORIDE 20 MEQ TAB.ER.PRT PO SCH ×3 (07:40→17:38)
[2021-04-03] MEDS: GUAIFENESIN ER 600 MG TABLET PO SCH ×2 (07:40→20:00)
[2021-04-03] MEDS: ENOXAPARIN 40 MG/0.4 ML SQ SCH (07:41)
[2021-04-03] MEDS: SENNA/DOCUSATE TABLET PO SCH (07:41)
[2021-04-03] MEDS: SODIUM CHLORIDE FLUSH 10ML SYR IVF SCH ×2 (07:41→20:00)
[2021-04-03] MEDS ORDERED: LISI-170 PO (12:34)
[2021-04-03] MEDS ORDERED: CEFD300C37 PO (12:34)
[2021-04-03] MEDS ORDERED: FURO20TA3 PO (12:34)
[2021-04-03] MEDS ORDERED: POTA-143 PO (12:34)
[2021-04-03] MEDS ORDERED: AMLO-211 PO (12:34)
[2021-04-03] MEDS ORDERED: AZIT250T PO (12:34)
[2021-04-03] MEDS ORDERED: GUAI600T31 PO (12:34)
[2021-04-03] MEDS ORDERED: FLUT1DIS3 INH (12:34)
[2021-04-03 14:46] VITALS: BP 186/87
[2021-04-03] MEDS: AMLODIPINE 5 MG TABLET PO SCH (14:49)
[2021-04-03 18:37] VITALS: BP 167/77
[2021-04-03] MEDS: AZITHROMYCIN 500 MG in SODIUM CHLORIDE 0.9% 250 ML IV SCH (23:34)
[2021-04-04] MEDS: CEFTRIAXONE 1,000 MG in DEXTROSE 5% 50 ML IVPB SCH (01:06)
[2021-04-04] MEDS: ACETAMINOPHEN 325 MG TABLET PO PRN ×4 (03:03→22:27)
[2021-04-04] MEDS: ENOXAPARIN 40 MG/0.4 ML SQ SCH (08:33)
[2021-04-04] MEDS: POTASSIUM CHLORIDE 20 MEQ TAB.ER.PRT PO SCH ×3 (08:33→16:39)
[2021-04-04] MEDS: GUAIFENESIN ER 600 MG TABLET PO SCH ×2 (08:36→20:12)
[2021-04-04] MEDS: AMLODIPINE 5 MG TABLET PO SCH (08:36)
[2021-04-04] MEDS: LISINOPRIL 10 MG TABLET PO SCH ×2 (08:37→20:12)
[2021-04-04] MEDS: SENNA/DOCUSATE TABLET PO SCH (08:37)
[2021-04-04] MEDS: ASPIRIN 81 MG TABLET EC PO SCH (08:37)
[2021-04-04] MEDS: FUROSEMIDE 20 MG TABLET PO SCH ×2 (08:37→16:39)
[2021-04-04] MEDS: SODIUM CHLORIDE FLUSH 10ML SYR IVF SCH ×2 (08:38→20:12)
[2021-04-04] MEDS: INSULIN LISPRO 100 UNITS/ML, PEN SQ-INSULIN SCH ×4 (08:38→20:13)
[2021-04-04] MEDS: INSULIN GLARGINE 100 UNITS/ML, PEN SQ-INSULIN SCH ×2 (08:38→20:13)
[2021-04-04 08:39] VITALS: BP 144/73
[2021-04-04 18:40] VITALS: BP 144/76
[2021-04-04] MEDS: TRAZODONE 50MG TABLET PO PRN (22:27)
[2021-04-04] MEDS: AZITHROMYCIN 500 MG in SODIUM CHLORIDE 0.9% 250 ML IV SCH (22:27)
[2021-04-05 00:12] VITALS: BP 130/69
[2021-04-05] MEDS: CEFTRIAXONE 1,000 MG in DEXTROSE 5% 50 ML IVPB SCH (00:27)
[2021-04-05] MEDS: ACETAMINOPHEN 325 MG TABLET PO PRN ×2 (05:54→20:04)
[2021-04-05] MEDS: INSULIN LISPRO 100 UNITS/ML, PEN SQ-INSULIN SCH ×5 (07:32→20:05)
[2021-04-05] MEDS: SENNA/DOCUSATE TABLET PO SCH (07:33)
[2021-04-05] MEDS: AMLODIPINE 5 MG TABLET PO SCH (07:33)
[2021-04-05] MEDS: POTASSIUM CHLORIDE 20 MEQ TAB.ER.PRT PO SCH ×4 (07:33→16:52)
[2021-04-05] MEDS: ASPIRIN 81 MG TABLET EC PO SCH (07:33)
[2021-04-05] MEDS: GUAIFENESIN ER 600 MG TABLET PO SCH ×2 (07:33→20:04)
[2021-04-05] MEDS: ENOXAPARIN 40 MG/0.4 ML SQ SCH (07:33)
[2021-04-05] MEDS: LISINOPRIL 10 MG TABLET PO SCH ×2 (07:33→20:04)
[2021-04-05] MEDS: FUROSEMIDE 20 MG TABLET PO SCH ×3 (07:34→16:52)
[2021-04-05] MEDS: INSULIN GLARGINE 100 UNITS/ML, PEN SQ-INSULIN SCH ×2 (07:34→20:05)
[2021-04-05] MEDS: SODIUM CHLORIDE FLUSH 10ML SYR IVF SCH ×2 (07:35→20:04)
[2021-04-05 08:00] VITALS: BP 134/78
[2021-04-05] MEDS ORDERED: FUROSEMIDE 20 MG/2 ML IV ONE (10:30)
[2021-04-05 18:47] VITALS: BP 154/77
[2021-04-05] MEDS: TRAZODONE 50MG TABLET PO PRN (21:46)
[2021-04-06 00:26] VITALS: BP 146/69
[2021-04-06 07:14] VITALS: BP 138/71
[2021-04-06] MEDS: SENNA/DOCUSATE TABLET PO SCH (07:29)
[2021-04-06] MEDS: ENOXAPARIN 40 MG/0.4 ML SQ SCH (07:29)
[2021-04-06] MEDS: GUAIFENESIN ER 600 MG TABLET PO SCH (07:29)
[2021-04-06] MEDS: INSULIN LISPRO 100 UNITS/ML, PEN SQ-INSULIN SCH ×2 (07:29→11:15)
[2021-04-06] MEDS: ASPIRIN 81 MG TABLET EC PO SCH (07:30)
[2021-04-06] MEDS: INSULIN GLARGINE 100 UNITS/ML, PEN SQ-INSULIN SCH (07:30)
[2021-04-06] MEDS: AMLODIPINE 5 MG TABLET PO SCH (07:30)
[2021-04-06] MEDS: POTASSIUM CHLORIDE 20 MEQ TAB.ER.PRT PO SCH ×2 (07:30→11:15)
[2021-04-06] MEDS: FUROSEMIDE 20 MG TABLET PO SCH (07:30)
[2021-04-06] MEDS: LISINOPRIL 10 MG TABLET PO SCH (07:30)
[2021-04-06] MEDS: SODIUM CHLORIDE FLUSH 10ML SYR IVF SCH (07:31)
== END 2021-04-06 12:40 | disposition home or self-care (01) | DRG 871 ==
LOC: ED 20:00 → EDIP 23:13 → 3N 03-31 00:19
PROVIDERS: ADMIT Internal Medicine; ATTEND Hospitalist
PROC: 5A09357 Assistance with Respiratory Ventilation, Less than 24 Consecutive Hours, Continuous Positive Airway Pressure (ICD-10-PCS; principal; 2021-04-04)
DX: A41.9 Sepsis, unspecified organism (principal); J15.9 Unspecified bacterial pneumonia; E87.2 Acidosis; J44.1 Chronic obstructive pulmonary disease with (acute) exacerbation; J44.0 Chronic obstructive pulmonary disease with (acute) lower respiratory infection; D68.69 Other thrombophilia; D64.9 Anemia, unspecified; E03.9 Hypothyroidism, unspecified; B19.20 Unspecified viral hepatitis C without hepatic coma; I27.20 Pulmonary hypertension, unspecified; E11.51 Type 2 diabetes mellitus with diabetic peripheral angiopathy without gangrene; E11.65 Type 2 diabetes mellitus with hyperglycemia; E78.5 Hyperlipidemia, unspecified; I11.0 Hypertensive heart disease with heart failure; I48.0 Paroxysmal atrial fibrillation; I50.9 Heart failure, unspecified; W18.39XA Other fall on same level, initial encounter; I87.8 Other specified disorders of veins; S80.212A Abrasion, left knee, initial encounter; Z20.822 Contact with and (suspected) exposure to COVID-19; Z59.0 Homelessness; Z82.49 Family history of ischemic heart disease and other diseases of the circulatory system; Z83.3 Family history of diabetes mellitus; Z86.73 Personal history of transient ischemic attack (TIA), and cerebral infarction without residual deficits; Z87.891 Personal history of nicotine dependence; Z91.11 Patient's noncompliance with dietary regimen; Y93.89 Activity, other specified; Y92.89 Other specified places as the place of occurrence of the external cause; Y99.8 Other external cause status
CPT/HCPCS: 36415; 71045; 80048; 80053; 82962; 83036; 83605; 84145; 84484; 85025; 87040; 93005; 96361; 96374; 99285; G0378; J0456; J0696; J1644; J1650; U0005; J1815; J1940; J7030; J7050; J7512; U0003